=== PATIENT | female | born 1945 | race Caucasian/White ===

== ENCOUNTER 2016-12-11 17:01 | Emergency (ER) | payer OTHER ==
[~2016-12-11] VITALS: Ht 163.8 cm; Wt 70.9 kg
[~2016-12-11 17:01] MED LIST: ACET-749 PO; ALBUAER2 INH; PENI-82 PO
[2016-12-11 17:21] VITALS: TEMP 36.7; Ht 163.8 cm; Wt 70.9 kg
[2016-12-11] MEDS ORDERED: EMPTY 8 DRAM VIAL ONE (19:39)
--- NOTE | 2016-12-11 19:42 | EMERGENCY ROOM VISIT NOTE ---
History Report prepared by Zoey: Tracey Shane Under the Supervision of: Dr. Esa Levy M.D. First contact with patient: 19:24 Chief Complaint: OTHER COMPLAINT Stated Complaint: CELLULITUS History of Present Illness The patient is a 71 year old female who presents to the Emergency Room with complaints of a possible worsening infection on her right leg that started on November 10. She notes while she was on vacation, she first noticed redness and swelling on her right lower leg. That evening, she started developing a fever, chills and nausea. She got back into town from vacation 5 days later, and saw the [facility] twice for antibiotic injections. She then followed up with her PCP, Dr. Hoyt with [facility], and was placed on a 10 day course of Keflex. She noticed no improvement, and was then placed on Doxycycline, and after that Clindamycin, which she is still taking. Dr. Hoyt then referred the patient to infectious disease, and she is set to see Dr. Hale with [facility] next Thursday, 6 days from now. The patient rates her current discomfort as a 0/10. She also notes she got bit by something on her right hip area and the area has been very itchy. She admits to scratching excessively, but has not taken any Benadryl for the itching yet. The patient denies any recent fevers or chills. She admits to some nausea but notes this may be from the antibiotics she has been taking. She is taking a probiotic while on the antibiotics. Source of History: patient Onset: November 10, 2016 Position: leg (right) Symptom Intensity: 0/10 Timing: worsening Modifying Factors (Relieving): other (Clindamycin, Doxycycline, Keflex) Associated Symptoms: + nausea, No fevers, No chills Review of Systems See HPI for pertinent positives & negatives. A total of 10 systems reviewed and were otherwise negative. Past Medical & Surgical Medical Problems: (1) Asthma Social History Smoking Status: Former Smoker Alcohol Use: none Drug Use: none Marital Status: Housing Status: lives alone Occupation Status: employed Current/Historical Medications Scheduled Cholecalciferol (Vitamin D3), 1 TAB PO DAILY Clindamycin Hcl (Cleocin), 1 CAP PO BID Doxycycline Hyclate (Doxycycline Hyclate), 1 TAB PO BID Metformin Hcl (Glucophage), 500 MG PO DAILY Nortriptyline (Pamelor), 10 MG PO HS Scheduled PRN Albuterol Hfa (Ventolin Hfa), 2 PUFFS INH Q4 PRN for Wheezing Hydrocodone/Acetaminophen 5MG/325MG (Madison 5MG/325MG), 1 TABLET PO Q6 PRN for Pain Allergies Coded Allergies: Sulfamethoxazole w/Trimethoprim (Verified Allergy, Intermediate, GI SYMPTOMS, 12/11/16) Molds and Smuts (Unverified Allergy, Mild, 12/11/16) Clarithromycin (Verified Adverse Reaction, Unknown, NAUSEA AND VOMITING, ) Uncoded Allergies: GRASSES (Allergy, Mild, 11/28/06) Physical Exam Vital Signs Date Time Temp Pulse Resp B/P (MAP) Pulse Ox O2 Delivery O2 Flow Rate FiO2 12/11/16 19:53 76 18 169/107 92 12/11/16 17:21 36.7 89 20 164/71 93 Room Air Physical Exam GENERAL: Patient is in no acute distress. HEENT: No acute trauma, normocephalic atraumatic, mucous membranes moist, no nasal congestion, no scleral icterus. NECK: No stridor, no adenopathy, no meningismus, trachea is midline. LUNGS: Clear to auscultation bilaterally, no wheeze, no rhonchi, breath sounds equal. HEART: Without murmurs gallops or rubs, regular rate and rhythm. ABDOMEN: Soft, nontender, bowel sounds positive, no hernias, no peritonitis. EXTREMITIES: No cyanosis or edema, full range of motion of all the joints without pain or difficulty, no signs for acute trauma. NEUROLOGIC: Oriented x 3, no acute motor or sensory deficits, no focal weakness. SKIN: Right lower extremity erythema with dry skin, consistent with possible resolving cellulitis. Mild warmth present, no drainage. Area of erythema to the right buttock consistent with an insect bite. Mild warmth, no drainage. Patient states the area is itchy. Medical Decision & Procedures Medications Administered Medications (Trade) Dose Ordered Sig/Iris Route Start Time Stop Time Status Last Admin Dose Admin Diphenhydramine HCl (Benadryl Cap) 50 mg NOW ONCE PO 12/11/16 19:45 12/11/16 19:46 DC 12/11/16 19:53 50 MG ED Course 1925: The patient was evaluated in room C8. A complete history and physical exam was performed. 1944: I reevaluated the patient. She is feeling well and resting comfortably. I discussed her results and discharge instructions and she verbalized complete understanding and agreement. 1944: Benadryl 50 mg PO. Medical Decision The differential diagnoses considered include cellulitis, insect bite or sting, failed outpatient treatment. The patient presents with some itchy red area to the right buttock. The right lower extremity is currently being treated for cellulitis and the patient was concerned that the red area to the buttock was spread of the cellulitis. There has been no fever or vomiting. She actually believes the right lower extremity redness is improving. She admits that she was bitten or stung by an insect yesterday in the right buttock area and she states this area has been itchy ever since. The patient is suffering from a local reaction from an insect bite or sting in the right buttock. I do not believe this is spread of her cellulitis. She was reassured. She is being discharged to continue her clindamycin and to return for fever or worsening symptoms. She has an ID appointment in several days. Medication Reconcilliation Current Medication List: was personally reviewed by me Blood Pressure Screening Patient's blood pressure: Elevated blood pressure Blood pressure disposition: Elevated BP felt to be situational Impression Primary Impression: Insect bite Additional Impression: Cellulitis Scribe Attestation The scribe's documentation has been prepared under my direction and personally reviewed by me in its entirety. I confirm that the note above accurately reflects all work, treatment, procedures, and medical decision making performed by me. Departure Information Dispostion Home / Self-Care Referrals Niles Hoyt M.D.([facility]) (PCP) Patient Instructions My [facility] Additional Instructions use benadryl 2 tab 3x per day for the itching and redness of the buttock continue the clindamycin return for fever or chills or worsening redness follow with ID as scheduled Problem Qualifiers
[2016-12-11 19:53] VITALS: BP 169/107; PULSE 76; O2SAT 92
[2016-12-11] MEDS ORDERED: CHOL20007 PO (19:58)
[2016-12-11] MEDS ORDERED: GLC/500 PO (20:03)
[2016-12-11] MEDS ORDERED: HYDR-5688 PO (20:03)
[2016-12-11] MEDS ORDERED: DOXY100T PO (20:03)
[2016-12-11] MEDS ORDERED: VNTHFA/IN INH (20:03)
[2016-12-11] MEDS ORDERED: CLIN300C2 PO (20:03)
[2016-12-11] MEDS ORDERED: NORT10CA2 PO (20:04)
== END 2016-12-11 19:55 | disposition home or self-care (01) ==
LOC: C.EDB 17:02 → C.EDC 19:55
DX: L03.317 Cellulitis of buttock (principal); W57.XXXA Bitten or stung by nonvenomous insect and other nonvenomous arthropods, initial encounter; J45.909 Unspecified asthma, uncomplicated; Z87.891 Personal history of nicotine dependence; Z88.2 Allergy status to sulfonamides; Z88.3 Allergy status to other anti-infective agents; Z91.09 Other allergy status, other than to drugs and biological substances; Z79.84 Long term (current) use of oral hypoglycemic drugs; Z79.899 Other long term (current) drug therapy

== ENCOUNTER → 2016-12-17 | Outpatient (CLI) | payer OTHER ==
[~2016-12-17] MED LIST changes: -ACET-749 PO; -ALBUAER2 INH; +CHOL20007 PO; +CLIN300C2 PO; +DOXY100T PO; +GLC/500 PO; +HYDR-5688 PO; +NORT10CA2 PO; -PENI-82 PO; +VNTHFA/IN INH
[2016-12-17 19:38] LABS: LYME DISEASE AB IGG NEG (NEG); LYME DISEASE AB IGM NEG (NEG)
== END | disposition home or self-care (01) ==
LOC: C.LAB1850 16:17
PROVIDERS: ATTEND Internal Medicine Infectious Disease
DX: L03.115 Cellulitis of right lower limb (principal)

== ENCOUNTER 2023-06-12 13:48 | Inpatient (IN) ==
--- NOTE | 2023-06-12 13:52 | ED Triage Note ---
Date of Service June 12, 2023 Provider in Triage Author: Monika Rodriguez History of Present Illness This patient was briefly evaluated while in triage. An abbreviated physical exam was performed. This patient is a 77-year-old Female who presents to the ED for evaluation of shob, reports hx COPD and bronchial asthma. Reports started one week ago. 87% in triage. Physical Exam Initial orders for labs and / or imaging were placed and patient was placed in the waiting area until a bed is available. Please see further documentation for the full ED course.
--- NOTE | 2023-06-12 15:05 | XRay Report ---
XR chest 1V not portable HISTORY: Dyspnea COMPARISON: Chest CT outside hospital 03/19/2021 FINDINGS: The heart is enlarged. There is diffuse interstitial/vascular thickening consistent with mi ld pulmonary edema. There are small bilateral pleural effusions. No pneumothorax. Bibasilar linear de nsities favor subsegmental atelectasis. Calcifications within the aortic knob. No acute fractures. IMPRESSION: Cardiomegaly with mild pulmonary edema and small bilateral pleural effusions. ACT 112: Negative or not required by law. Electronically signed by: Bowen Love M.D. 06/12/2023 3:04 PM
[2023-06-12 15:23] LABS: Basophils # (auto) 0.05 K/uL (0.00-0.20); Basophils % (auto) 0.3 %; Eosinophils # (auto) 0.07 K/uL (0.00-0.50); Eosinophils % (auto) 0.5 %; Hematocrit (blood only) 35.6 % (37.0-47.0); Hemoglobin 11.5 g/dl (12.0-16.0); Immature Granulocytes # (auto) 0.07 K/uL (0.01-0.20); Immature Granulocytes % (auto) 0.5 %; Lymphocytes # (auto) 1.15 K/uL (1.20-3.40); Lymphocytes % (auto) 7.5 %; Mean Corpuscular Hemoglobin 29.3 pg (25.0-34.0); Mean Corpuscular Hgb Conc 32.3 g/dL (32.0-36.0); Mean Corpuscular Volume 90.8 fL (80.0-100.0); Mean Platelet Volume 9.3 fL (9.4-12.4); Monocytes # (auto) 1.02 K/uL (0.11-0.59); Monocytes % (auto) 6.7 %; Neutrophils # (auto) 12.88 K/uL (1.40-6.50); Neutrophils % (auto) 84.5 %; Platelet Count 383 K/uL (130-400); RDW Coefficient of Variation 12.8 % (11.5-14.5); RDW Standard Deviation 42.1 fL (36.4-46.3); Red Blood Count 3.92 M/uL (4.20-5.40); White Blood Count 15.24 K/ul (4.8-10.8)
[2023-06-12 15:39] LABS: Albumin Globulin Ratio 1.1 (0.9-2); Albumin Level 3.6 gm/dl (3.4-5.0); BUN Creatinine Ratio 30.7 (10-20); Bilirubin,Total 0.3 mg/dl (0.2-1.0); Calcium 9.3 mg/dl (8.6-10.3); Creatinine Clr Calc Pharmacy 64.9 ml/min; Est GFR (African American) 89.7 ml/min; Est GFR (Non-African American) 77.4 ml/min; Globulin 3.3 gm/dl (2.5-4.0); Magnesium 1.7 mg/dl (1.7-2.4); Total Protein 6.9 gm/dl (6.0-8.3)
--- NOTE | 2023-06-12 15:46 | Electrocardiogram Report ---
Test Reason : Blood Pressure : / mmHG Vent. Rate : 093 BPM Atrial Rate : 093 BPM P-R Int : 136 ms QRS Dur : 096 ms QT Int : 352 ms P-R-T Axes : 042 -14 026 degrees QTc Int : 437 ms Normal sinus rhythm Inferior infarct , age undetermined Poor R wave progression, consider anterior AK vs. lead placement vs. LVH Abnormal ECG No previous ECGs available Confirmed by Eric Murray ([id number]) on 06/12/2023 3:45:48 PM Referred By: Confirmed By:Eric Murray
[2023-06-12 15:49] LABS: Troponin I High Sensitivity 3508.2 pg/ml (0-14)
[2023-06-12 15:58] LABS: Influenza A virus by PCR Negative (Neg); Influenza B virus by PCR Negative (Neg); RSV by PCR Negative (Neg); SARS CoV2 RNA(COVID-19) Ceph NEGATIVE (Negative)
[2023-06-12] MEDS: ALBUT/IPRATROP 3MG/0.5MG NEB 3 ML VIAL INH STA (16:11)
[2023-06-12] MEDS: methylPREDNISolone 125 MG/2 ML VIAL IV STA (16:11)
[2023-06-12] MEDS: FUROSEMIDE 40 MG/4 ML VIAL IV ONE ×2 (16:55)
--- NOTE | 2023-06-12 17:46 | History & Physical Report ---
Date of Service June 12, 2023 Assessment & Plan (1) Shortness of breath: Plan: Patient appears to have had some kind of cardiac event last weekend when she reported severe intermittent chest pain and then worsening shortness of breath on Thursday. It is now Thursday and she is no better despite prednisone which normally helps her for COPD exacerbations. She is not wheezing and has no new sputum changes or respiratory symptoms or wheezing that would be suggestive of a COPD exacerbation. She has no known cardiac history but does have risk factors for CAD, and currently has an elevation in troponin enzyme to 3508. She also has EKG changes that are concerning for possible ischemia including ST depressions in I and AVL, and in V4-6. Repeat trop decreased to 3172 and she remains chest pain-free. I am somewhat concerned that her SOB is her anginal equivalent given the history and risk factors for CAD and with her history. She was given ASA 324mg and started on nitro paste with improvement in breathing symptoms. Of note, she also had a good diuretic response to Lasix with 1800cc out around the same time. Will start heparin drip for treatment of possible NSTEMI and trend EKG and enzymes overnight. Consult cardiology and echo ordered. (2) Congestive heart failure: Plan: Patient has new pleural effusions and pulmonary edema. She may have acute heart failure to describe her shortness of breath. Given Lasix today with improvement in breathing symptoms. Echo pending. Hold on additional Lasix in the morning for now until she can be re-evaluated. (3) Diabetes mellitus, type 2: Plan: chronic, stable. Hold metformin and continue with basal bolus insulin while hospitalized. (4) Migraine: Plan: chronic, hold on NSAIDs at this time. APAP as needed. (5) Hypertension: Plan: chronic, stable. Cont home losartan. (6) Chronic obstructive pulmonary disease: Plan: chronic, stable. Not in exacerbation. Cont home inhalers. (7) Nocturnal hypoxemia: Plan: Per records she is chronically on 2-3 LPM at night for treatment of COPD. Cont oxygen support as needed, with worsening hypoxia likely related to pleural effusions/pulm edema mentioned above. DVT proph: heparin Full Code as confirmed with patient and her family on admission. Dispo- to PCU. I spent a total [id number] coordinating, documenting, and providing care for this patient excluding time spent in the performance of separately billed services DO Zaheer [facility] History of Present Illness Chief Complaint: respiratory problems Primary Care Provider: Cordell Yi MD The patient is a 77 yo F with no known cardiac history who presents with shortness of breath. She is requiring oxygen which she doesn't normally use during the day at home, but is on it at 2LPM at night for COPD. She reports SOB that has been progressive over the past two weeks, getting worse over the weekend. The weekend worsening was also associated with intermittent chest discomfort. that lasted SAt and Sun and then resolved. She reports that on Thursday, there was no further chest pain but her breathing got worse. She reports no increased cough outside of her usual sputum production and no fevers or chills. Nasal swab is negative today for viral illness. She reports her chest pain was in the left anterior chest wall and travelled to her left shoulder. Denies palpitations. It wasn't clear what was making the chest pain worse or better per history but it was described as intermittent. Pt reports normal appetite and normal BMs. She has had fatigue and difficulty sleeping 2/2 headaches at home that have been persistent since Jan. She takes 4-6 Advil or 4 Aleve per day to treat the headache but that typically won't completely help and she has to rely on oxycodone, but doesn't use this daily. As a result of the shortness of breath, she went to urgent care on and received a course of prednisone. She reports taking prednisone 50mg on and Thu with no improvement, and with breathing worsening she decided to come to the ER. Denies active chest pain at this time. She is still reporting some SOB as if she cannot take a full breath in. She reports using Nicorette lozenges approx 10 radha of 4mg daily since quitting smoking several years ago. She drinks two cups of coffee daily. She is a diabetic on metformin and has HTN and hyperlipidemia. CXR today reveals mild pulmonary edema and bilateral pleural effusions which are new. She does have a slight increase in her WBC count which may be from the prednisone or some other active inflammation. She was given one dose of Lasix 40mg IV and had 1800cc out in response to this. Allergies Allergy/AdvReac Type Severity Reaction Status Date / Time Bactrim Allergy Intermediate GI SYMPTOMS Verified 12/11/16 20:08 sulfamethoxazole AdvReac Intermediate GI SYMPTOMS Verified 03/31/23 14:00 trimethoprim AdvReac Intermediate GI SYMPTOMS Verified 03/31/23 14:00 clarithromycin AdvReac Mild NAUSEA AND Verified 03/31/23 14:00 VOMITING Home Medications Medication Instructions Recorded Confirmed Type losartan 25 mg tablet 25 mg PO HS 03/01/19 06/12/23 History ibuprofen 200 mg tablet (Advil) 200 mg PO QID PRN Pain 03/07/19 06/12/23 History ipratropium 0.5 mg-albuterol 3 mg 3 ml inhalation Q6H PRN wheezing, 06/21/19 06/12/23 Rx (2.5 mg base)/3 mL nebulization dyspnea, cough #90 mL soln oxycodone-acetaminophen 5 mg-325 1 tab PO Q6H PRN pain #20 tabs 10/17/19 06/12/23 Rx mg tablet (Percocet) omeprazole 20 mg tablet,delayed 20 mg PO QAM 06/22/20 06/12/23 History release Oxygen Home [id number] #1 ea 06/05/22 06/12/23 Rx metformin 500 mg tablet 500 mg PO BID 03/31/23 06/12/23 History nortriptyline 10 mg capsule 50 mg PO HS 03/31/23 06/12/23 History albuterol sulfate 90 mcg/actuation 2 puff inhalation Q4H PRN Wheezing 04/03/23 06/12/23 Rx aerosol inhaler #6.7 grams fluticasone fur. 200 mcg-umeclid 1 inh inhalation DAILY #90 puffs 04/03/23 06/12/23 Rx 62.5 mcg-vilant 25 mcg inhalat.powder (Trelegy Ellipta) atorvastatin 20 mg tablet 20 mg PO QAM 06/12/23 06/12/23 History baclofen 10 mg tablet 10 mg PO HS 06/12/23 06/12/23 History lubiprostone 24 mcg capsule 24 mcg PO BID 06/12/23 06/12/23 History (Amitiza) prednisone 10 mg tablet See Rx Instructions .Route .COMPLEX 06/12/23 06/12/23 History Past Med/Surg History Medical History (Updated 06/12/23 @ 21:04 by Rhea Benedict, ) Nocturnal hypoxemia Cervical spinal stenosis per [facility] record Cervical myofascial pain syndrome per s record GERD (gastroesophageal reflux disease) Asthma-COPD overlap syndrome inh and nebulizer prn Thoracic outlet syndrome hx Heartburn hx Diabetes mellitus, type 2 oral med Migraine hx On home oxygen therapy 3L/MIN NC HS + WHILE SLEEPING Chronic obstructive pulmonary disease Hypertension Surgical History History of open reduction and internal fixation (ORIF) procedure 1972-fix compound fx rt leg. Hx laparoscopic cholecystectomy History of esophagogastroduodenoscopy (EGD) History of removal of cyst behind left ear History of oral surgery gum sx History of tooth extraction all top teeth; getting 7 teeth removed on 05/08/22 History of surgery RIB REMOVAL FOR THORACIC OUTLET SYNDROME History of section X 2 History of tonsillectomy History of colonoscopy Family History Other No family history of adverse response to anesthesia Social History Smoking Status: Former smoker Tobacco Type: Cigarettes Age Started Using Tobacco: 19; Age Quit Using Tobacco: 69; packs per day: 1; Second Hand Exposure: No; Do You Dip or Chew Tobacco: No; Hx Alcohol Use: No Hx Substance Use: No Preferred Language: Maltese Communication Ability: Effective Gas Producer Required: No Beliefs That Will Affect Care: None Current Living Situation: Alone Feels Safe at Home: Yes Assistive Devices: Glasses, Nebulizer and Oxygen - at Night Physical Exam Physical Exam: CONSTITUTIONAL: WNWD, vitals as above, generally well-appearing, NAD EYES: normal conjunctivae, no scleral icterus ENT: external ear and nose normal, MMM RESPIRATORY: clear to auscultation bilaterally with mild crackles at the bases. No wheezing or rales or rhonchi, normal respiratory effort. CARDIOVASCULAR: regular rate and rhythm, S1 and 2 heard without murmurs, gallops or rubs, no JVD, no peripheral edema CHEST: inspection of chest was normal GASTROINTESTINAL: normal bowel sounds, soft, nontender, ND, no guarding MUSCULOSKELETAL: strength 5/5 throughout, head is normocephalic and atraumatic SKIN: warm and dry NEUROLOGIC: CN 2-12 grossly intact, no sensory deficit, normal cognition, normal speech, no tremor PSYCHIATRIC: alert cooperative and oriented to person, place and time. Euthymic mood, makes good eye contact, language grossly intact, recent and remote memory grossly intact. Intermittent confusion noted on occasion, but mostly clear. Results & Data Results & Data Vital Signs (Past 12 Hours) Vital Signs Temp Pulse Pulse Resp BP BP Pulse Ox 06/12/23 16:18 89 06/12/23 16:07 06/12/23 16:06 93 H 24 95 06/12/23 16:04 36.8 C 93 H 18 149/74 H 95 06/12/23 13:49 36.8 C 97 H 16 163/83 H 87 L O2 Del Method O2 Flow Rate 06/12/23 16:18 06/12/23 16:07 Nasal Cannula 2 06/12/23 16:06 Nasal Cannula 2 06/12/23 16:04 Nasal Cannula 2 06/12/23 13:49 Room Air Laboratory Results Short CBC 06/12/23 Range/Units 15:08 WBC 15.24 H (4.8-10.8) K/ul Hgb 11.5 L (12.0-16.0) g/dl Hct 35.6 L (37.0-47.0) % Plt Count 383 (130-400) K/uL BMP 06/12/23 15:08 Sodium 136 Potassium 4.0 Chloride 101 Carbon Dioxide 27 BUN 23 Creatinine 0.75 Glucose 168 H Calcium 9.3 Liver Function 06/12/23 Range/Units 15:08 Total Bilirubin 0.3 (0.2-1.0) mg/dl AST 14 (13-39) U/L ALT 21 (7-52) U/L Alkaline Phosphatase 130 H (34-104) U/L Albumin 3.6 (3.4-5.0) gm/dl Urine 06/12/23 Range/Units Unknown Urine Color Yellow Urine Appearance Clear (Clear) Urine pH 6.0 (4.5-7.5) Ur Specific Jenner 1.009 (1.000-1.030) Urine Protein Negative (Negative) Urine Glucose (UA) Negative (Negative) Diagnostic Findings Chest X-Ray 06/12/23 13:52 XR chest 1V not portable HISTORY: Dyspnea COMPARISON: Chest CT outside hospital 03/19/2021 FINDINGS: The heart is enlarged. There is diffuse interstitial/vascular thickening consistent with mild pulmonary edema. There are small bilateral pleural effusions. No pneumothorax. Bibasilar linear densities favor subsegmental atelectasis. Calcifications within the aortic knob. No acute fractures. IMPRESSION: Cardiomegaly with mild pulmonary edema and small bilateral pleural effusions. ACT 112: Negative or not required by law. Electronically signed by: Bowen Love M.D. 06/12/2023 3:04 PM Medications Administered Current Inpatient Medications Heparin Sodium (Porcine) (Heparin Sod (Porcine) 1000 Unit/Ml) 1 units IV NOW ONE Stop: 06/12/23 21:14 Heparin Sodium/Dextrose (Heparin Iv Adult Wt-Based Standard W/ Initial Bolus Protocol) 1 each IV NOW STA; Protocol Stop: 06/12/23 20:59 Heparin Sodium/Dextrose (Heparin Sodium/Dextrose) 25,000 units in 500 mls @ 0.02 mls/hr IV .Q24H MORRO; Protocol Stop: 07/12/23 21:14 Nitroglycerin (Nitroglycerin 2% Ointment 30gm Tube) 0.5 inch EXT Q6H MORRO Stop: 07/12/23 16:59 Last Admin: 06/12/23 19:02 Dose: 0.5 inch (2) Congestive heart failure Heart failure chronicity: acute Heart failure type: unspecified Qualified Code(s): I50.9 - Heart failure, unspecified
--- NOTE | 2023-06-12 18:15 | Emergency Department Note ---
History of Present Illness General Chief Complaint: Respiratory Problems Stated Complaint: CANNOT BREATHE Time Seen by Provider: 06/12/23 15:49 History of Present Illness Provider Complaint: shortness of breath Onset (ago): week(s) (1) Severity: moderate Consistency/Duration: + progressively worsening Relieved By: + oxygen Exacerbated By: + lying flat, + exertion and + coughing Known history of: COPD Associated symptoms: + chest pain (Tightness), + wheezing and + orthopnea; no pain with inspiration, no fever, no cough, no sputum production, no polyuria, no palpitations, no hemoptysis, no diaphoresis or no abdominal pain Treatment prior to arrival: oxygen HPI Narrative: Patient reports increased swelling of her bilateral lower extremities. No history of CHF. Family history of CHF. No chest pain difficulty breathing. Related Data Home oxygen amount: as needed at night Home Medications Medication Instructions Recorded Confirmed Type losartan 25 mg tablet 25 mg PO HS 03/01/19 06/12/23 History ibuprofen 200 mg tablet (Advil) 200 mg PO QID PRN Pain 03/07/19 06/12/23 History ipratropium 0.5 mg-albuterol 3 mg 3 ml inhalation Q6H PRN wheezing, 06/21/19 06/12/23 Rx (2.5 mg base)/3 mL nebulization dyspnea, cough #90 mL soln oxycodone-acetaminophen 5 mg-325 1 tab PO Q6H PRN pain #20 tabs 10/17/19 06/12/23 Rx mg tablet (Percocet) omeprazole 20 mg tablet,delayed 20 mg PO QAM 06/22/20 06/12/23 History release Oxygen Home E0424 #1 ea 06/05/22 06/12/23 Rx metformin 500 mg tablet 500 mg PO BID 03/31/23 06/12/23 History nortriptyline 10 mg capsule 50 mg PO HS 03/31/23 06/12/23 History albuterol sulfate 90 mcg/actuation 2 puff inhalation Q4H PRN Wheezing 04/03/23 06/12/23 Rx aerosol inhaler #6.7 grams fluticasone fur. 200 mcg-umeclid 1 inh inhalation DAILY #90 puffs 04/03/23 06/12/23 Rx 62.5 mcg-vilant 25 mcg inhalat.powder (Trelegy Ellipta) atorvastatin 20 mg tablet 20 mg PO QAM 06/12/23 06/12/23 History baclofen 10 mg tablet 10 mg PO HS 06/12/23 06/12/23 History lubiprostone 24 mcg capsule 24 mcg PO BID 06/12/23 06/12/23 History (Amitiza) prednisone 10 mg tablet See Rx Instructions .Route .COMPLEX 06/12/23 06/12/23 History Allergies Allergy/AdvReac Type Severity Reaction Status Date / Time Bactrim Allergy Intermediate GI SYMPTOMS Verified 12/11/16 20:08 sulfamethoxazole AdvReac Intermediate GI SYMPTOMS Verified 03/31/23 14:00 trimethoprim AdvReac Intermediate GI SYMPTOMS Verified 03/31/23 14:00 clarithromycin AdvReac Mild NAUSEA AND Verified 03/31/23 14:00 VOMITING Past Med/Surg History Medical History Cervical spinal stenosis per [facility] record Cervical myofascial pain syndrome per s record GERD (gastroesophageal reflux disease) Asthma-COPD overlap syndrome inh and nebulizer prn Thoracic outlet syndrome hx Heartburn hx Diabetes mellitus, type 2 oral med Migraine hx On home oxygen therapy 3L/MIN NC HS + WHILE SLEEPING Chronic obstructive pulmonary disease Hypertension Surgical History History of open reduction and internal fixation (ORIF) procedure 1973-fix compound fx rt leg. Hx laparoscopic cholecystectomy History of esophagogastroduodenoscopy (EGD) History of removal of cyst behind left ear History of oral surgery gum sx History of tooth extraction all top teeth; getting 7 teeth removed on 05/08/22 History of surgery RIB REMOVAL FOR THORACIC OUTLET SYNDROME History of section X 2 History of tonsillectomy History of colonoscopy Family History Other No family history of adverse response to anesthesia Social History Smoking Status: Former smoker Tobacco Type: Cigarettes Age Started Using Tobacco: 19; Age Quit Using Tobacco: 69; packs per day: 1; Second Hand Exposure: No; Do You Dip or Chew Tobacco: No; Hx Alcohol Use: No Hx Substance Use: No Preferred Language: Belgian Communication Ability: Effective Human Resource Professional Required: No Beliefs That Will Affect Care: None Current Living Situation: Alone Feels Safe at Home: Yes Assistive Devices: Glasses, Nebulizer and Oxygen - at Night Physical Exam 2 Vital Signs: Vital Signs - 24 hr 06/12/23 13:49 06/12/23 16:04 06/12/23 16:06 Temperature 36.8 C 36.8 C Temperature Source Temporal Artery Sc an Oral Pulse Rate 97 H 93 H Pulse Rate [Apical ] 93 H Pulse Rhythm Regular Pulse Rhythm [Apic al] Regular Pulse Strength [Ap ical] Normal Respiratory Rate 16 18 24 Respiratory Effort / Characteristics Non-Labored Sponta neous SOB on Exertion Respiratory Depth Normal Normal Respiratory Patter n Regular Blood Pressure 163/83 H Blood Pressure [Le ft Arm] 149/74 H Blood Pressure Radha n 109 Blood Pressure Radha n [Left Arm] 99 Pulse Oximetry 87 L 95 95 Oxygen Delivery Me thod Room Air Nasal Cannula Nasal Cannula Oxygen Flow Rate 2 2 Sepsis Recent Feve r Within 48 Hours No Sepsis New/Unexpla ined Change in Men jose Status No Sepsis Action Take n by Nursing No Action Required 06/12/23 16:07 06/12/23 16:18 Temperature Temperature Source Pulse Rate 89 Pulse Rate [Apical ] Pulse Rhythm Pulse Rhythm [Apic al] Pulse Strength [Ap ical] Respiratory Rate Respiratory Effort / Characteristics SOB on Exertion Respiratory Depth Normal Respiratory Patter n Regular Blood Pressure Blood Pressure [Le ft Arm] Blood Pressure Radha n Blood Pressure Radha n [Left Arm] Pulse Oximetry Oxygen Delivery Me thod Nasal Cannula Oxygen Flow Rate 2 Sepsis Recent Feve r Within 48 Hours Sepsis New/Unexpla ined Change in Men jose Status Sepsis Action Take n by Nursing Physical Exam: Physical Exam GENERAL: oriented to person, place, and time. appears well-developed and well- nourished. HENT: Exam performed. - Head: Normocephalic and atraumatic. EYES: Conjunctivae and EOM are normal. Right eye exhibits no discharge. Left eye exhibits no discharge. No scleral icterus. NECK: Normal range of motion. Neck supple. No JVD present. CV: Normal rate, regular rhythm, normal heart sounds and intact distal pulses. 2+ pitting edema of the bilateral lower extremities. Palpable radial pulses bue. PULM/CHEST: Inspiratory crackles at bases. ABD: The abdomen is soft. There is no tenderness. NEURO: Motor and sensation grossly intact. SKIN: Skin is warm and dry. He is not diaphoretic. PSYCH: normal mood and affect. Behavior is normal. Judgment and thought content normal. Course Course 1549: The patient was evaluated in room B2. A complete history and physical exam was performed Administered Medications Discontinued Medications Albuterol (Albut/Ipratrop 3mg/0.5mg Neb 3 Ml Vial) 3 ml INH NOW STA Stop: 06/12/23 13:53 Last Admin: 06/12/23 16:11 Dose: Not Given Documented By: SAM Furosemide (Furosemide 40 Mg/4 Ml Vial) 40 mg IV ONE ONE Stop: 06/12/23 16:17 Last Admin: 06/12/23 16:55 Dose: 40 mg Documented By: SAM Furosemide (Furosemide 40 Mg/4 Ml Vial) Confirm Administered Dose 40 mg IV .STK- MED ONE Stop: 06/12/23 16:50 Last Admin: 06/12/23 16:55 Dose: Not Given Documented By: SAM Methylprednisolone (Methylprednisolone 125 Mg/2 Ml Vial) 125 mg IV NOW STA Stop: 06/12/23 13:53 Last Admin: 06/12/23 16:11 Dose: Not Given Documented By: SAM Medical Decision Making Laboratory Data Attestation: I reviewed the patient's lab results. 06/12/23 15:08 06/12/23 15:08 Lab Results 06/12/23 06/12/23 06/12/23 Range/Units 15:06 15:08 Unknown WBC 15.24 H (4.8-10.8) K/ul RBC 3.92 L (4.20-5.40) M/uL Hgb 11.5 L (12.0-16.0) g/dl Hct 35.6 L (37.0-47.0) % MCV 90.8 (80.0-100.0) fL MCH 29.3 (25.0-34.0) pg MCHC 32.3 (32.0-36.0) g/dL RDW Std Deviation 42.1 (36.4-46.3) fL RDW Coeff of Monica 12.8 (11.5-14.5) % Plt Count 383 (130-400) K/uL MPV 9.3 L (9.4-12.4) fL Immature Gran % (Auto) 0.5 % Neut % (Auto) 84.5 % Lymph % (Auto) 7.5 % [place] % (Auto) 6.7 % Eos % (Auto) 0.5 % Baso % (Auto) 0.3 % Neut # (Auto) 12.88 H (1.40-6.50) K/uL Lymph # (Auto) 1.15 L (1.20-3.40) K/uL [place] # (Auto) 1.02 H (0.11-0.59) K/uL Eos # (Auto) 0.07 (0.00-0.50) K/uL Baso # (Auto) 0.05 (0.00-0.20) K/uL Immature Gran # (Auto) 0.07 (0.01-0.20) K/uL Sodium 136 (136-145) mmol/L Potassium 4.0 (3.5-5.1) mmol/L Chloride 101 (98-107) mmol/L Carbon Dioxide 27 (21-32) mmol/L Anion Gap 8 (3-11) BUN 23 (6-23) mg/dl Creatinine 0.75 (0.6-1.2) mg/dl Est Cr Clr Drug Dosing 64.9 ml/min Est GFR ( Amer) 89.7 ml/min Est GFR (Non-Af Amer) 77.4 ml/min BUN/Creatinine Ratio 30.7 H (10-20) Glucose 168 H (70-99(Fasting)) mg/dl Calcium 9.3 (8.6-10.3) mg/dl Magnesium 1.7 (1.7-2.4) mg/dl Total Bilirubin 0.3 (0.2-1.0) mg/dl AST 14 (13-39) U/L ALT 21 (7-52) U/L Alkaline Phosphatase 130 H (34-104) U/L Troponin I High Sens 3508.2 H* 3179.9 H* (0-14) pg/ml B-Natriuretic Peptide 1158 H (0-100) pg/ml Total Protein 6.9 (6.0-8.3) gm/dl Albumin 3.6 (3.4-5.0) gm/dl Globulin 3.3 (2.5-4.0) gm/dl Albumin/Globulin Ratio 1.1 (0.9-2) SARS-CoV-2 (PCR) NEGATIVE (Negative) Influenza Type A (PCR) Negative (Neg) Influenza Type B (PCR) Negative (Neg) RSV (RT-PCR) Negative (Neg) Imaging Data Attestation: I personally reviewed and interpreted this imaging study as follows: My Impression: Chest x-ray: Cardiomegaly with cephalization and right-sided pleural effusion. Radiologist's Impression: Chest X-Ray 06/12/23 13:52 XR chest 1V not portable HISTORY: Dyspnea COMPARISON: Chest CT outside hospital 03/19/2021 FINDINGS: The heart is enlarged. There is diffuse interstitial/vascular thickening consistent with mild pulmonary edema. There are small bilateral pleural effusions. No pneumothorax. Bibasilar linear densities favor subsegmental atelectasis. Calcifications within the aortic knob. No acute fractures. IMPRESSION: Cardiomegaly with mild pulmonary edema and small bilateral pleural effusions. ACT 112: Negative or not required by law. Electronically signed by: Bowen Love M.D. 06/12/2023 3:04 PM ECG Data Attestation: I personally reviewed and interpreted this ECG as follows: Interpretation: EKG #1 at 1459: Sinus rhythm with rate of 93. WI QRS and QTc intervals are within normal limits. No ST elevation. Mild ST depression in leads I, aVL, V4, V5 V6. EKG #2 at 1632: Sinus rhythm with a rate of 89. WI QRS and QTc intervals within normal limits. No ST elevation. Mild ST depression in leads I, aVL, V4, V5 V6. No significant change from the first EKG. MDM Narrative Cardiac monitoring: An order was placed for continuous cardiac monitoring. The monitor shows a rate of 90 with sinus rhythm interpreted by me Patient was seen during a time of extreme volume and extreme acuity. Nursing triage protocols were initiated labs and imaging was conducted by protocol in the triage area. Clinically patient is fluid overloaded. Labs show an elevated troponin and BNP. Patient not reporting chest pain at this time. Patient will be diuresed. Plan admitting the patient to the [facility] hospitalist team. Spoke with Peg who stated to admit to Dr. Benedict. Impression & Plan Congestive heart failure Discharge Plan Visit Data Chief Complaint: Respiratory Problems Stated Complaint: CANNOT BREATHE ED Provider: Taj Vo Discharge Problem: Congestive heart failure Patient Disposition: Being Evaluated by Hospitalist Forms Stand Alone Forms: [facility], Important Visit Information Prescriptions Prescriptions: No Action ipratropium-albuterol 0.5 mg-3 mg(2.5 mg base)/3 mL solution for nebulization 3 ml INH Q6H PRN (Reason: wheezing, dyspnea, cough ) Qty: 90 3RF Patient Comments: not used in long time (DME) Oxygen Home E0424 Liters Per Minute See Rx Instructions .Route Qty: 1 0RF Rx Instructions: 2LPM at night omeprazole 20 mg tablet,delayed release (DR/EC) 20 mg PO QAM Trelegy Ellipta 200-62.5-25 mcg blister with device 1 inh inhalation DAILY Qty: 90 3RF albuterol sulfate 90 mcg/actuation HFA aerosol inhaler 2 puff INHALATION Q4H PRN (Reason: Wheezing) Qty: 6.7 3RF oxycodone-acetaminophen [Percocet] 5-325 mg tablet 1 tab PO Q6H PRN (Reason: pain) Qty: 20 0RF losartan 25 mg Tablet 25 mg PO HS ibuprofen [Advil] 200 mg Tablet 200 mg PO QID PRN (Reason: Pain) metformin 500 mg tablet 500 mg PO BID nortriptyline 10 mg capsule 50 mg PO HS prednisone 10 mg tablet See Rx Instructions .ROUTE .COMPLEX Patient Comments: Stopped taking, felt like it wasnt working Rx Instructions: tapering dose, but pt stopped taking. atorvastatin 20 mg tablet 20 mg PO QAM baclofen 10 mg tablet 10 mg PO HS lubiprostone [Amitiza] 24 mcg capsule 24 mcg PO BID Referrals Referrals: Cordell Yi MD [Primary Care Provider] - Discharge Problem: Congestive heart failure Qualifiers: Heart failure type: unspecified Heart failure chronicity: acute Qualified Code(s): I50.9 - Heart failure, unspecified
[2023-06-12] MEDS: ASPIRIN CHEW 324 MG PO STA (18:19)
[2023-06-12 18:41] LABS: Appearance Urine Clear (Clear); Bilirubin Urine Negative (Negative); Blood Urine Negative (Negative); Color Urine Yellow; Glucose Urine UA Negative (Negative); Ketones Urine Negative (Negative); Leukocyte Esterase Urine Negative (Negative); Nitrite Urine Negative (Negative); Protein Urine Negative (Negative); Specific Gravity Urine 1.009 (1.000-1.030); Urobilinogen Urine Negative (Negative)
[2023-06-12] MEDS: NITROGLYCERIN 2% OINTMENT 30GM TUBE EXT SCH (19:02)
[2023-06-12] MEDS: HEPARIN SODIUM/DEXTROSE 25,000 UNITS/500 ML BAG IV SCH (21:40)
[2023-06-12] MEDS: HEPARIN SOD (PORCINE) 1000 UNIT/ML IV ONE (21:41)
[2023-06-12 21:46] LABS: Partial Thromboplastin Ratio 0.9; Partial Thromboplastin Time 26 Seconds (21-31); Prothrombin Time 10.9 Seconds (9.0-12.0)
[2023-06-12] MEDS: Heparin IV Adult Wt-Based Standard w/ INITIAL Bolus Protocol IV STA (21:46)
[2023-06-13] MEDS ORDERED: POLYETHYLENE (MIRALAX) 17 GM PACK PO PRN (01:14)
[2023-06-13] MEDS ORDERED: GLUCOSE 10 TAB/TUBE PO PRN (01:14)
[2023-06-13] MEDS ORDERED: GLUCAGON FOR INJ 1 MG VIAL SQ PRN (01:14)
[2023-06-13] MEDS ORDERED: ALBUTEROL HFA 8 GM INHALER INH PRN (01:14)
[2023-06-13] MEDS ORDERED: MoRPHine SULFATE 2 MG/ML CARP IV PRN (01:14)
[2023-06-13] MEDS ORDERED: GLUCOSE 40% GEL 15 GM TUBE PO PRN (01:14)
[2023-06-13] MEDS ORDERED: ALUMINUM/MAGNESIUM SUSP 30 ML UDC PO PRN (01:14)
[2023-06-13] MEDS ORDERED: CARBOHYDRATES FOR HYPOGLYCEMIA PO PRN (01:14)
[2023-06-13] MEDS ORDERED: oxyCODONE/ACETAMINOPHEN 5mg/325mg TAB PO PRN (01:14)
[2023-06-13] MEDS ORDERED: ACETAMINOPHEN 325 MG TAB PO PRN (01:14)
[2023-06-13] MEDS ORDERED: DEXTROSE 50% 50 ML SYRINGE IV PRN (01:14)
[2023-06-13] MEDS: BACLOFEN 10 MG TAB PO SCH (02:13)
[2023-06-13] MEDS: LOSARTAN POTASSIUM 25 MG TAB PO SCH (02:14)
[2023-06-13] MEDS: LUBIPROSTONE 8 MCG CAP PO SCH (02:15)
[2023-06-13] MEDS: NORTRIPTYLINE HCL 10 MG CAP PO SCH (02:16)
[2023-06-13] MEDS: LANTUS PER UNIT CHARGE SQ SCH (02:25)
[2023-06-13] MEDS: INSULIN ASPART PER UNIT CHARGE SC SCH (02:26)
[2023-06-13 04:04] LABS: Hematocrit (blood only) 33.7 % (37.0-47.0); Mean Corpuscular Hemoglobin 29.3 pg (25.0-34.0); Mean Corpuscular Hgb Conc 32.6 g/dL (32.0-36.0); Mean Corpuscular Volume 89.6 fL (80.0-100.0); Mean Platelet Volume 9.5 fL (9.4-12.4); Platelet Count 346 K/uL (130-400); RDW Standard Deviation 42.9 fL (36.4-46.3); Red Blood Count 3.76 M/uL (4.20-5.40); White Blood Count 8.96 K/ul (4.8-10.8)
[2023-06-13 04:22] LABS: BUN Creatinine Ratio 27.1 (10-20); Calcium 8.6 mg/dl (8.6-10.3); Creatinine Clr Calc Pharmacy 56.9 ml/min; Est GFR (African American) 77.1 ml/min; Est GFR (Non-African American) 66.6 ml/min; Magnesium 1.7 mg/dl (1.7-2.4); Potassium 3.7 mmol/L (3.5-5.1)
[2023-06-13 04:27] LABS: ANTI-Xa, UFH(UnfractionatedHep 0.38 IU/ml (0.3-0.7)
[2023-06-13 07:04] LABS: Estimated Average Glucose 194 mg/dl; Hemoglobin A1C 8.4 % (4.5-5.6)
--- OUTSIDE RECORDS SUMMARY | 2023-06-13 07:09 | External Medical Summary | Summary of Care ---
Author Name Unknown Organization [facility] Address [address] [place] [address] Phone [phone] Care Team Providers Care Airfield Engineer Officer Name Role Phone Cordell Yi MD Primary Care Provider [phone] Encounter Details Date Type Department Care Team (Late st Contact Info) Description 06/09/2023 10:00 AM EST Medication Management Sukhjinder Aguirre [facility] [address] [place] [address] Pharmacist, Sukhjinder Aguirre [facility] [address] [place] [address] Medication management* Allergies Active Allergy Reactions Criticality Noted Date Comments Amoxicillin-Pot Clavulanate Nausea/vomiting 01/2020 Bactrim Nausea/vomiting Medium 01/28/2010 Clarithromycin Nausea/vomiting 09/15/2007 documented as of this encounter (statuses as of 06/09/2023) Medications Medication Sig Dispensed Refills Start Date End Date Status oxygen GAS Use 3 L/min(Oxygen) as directed at bedtime. During all periods of sleep. 1 Each 0 5 Active Triamcinolone Acetonide 0.5 % External Cream Apply topically to affected area 2 times a day. To affected area (eczema). 60 g 5 1 Active Additional Information Patient taking differently:Topical BID (.AM/PM),To affected area (eczema). As needed, Informant: Patient, Reported on 12/22/2022 Diclofenac Sodium 1 % External Gel (Voltaren)Indication s:Other osteoarthritis of spine, cervical region Apply 2 g topically to affected area 2 times a day. Apply the effected are of the neck 350 g 1 1 Active Additional Information Patient not taking.Informant: Patient, Reported on 06/09/2023 OneTouch Verio w/Device KitIndications:Type 2 diabetes mellitus with hemoglobin A1c goal of less than 8.0% ([facility]) Use up to 4 times a day as needed E11.9 1 Kit 0 2 Active OneTouch Delica Plus [id number] CHECK BLOOD SUGAR UP TO 4 TIMES DAILY E11.9 200 Each 1 3 Active Fluticasone Propionate 50 MCG/ACT Nasal Suspension (Flonase) Administer 2 Sprays into each nostril in the morning. 16 g 5 3 Active Ondansetron HCl 4 MG Oral Tablet Take 1 Tablet by mouth every 6 hours as needed for Nausea. 30 Tablet 0 3 Active OneTouch Verio In Vitro Strip (Glucose Blood)Indications:Ty pe 2 diabetes mellitus with hemoglobin A1c goal of less than 8.0% ([facility]) USE UP TO 4 TIMES A DAY 400 Strip 0 3 Active Lubiprostone 24 MCG Oral Capsule (Amitiza) Take 1 Capsule by mouth in the morning and 1 Capsule before bedtime. with food.. 180 Capsule 3 3 Active Montelukast Sodium 10 MG Oral Tablet (Singulair) Take 1 Tablet by mouth in the morning. 90 Tablet 3 3 Active Levocetirizine Dihydrochloride 5 MG Oral Tablet (Xyzal Allergy 24HR) Take 1 Tablet by mouth every evening. 90 Tablet 3 3 Active Losartan Potassium 25 MG Oral Tablet (Cozaar)Indications: Essential (primary) hypertension Take 1 Tablet by mouth daily. 90 Tablet 1 3 Active Nortriptyline HCl 50 MG Oral Capsule (Pamelor) Take 1 Capsule by mouth at bedtime. 90 Capsule 3 3 Active Albuterol Sulfate HFA 108 (90 Base) MCG/ACT Inhalation Aerosol SolutionIndications: COPD, group B, by GOLD 2017 classification ([facility]) TAKE 2 PUFFS BY MOUTH EVERY 4 HOURS NEEDED FOR WHEEZE 18 g 2 3 Active metFORMIN HCl 500 MG Oral Tablet (Glucophage) Take 1 tablet by mouth twice daily with meals 180 Tablet 1 3 Active Atorvastatin Calcium 20 MG Oral Tablet (Lipitor) Take 1 Tablet by mouth daily. 90 Tablet 1 3 Active Magnesium Oxide 400 MG Oral Tablet Take 1 Tablet by mouth in the morning. 30 Tablet 11 3 Active Vitamin B-2 100 MG Oral Tablet (Riboflavin) Take 4 Tablets by mouth in the morning. 120 Tablet 11 3 Active oxyCODONE-Acetaminop hen 5-325 MG Oral Tablet (Percocet)Indication s:Cervical spinal stenosis Take 1 Tablet by mouth every 6 hours as needed for Pain, Moderate. 30 Tablet 0 3 Active Omeprazole 20 MG Oral Capsule Delayed Release (PriLOSEC)Indication s:Gastroesophageal reflux disease without esophagitis TAKE 1 CAPSULE BY MOUTH IN THE MORNING 1 HOUR BEFORE THE FIRST MEAL OF THE DAY 90 Capsule 1 4 Active Polyethylene Glycol 3350 17 GM/SCOOP Oral Powder (MiraLax) Take 17 g by mouth in the morning. Dissolve one heaping tablespoon in 8 ounces of water or juice.. 714 g 1 4 Active Trelegy Ellipta 200-62.5-25 MCG/ACT Aerosol Powder Breath Activated (Fluticasone-Umeclid inium-Vilanterol) Inhale 1 Puff by mouth in the morning. 180 Blister Dosing Unit 1 3 06/09/19 24 Discontinu ed(Refill) documented as of this encounter (statuses as of 06/09/2023) Active Problems Problem Noted Date Diagnosed Date DDD (degenerative disc disease), cervical 2023 Depression with anxiety 02/19/2023 Type 2 diabetes mellitus wit h diabetic peripheral angiopathy without gangrene, without long-term current use of insulin 02/19/2023 Vitamin D insufficiency 12/04/2022 Overview: Takes supplemental d3 Irritable bowel syndrome with constipation 10/11 Overweight (BMI 25.0-29.9) 05/26/2022 Dyslipidemia 02/21/2022 Cervical spinal stenosis 02/21/2022 Cervical myofascial pain syndrome 07/17/2021 COPD, group B, by GOLD 2017 classification 10/09 Overview: Per COPD GOLD Classification Gastroesophageal reflux disease without esophagi tis 06/25/2020 Nocturnal hypoxemia 01/02/2015 Overview: 12/2014 NPO -- <89% 17 mins, mean 90.7% 11/2014 PSG -- mean 89% AHP HTN, goal below 130/80 11/16/2014 Type 2 diabetes mellitus wit h hemoglobin A1c goal of less than 8.0% 08/03/2014 Overview: ICD-10 update of inactive term Recurrent headache 05/06/2010 Overview: ICD-10 update of inactive term documented as of this encounter (statuses as of 06/09/2023) Resolved Problems Problem Noted Date Diagnosed Date Resolved Date Pure hypertriglyceridemia 09/16/2021 Food insecurity 12/03/2020 02/07/2021 Overview: Per [facility] Protocol Bronchiectasis without complication 05/28/2019 10/25/2019 Mild intermittent asthma without complication 10/10/19 18 05/24/2018 Type 2 diabetes mellitus wit h diabetic peripheral angiopathy without gangrene 10/09/2017 0 05/24/2018 Type 2 diabetes mellitus wit h diabetic peripheral angiopathy without gangrene 10/09/2017 0 05/24/2018 Blood sugar increased 10/08/20152016 Primary snoring 01/02/2015 10/23/2016 COPD, severe 01/20/2012 10/11/2020 Overview: Per COPD GOLD Classification Dry eyes 09/18/2010 10/23/2016 Migraine variant 06/18/2010 05/27/2023 Deviated nasal septum 02/07/20102018 ALLERGIC RHINITIS - MIXED TYPE 02/07/2010 10/23/2016 Asthma, moderate persistent 02/07/2010 01/20/2012 Acute sinusitis 11/29/2009 02/07/2010 Benign neoplasm of colon 10/19/2007 Overview: hyperplastic polyps--repeat 1-2 years Asthma with severity to be determined 02/07/2010 Overview: Asthma w/o status ICD-10 update of inactive term Tobacco use disorder 012 documented as of this encounter (statuses as of 06/09/2023) Immunizations Name Administration Dates Next Due COVID-19 mRNA, LNP-s, No Pre serve, 2-Dose Series (Pfizer) 06/25/2020,05/28/2020 Pneumococcal Conjugate Vacc, 13 Valent (Prevnar) 01/27/2019 Pneumococcal Polysaccharide PPV23 (Pneumovax) 03/21/2014 Seasonal Influenza, Quadriva lent Hd (Fluzone Hd) 05/01/2023 Seasonal Influenza, Quadriva lent, No Preserve, IM 05/14/2016,02/23/2015 Seasonal Influenza, Split, I IV3, With Preserve, Inj 04/12/2014,02/08/2013,02/21/2011,05/2009,05/09/2008,03/01/2008 02/26/2011 Seasonal Influenza, Trivalen t, High Dose, No Preserve, IM 01/24/2019,05/06/2018 TDAP (age 10 and older)(Boostrix) 05/24/2018 TDAP (age 11 and older)(Adacel) 10/23/2008 Zoster Vaccine Recombinant (Shingrix) 11/07/2019 ,06/16/2019 documented as of this encounter Social History Tobacco Use Types Packs/Day Years Used Date Smoking Tobacco: Former Cigarettes 1 30 Q uit: 2016 Smokeless Tobacco: Never Alcohol Use Standard Drinks/Week Comments No 0 (1 standard drink = 0.6 oz pur e alcohol) PHQ-2 Answer Date Recorded PHQ Adult Total Score 1 08/20/2022 Hunger Vital Sign Answer Date Recorded Within the past 12 months, y ou worried that your food would run out before you got the money to buy more. Never true 08/21/19 23 Within the past 12 months, t he food you bought just didn't last and you didn't have money to get more. Never true 08/20/2022 Sex and Gender Information Value Date Recorded Sex Assigned at Not on file Gender Identity Not on file Sexual Orientation Not on file Job Start Date Occupation Industry Not on file Not on file Not on file documented as of this encounter Progress Notes * Cornell Waldrop, [facility] - 06/09/2023 2:56 PM EST Jasmin Watters is a 77 year old female. Objective: Review of patient's allergies indicates: Allergen Reactions Bactrim Nausea/vomiting Augmentin [Amoxicillin-Pot Clavulanate] Nausea/vomiting Clarithromycin Nausea/vomiting Current Outpatient Medications - WARNING: List may be incomplete due to filtering Medication Sig Dispense Refill Polyethylene Glycol 3350 17 GM/SCOOP Oral Powder (MiraLax) Take 17 g by mouth in the morning. Dissolve one heaping tablespoon in 8 ounces of water or juice.. 714 g 1 Omeprazole 20 MG Oral Capsule Delayed Release (PriLOSEC) TAKE 1 CAPSULE BY MOUTH IN THE MORNING 1 HOUR BEFORE THE FIRST MEAL OF THE DAY 90 Capsule 1 oxyCODONE-Acetaminophen 5-325 MG Oral Tablet (Percocet) Take 1 Tablet by mouth every 6 hours as needed for Pain, Moderate. 30 Tablet 0 Magnesium Oxide 400 MG Oral Tablet Take 1 Tablet by mouth in the morning. 30 Tablet 11 Vitamin B-2 100 MG Oral Tablet (Riboflavin) Take 4 Tablets by mouth in the morning. 120 Tablet 11 Atorvastatin Calcium 20 MG Oral Tablet (Lipitor) Take 1 Tablet by mouth daily. 90 Tablet 1 metFORMIN HCl 500 MG Oral Tablet (Glucophage) Take 1 tablet by mouth twice daily with meals 180 Tablet 1 Albuterol Sulfate HFA 108 (90 Base) MCG/ACT Inhalation Aerosol Solution TAKE 2 PUFFS BY MOUTH EVERY4 HOURS NEEDED FOR WHEEZE 18 g 2 Nortriptyline HCl 50 MG Oral Capsule (Pamelor) Take 1 Capsule by mouth at bedtime. 90 Capsule 3 Losartan Potassium 25 MG Oral Tablet (Cozaar) Take 1 Tablet by mouth daily. 90 Tablet 1 Levocetirizine Dihydrochloride 5 MG Oral Tablet (Xyzal Allergy 24HR) Take 1 Tablet by mouth every evening. 90 Tablet 3 Montelukast Sodium 10 MG Oral Tablet (Singulair) Take 1 Tablet by mouth in the morning. 90 Tablet 3 Lubiprostone 24 MCG Oral Capsule (Amitiza) Take 1 Capsule by mouth in the morning and 1 Capsule before bedtime. with food.. 180 Capsule 3 Ondansetron HCl 4 MG Oral Tablet Take 1 Tablet by mouth every 6 hours as needed for Nausea. 30 Tablet 0 Fluticasone Propionate 50 MCG/ACT Nasal Suspension (Flonase) Administer 2 Sprays into each nostril in the morning. 16 g 5 OTOYTouch Verio w/Device Kit Use to test Blood Glucose Levels up to four times daily 1 Kit 0 Trelegy Ellipta 200-62.5-25 MCG/ACT Aerosol Powder Breath Activated (Wevjsmhoggb-Axydelgmdgdn-Yiapwzkhtg) Inhale 1 Puff by mouth in the morning. 180 Blister Dosing Unit 1 OTOYTouch PLTech In Vitro Strip (Glucose Blood) USE UP TO 4 TIMES A DAY 400 Strip 0 OTOYTouch Delica Plus [id number] CHECK BLOOD SUGAR UP TO 4 TIMES DAILY E11.9 200 Each 1 OTOYTouch VerGHash.IO w/Device Kit Use up to 4 times a day as needed E11.9 1 Kit 0 Diclofenac Sodium 1 % External Gel (Voltaren) Apply 2 g topically to affected area 2 times a day. Apply the effected are of the neck (Patient not taking: Reported on 06/09/2023) 350 g 1 Triamcinolone Acetonide 0.5 % External Cream Apply topically to affected area 2 times a day. To affected area (eczema). (Patient taking differently: Apply topically to affected area 2 times a day. Toaffected area (eczema). As needed) 60 g 5 oxygen GAS Use 3 L/min(Oxygen) as directed at bedtime. During all periods of sleep. 1 Each 0 Immunization History Administered Date(s) Administered COVID-19 mRNA, LNP-s, No Preserve, 2-Dose Series ([employer]) 05/28/2020, 06/25/2020 Hepatitis B, 20+ yrs 03/04/2001 Pneumococcal Conjugate Vacc, 13 Valent (Prevnar) 01/27/2019 Pneumococcal Polysaccharide PPV23 (Pneumovax) 03/21/2014 Seasonal Influenza, Quadrivalent Hd (Fluzone Hd) 05/01/2023 Seasonal Influenza, Quadrivalent, No Preserve, IM 02/23/2015, 05/14/2016 Seasonal Influenza, Split, IIV3, With Preserve, Inj 03/01/2008, 05/09/2008, 02/26/2010, 02/21/2011,02/08/2013, 04/12/2014 Seasonal Influenza, Trivalent, High Dose, No Preserve, IM 05/06/2018, 01/24/2019 TDAP (age 10 and older)(Boostrix) 05/24/2018 TDAP (age 11 and older)(Adacel) 10/23/2008 Varicella Vaccine (Chicken Pox) 03/04/2001 Zoster Vaccine Recombinant (Shingrix) 06/16/2019, 11/07/2019 TMR Interventions Incomplete Medication Therapy Recommendations No medication therapy recommendations to display Completed Medication Therapy Recommendations COPD, group B, by GOLD 2017 classification ([facility]) Current Medication: Trelegy Ellipta 200-62.5-25 MCG/ACT Aerosol Powder Breath Activated (Yiouivocigo-Tnoiebswtjpq-Piekmghlxp) (Discontinued) Rationale: Incorrect storage Recommendation: Provide Adherence Intervention Note: Member has been out of Trelegy for 3 weeks due to incorrect storage of her medication (medication was left in car under freezing temps) Refill too soon medication override was placed. MD contacted for new refills. Type 2 diabetes mellitus with hemoglobin A1c goal of less than 8.0% ([facility]) Current Medication: OneTouch Verio w/Device Kit Rationale: Medication product not available Recommendation: Provide Adherence Intervention Note: Member's current meter is not working properly. Contacted MD for new meter. Assessment & Plan Indication, effectiveness, safety and convenience of her medications were reviewed today. The patient's medical conditions were assessed, evaluated, and deemed meeting goals of drug therapy, with thefollowing exceptions. Additional Notes: Summary Time Spent: 16-30 min Supervising pharmacist who provided the service: Cornell Waldrop PharmD Takeaway Information Who was the recipient of the CMR service: beneficiary Language Template for the Patient Takeaway: Malawian I attest that I have reviewed and updated the patient's conditions, allergies, and medications to the best of my ability. Patient provided medication list gathered by: Antoinette Mcdermott, Babita Waldrop RPh 06/09/2023, 2:56 PM documented in this encounter Miscellaneous Notes * MTM To-Do-List - Cornell Waldrop RPh - 06/09/2023 11:14 AM EST Images from the original note were not included. What we talked about: What I should do: The importance of taking your medication as prescribed Your medicine works best when taken as prescribed. It can be hard to remember to take daily medications. Consider making it a part of your daily routine. Pair taking your medication with something you do every day, like brushing your teeth or eating a meal. Consider setting daily alarms to help remind yourself when it is time to take your medicine. Using a pill box can also help you organize your medicines. Pill boxes allow you to fill each day slot with your daily medicine and help you track when your next dose is due. What we talked about: What I should do: You have not been taking your Trelegy Maintenance Inhaler due to damaged medication. Please be careful where your medication is stored as it can affect the stability. I was able to place an override for you to obtain your medication. However, you did need a new prescription at the pharmacy, I contac danyell your doctor, Dr. Yi, to send the request. Reminder to take your medication as prescribed Yordy Paniagua. [facility]. What we talked about: What I should do: Your glucose meter, One Touch Verio, has been damaged. I contacted your doctor to obtain a prescription for a new testing meter. Contact [facility] for your new glucometer. What we talked about: What I should do: Trelegy THIS MEDICATION IS USED A CONTROLLER MEDICATION TO PREVENT ASTHMA ATTACKS. SIDE AFFECTS CAN INCLUDE, BUT NOT LIMITED TO, HEADACHE, CHEST. PAIN, PALPITATIONS, AND ORAL THRUSH (YEAST INFECTION). PER OUR CONVERSATION, IT IS RECOMMENDED THAT YOU RINSE YOUR MOUTH AFTER EACH USE TO PREVENT POTENTIAL ORAL THRUSH DUE TO THE USE OF THIS MEDICATION. FOLLOW UP WITH YOUR DOCTOR WITH ANY QUESTIONS OR CONCERNS REGARDING THIS MEDICATION. What we talked about: What I should do: In order to achieve an A1C goal less than 7 percent, the following glucose goals are conventionallyproposed, but slightly higher levels may suffice ?Fasting glucose 80 to 130 mg/dL ?Postprandial glucose (90 to 120 minutes after a meal) less than 180 mg/dL ALTERNATE YOUR TESTING TIMES THROUGHOUT THE WEEK TO HELP YOUR DOCTOR MANAGE YOUR DIABETES. TESTING AT DIFFERENT TIMES WILL HELP TO TARGET WHAT MEDICATIONS SHOULD BE ADJUSTED TO HELP MAINTAIN OR DECREASE YOUR HEMOGLOBIN A1C.TESTING IN THE MORNING BEFORE MEALS AND AT LEAST 2 HOURS AFTER A MEAL IS IDEAL What we talked about: What I should do: Keeping a headache diary may help your neurologist understand your headaches better. Currently, youare taking medications for headache prevention, and have no medication for acute treatment of your headache. Per our conversation, you told me that your medications are not working. Keep a headache diary and take this to your next neurology appointment. The diary should include the following: Date Time (start/finish) Intensity (1-10 pain scale, 1-least painful, 10 most painful) Preceding Symptoms(tastes, smells, hearing changes, etc) Triggers Medications Used Relief What we talked about: What I should do: Atorvastatin WORKS BY LOWERING TOTAL CHOLESTEROL. THIS MEDICATION WORKS BEST AT NIGHT DUE TO OUR BODIES PRODUCING CHOLESTEROL DURING THAT TIME. SOME SIDE EFFECTS INCLUDE, MUSCLE WEAKNESS, MUSCLE PAIN, AND JOINT PAIN. SOME SERIOUS SIDE EFFECTS CAN INCLUDE DARKENING OF THE URINE, WHICH IS ASSOCIATED WITH A CONDITION KNOWN RHABDOMYOLYSIS. THIS CONDITION INCLUDES ENHANCED MUSCLE BREAKDOWN, WHICH AFFECTS THE KIDNEYS. TAKE THIS MEDICATION IN THE EVENING OR AT BEDTIME What we talked about: What I should do: Oxycodone/ APAP IS USED TO TREAT PAIN. DO NOT EXCEED THE AMOUNT PRESCRIBED IF THIS MEDICATION STARTTO FEEL LIKE IT NO LONGER IS PROVIDING PAIN RELIEF. SPEAK TO YOUR DOCTOR IN REGARDS TO ANY CHANGES IN THE USE OF THIS MEDICATION. TAKING TOO MUCH OF THIS MEDICATION CAN LEAD TO DEPENDENCY AND/OR ACCIDENTAL OVERDOSE. This medication may cause side effects like trouble breathing. Reminders for safe storage and disposal Share tips for keeping opioid medications safely stored: Store out of plain sight Keep out of the reach of children and pets Consider a lock box Dispose of unused medication properly Take unused medication to the local police station or disposal site; check [place].gov for a site near you. Reference disposal instructions at fda.gov What we talked about: What I should do: PER OUR CONVERSATION AND THE CURRENT CDC RECOMMENDATIONS AND GUIDELINES YOU MAY NEED THE FOLLOWING VACCINATIONS: RSV: 1 DOSE THESE VACCINES CAN BE OBTAINED AT YOUR LOCAL PHARMACY FOR ZERO COPAY. * MTM Personal Medication List - Cornell Waldrop RPh - 06/09/2023 11:10 AM EST Medication How I take it Why I use it Prescriber Albuterol Sulfate HFA 108 (90 Base) MCG/ACT Inhalation Aerosol Solution TAKE 2 PUFFS BY MOUTH EVERY4 HOURS NEEDED COPD Cordell Yi MD Atorvastatin Calcium 20 MG Oral Tablet (Lipitor) Take 1 Tablet by mouth daily. HIGH CHOLESTEROL Cordell Yi MD Baclofen 10 mg Oral Tablet (Lioresal) Take 1 tablet by mouth twice daily Muscle Relaxer Cordell Yi MD Fluticasone Propionate 50 MCG/ACT Nasal Suspension (Flonase) Administer 2 Sprays into each nostril in the morning. NASAL ALLERGIES Jerod Cowan, Levocetirizine Dihydrochloride 5 MG Oral Tablet (Xyzal Allergy 24HR) Take 1 Tablet by mouth every evening. ALLERGIES Monalisa Soto, SENIOR TRAINING AND DEVELOPMENT REP Losartan Potassium 25 MG Oral Tablet (Cozaar) Take 1 Tablet by mouth daily. HIGH BLOOD PRESSURE Cordell Yi MD Lubiprostone 24 MCG Oral Capsule (Amitiza) Take 1 Capsule by mouth in the morning and 1 Capsule by mouth before bedtime with food Constipation Cordell Yi MD Magnesium Oxide 400 MG Oral Tablet Take 1 Tablet by mouth in the morning. Headache Prevention Obdulio Worthy MD metFORMIN HCl 500 MG Oral Tablet (Glucophage) Take 1 tablet by mouth twice daily with meals Diabetes Cordell Yi MD Montelukast Sodium 10 MG Oral Tablet (Singulair) Take 1 Tablet by mouth in the morning. Allergies Aditya Munguia MD Nortriptyline HCl 50 MG Oral Capsule (Pamelor) Take 1 Capsule by mouth at bedtime. Headache Prevention Cordell Yi MD Omeprazole 20 MG Oral Capsule Delayed Release (PriLOSEC) TAKE 1 CAPSULE BY MOUTH IN THE MORNING 1 HOUR BEFORE THE FIRST MEAL OF THE DAY Acid Reflux Cordell Yi MD Ondansetron HCl 4 MG Oral Tablet Take 1 Tablet by mouth every 6 hours as needed Nausea Cordell Yi MD oxyCODONE-Acetaminophen 5-325 MG Oral Tablet (Percocet) Take 1 Tablet by mouth every 6 hours as needed for Pain, Moderate. Pain Cordell Yi MD Polyethylene Glycol 3350 17 GM/SCOOP Oral Powder (MiraLax) Dissolve 17 Grams in 8 ounces of water or juice and drink once daily Constipation MAREN Mcgowan Trelegy Ellipta 200-62.5-25 MCG/ACT Aerosol Powder Breath Activated (Wozxeparnlh-Poubmzzyncbc-Mxuyxvxxzg) Inhale 1 Puff by mouth in the morning. COPD MAREN Mcgowan Vitamin B-2 100 MG Oral Tablet (Riboflavin) Take 4 Tablets by mouth in the morning. Headache Prevention Obdulio Worthy MD documented in this encounter Plan of Treatment Upcoming Encounters Date Type Department Care Team (Late st Contact Info) Description 06/17/2023 3:40 PM EST Office Visit [facility] [address] [facility] [place] [address] Monalisa Soto CRNP [address] [facility] [place] [id number] 06/30/2023 4:40 PM EST Office Visit [facility] [address] [facility] [place] [phone] [facility]i MD [facility] [id number] 07/06/2023 10:00 AM EDT Office Visit Neurology [facility] [address] [facility] [place] [address] Obdulio Worthy MD [address] [facility] [place] [phone] 08/24/2023 11:00 AM EDT Nurse Only Ancillary [facility] [address] [facility] [place] [id number] Rafa, Nurse Annual Wellness [facility] [address] [facility] [place] [id number] Scheduled Procedures Name Priority Associated Diagnoses Date/Ti me COLONOSCOPY FLEXIBLE PROXIMAL DIAGNOSTIC Recall History of colon polyps Health Maintenance Due Date Last Done Comments Hepatitis B (2 of 3 - Risk 3-dose series) 04/01/2001 03/04/2001 COVID-19 Vaccine (3 - 2022- season) 2022 06/25/2020, 05/28/2020 Depression Screening 08/21/2023 08/20/2022 Diabetic Foot Exam 08/21/2023 08/20/2022, 1 06/05/2020, 06/25/2020, Additional history exists HbA1c 08/25/2023 02/23/2023, 05/0 06/2022, 05/28/2022, Additional history exists Albumin/Creatinine Ratio 08/28/2023 023, 04/04/2021, 07/14/2018, Additional history exists Diabetic Eye Exam 10/23/2023 10/22/2022, , 10/22/2022, Additional history exists B-12 02/24/2024 02/23/2023, 11/25, 09/10/2020, Additional history exists GFR 02/24/2024 02/23/2023, 12/27, 02/17/2022, Additional history exists O2 ASSESSMENT COMPLETED IN PAST YEAR FOR COPD 06/08/2024 06/08/2023 COLONOSCOPY-EVERY 3 YRS AGES 18-100 05/09/2025 05/09/2022, 05/09/2022, 03/07/2019, Additional history exists DTaP,Tdap,and Td Vaccines (3 - Td or Tdap) 05/24/2028 05/24/2018, 10/23/2008 Pneumococcal Vaccine: 65+ Years Completed 01/27/2019, 03/21/2014 Zoster Vaccines Completed 11/07/2019, 06/16/2019 LUNG CANCER SCREENING - USE SMARTSET [id number] Completed 03/19/2021, 06/19/2020, 05/03/2019, Additional history exists Alpha-1 Antitrypsin Completed 02/23/2023 Influenza Vaccine (FLU shot) Completed 05/01/2023, 01/24/2019, 05/06/2018, Additional history exists DXA Scan Discontinued GARDASIL-HPV IMMUNIZATION SERIES Aged Out No longer eligible based on patient's age to complete this topic MENINGOCOCCAL (MENACTRA/MENVEO) Aged Out No longer eligible based on patient's age to complete this topic documented as of this encounter Medical Devices Not on filedocumented as of this encounter Visit Diagnoses Diagnosis Medication management- Primary Encounter for long-term (current) use of other medications documented in this encounter Advance Directives Documents on File Type Date Recorded Patient Relay Dispatcher Expl anation Advance Directives and Living Will 10/05/2021 ADVANCE DIRECTIVE / LIVING WILL Power of Loft Worker Apprentice 10/05/2021 POWER OF A TTORNEY Care Teams Airfield Engineer Officer Relationship Specialty Start Date End Date Cordell Yi MD [address] [place] [id number] PCP - General Family Medicine 06/23/20 documented as of this encounter
--- OUTSIDE RECORDS SUMMARY | 2023-06-13 07:09 | External Medical Summary | Summary of Care ---
Author Name Unknown Organization [facility] Address [address] [facility] [place] [address] Phone [phone] Care Team Providers Care Tooling Engineering Tech Name Role Phone Cordell Yi MD Primary Care Provider [phone] Reason for Referral * Medication Prior Authorization - Pending Review Specialty Diagnoses / Procedures Referred By Arti t Referred To Contact Monalisa Soto CRNP [address] [place] [address] Referral ID Status Reason Start Date Expiration Date V isits Requested Visits Authorized [id number] Pending Review 999 999 Reason for Visit * Reason Comments Acute Patient presents in office today for concerns with bowel issues and ZAFAR (feels like she always feels like she has one 17/11) Encounter Details Date Type Department Care Team (Latest Contact Info) Description 05/27/2023 8:40 AM EST Office Visit Family Practice [facility] [address] [place] [address] Monalisa Soto CRNP [address] [place] [address] Irritable bowel syndrome with constipation*; COPD, group B, by GOLD 2017 classification ([facility]); HTN, goal below 130/80; Nocturnal hypoxemia; Recurrent headache; DDD (degenerative disc disease), cervical; Type 2 diabetes mellitus with diabetic peripheral angiopathy without gangrene, without long-term current use of insulin ([facility]); Dyslipidemia Allergies Active Allergy Reactions Criticality Noted Date Comments Amoxicillin-Pot Clavulanate Nausea/vomiting 01/2020 Bactrim Nausea/vomiting Medium 01/28/2010 Clarithromycin Nausea/vomiting 09/15/2007 documented as of this encounter (statuses as of 05/27/2023) Medications Medication Sig Dispensed Refills Start Date End Date Status oxygen GAS Use 3 L/min(Oxygen) as directed at bedtime. During all periods of sleep. 1 Each 0 5 Active Additional Information Patient not taking.Informant: Patient, Reported on 05/27/2023 Triamcinolone Acetonide 0.5 % External Cream Apply [...] g 1 1 Active Additional Information Patient taking differently:2 g Topical BID (.AM/PM),Apply the effected are of the neck as needed, Informant: Patient, Reported on 04/04/2022 Vitamin D3 25 MCG (1000 UT) Oral Capsule Take 2 Capsules by mouth in the morning. Taking 2000 iu capsule. 0 Active OneTouch Verio w/Device KitIndications:Type 2 diabetes mellitus with hemoglobin A1c goal of less than 8.0% ([facility]) Use up to 4 times a day as needed E11.9 1 Kit 0 2 Active OneTouch Delica Plus [id number] CHECK BLOOD SUGAR UP TO 4 TIMES [...] hemoglobin A1c goal of less than 8.0% ([facility]) USE UP TO 4 TIMES A DAY [...] every evening. 90 Tablet 3 3 Active Trelegy Ellipta 200-62.5-25 MCG/ACT Aerosol Powder Breath Activated (Fluticasone-Umeclid inium-Vilanterol) Inhale 1 Puff by mouth in the morning. 180 Blister Dosing Unit 1 3 Active Losartan Potassium 25 MG Oral Tablet (Cozaar)Indications: Essential (primary) hypertension Take 1 Tablet by mouth daily. 90 Tablet 1 3 Active Baclofen 10 MG Oral Tablet (Lioresal) Take 1 Tablet by mouth in the morning and 1 Tablet before bedtime. 180 Tablet 0 3 06/01/19 24 Active Nortriptyline HCl 50 MG Oral Capsule (Pamelor) Take 1 Capsule by mouth at bedtime. 90 Capsule 3 3 Active Albuterol Sulfate HFA 108 (90 Base) MCG/ACT Inhalation Aerosol SolutionIndications: COPD, group B, by GOLD 2017 classification ([facility]) TAKE 2 PUFFS BY MOUTH EVERY 4 [...] or juice.. 714 g 1 4 Active predniSONE 20 MG Oral Tablet (Deltasone) Take 4 tablets by mouth daily for 2 days, 3 tabs daily for 2 days, 2 tabs daily for 2 days, 1 tab daily for 2 days 20 Tablet 0 3 05/27/19 24 Discontinu ed(Medicat ion List Clean Up) documented as of this encounter (statuses as of 05/27/2023) Active Problems Problem Noted Date Diagnosed Date [...] as of this encounter (statuses as of 05/27/2023) Resolved Problems Problem Noted Date Diagnosed Date [...] as of this encounter (statuses as of 05/27/2023) Immunizations Name Administration Dates Next Due COVID-19 mRNA, LNP-s, No Pre serve, 2-Dose Series ([facility]) 06/25/2020,05/28/2020 Pneumococcal Conjugate Vacc, 13 Valent (Prevnar) [...] on file documented as of this encounter Last Filed Vital Signs Vital Sign Reading Time Taken Comments Blood Pressure 132/60 05/27/2023 8:48 AM EST Pulse 88 05/27/2023 8:48 AM EST Temperature - - Respiratory Rate 18 05/27/2023 8:48 AM EST Oxygen Saturation 98% 05/27/2023 8:48 AM EST Inhaled Oxygen Concentration - - Weight 76.2 kg (168 lb) 05/27/2023 8:48 AM EST Height 162.6 cm (5' 4") 05/27/2023 8:48 AM EST Body Mass Index 28.84 05/27/2023 8:48 AM EST documented in this encounter Progress Notes * Monalisa Soto AllyMAREN - 05/27/2023 8:58 AM EST Follow up Family Medicine Visit CC: Chief Complaint Patient presents with Acute Patient presents in office today for concerns with bowel issues and ZAFAR (feels like she always feelslike she has one 17/11) History of Present Illness: Jsamin Watters is a 77 year old female presenting today for complaints of increased constipation.Feels this is caused by the oxycodone. She did have bloating, nausea and felt full. Took milk of mag with improvement. She also held the oxycodone for 4-5 days. Denies severe abdominal pain. Denies fever. Social History Socioeconomic History Marital status: Spouse name: Not on file Number of children: 2 Years of education: Not on file Highest education level: Not on file Occupational History Not on file Tobacco Use Smoking status: Former Packs/day: 1.00 Years: 30.00 Additional pack years: 0.00 Total pack years: 30.00 Types: Cigarettes Quit date: 2016 Years since quittin.0 Smokeless tobacco: Never Vaping Use Vaping Use: Never used Substance and Sexual Activity Alcohol use: No Drug use: No Sexual activity: Never Other Topics Concern Not on file Social History Narrative [employer] [place] INFORMATION ENVIRONMENTAL HISTORY: Type of Home: Two Story Type of Heating System: Electric Air Conditioning: Yes Patient's bedroom and Kitchen Basement: Finished, Carpeted rooms, Dampness and Mold, mildew Home have cockroaches: No Irritants in the home: None Patient's bedroom location: Floor: first Type of shandra: Area Rugs and Hardwood Beds: Number: 1 Type of beds: Mattress Pillows: Number: 1 Type of pillows: Foam Bedroom contains: Bookshelves/Books Pets: 1 dog(s) Lives [place] a farm: No 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 Entered by: Rashid Callaway MD 02/07/2010 Social Determinants of Health Financial Resource Strain: Not on file Food Insecurity: No Food Insecurity (08/20/2022) Hunger Vital Sign Worried About Running Out of Food in the Last Year: Never true Ran Out of Food in the Last Year: Never true Transportation Needs: Not on file Physical Activity: Not on file Stress: Not on file Social Connections: Not on file Intimate Partner Violence: Not on file Housing Stability: Not on file PMH: Past Medical History: Diagnosis Date Asthma, severity to be determined 1995 Asthma w/o status Benign neoplasm of colon 10/19/07 hyperplastic polyps--repeat 1-2 years Cervical myofascial pain syndrome 07/17/2021 Dyslipidemia 02/21/2022 Gastroesophageal reflux disease without esophagitis 06/25/2020 HTN, goal below 130/80 11/16/2014 Overweight (BMI 25.0-29.9) 05/26/2022 Tobacco use disorder Type 2 diabetes mellitus with hemoglobin A1c goal of less than 8.0% ([facility]) 08/03/2014 ICD-10 update of inactive term Vitamin D insufficiency 12/04/2022 Takes supplemental d3 Past Surgical History: Procedure Laterality Date DELIVERY 1979 and 1981 X 2 COLONOSCOPY W/ BLEEDING CONTROL hyperplastic polyps--repeat 1-2 years COLONOSCOPY, DIAGNOSTIC (RECTUM) 03/07/2019 hyperplastic polyp, diverticulosis, fair prep, repeat 3 yrs / [facility] COLONOSCOPY, DIAGNOSTIC (RECTUM) N/A 05/09/2022 [facility], colonoscopy, prep-fair , moderate diverticulosis in sigmoid colon & descending, internal hemorrhoids / no specimens collected / 3 year recall / CYSTOSCOPY 02/22/2008 EGD, FLEXIBLE, DIAGNOSTIC 07/02/2021 esophagitis, hiatal hernia / ESOPHAGOGASTRODUODENOSCOPY (EGD), FLEXIBLE, TRANSORAL, DIAGNOSTIC performed by Mary Avendaño MD at ENDOSCOPY [facility] FACE/SCALP SUBQ TUMOR REMOVAL, UNDER 2 CM Left 10/26/2017 10/26/2017 EXCISION FACE/SCALP SUBQ TUMOR, UNDER 2 CM performed by Gaurav Rodriguez MD at OR [facility] dx benign epidermoid cyst , ruptured and nflamed LAPAROSCOPY; CHOLECYSTECTOMY 10/17/2019 OTHER 1979 removed rib PROCEDURE - GENERAL Right 07/19/2021 excison of lesion on left side of neck REMOVAL OF TONSILS, AGE 12+ age 21 Tonsils Removal,12+ Y/O SURGICAL PROCEDURE ONLY Right 06/20/2022 Excision Right neck a cyst by DR. Rodriguez Outpatient Medications Marked as Taking for the 05/27/23 encounter (Office Visit) with Monalisa Soto CRNP Medication Sig Omeprazole 20 MG Oral Capsule Delayed Release (PriLOSEC) TAKE 1 CAPSULE BY MOUTH IN THE MORNING 1 HOUR BEFORE THE FIRST MEAL OF THE DAY oxyCODONE-Acetaminophen 5-325 MG Oral Tablet (Percocet) Take 1 Tablet by mouth every 6 hours as needed for Pain, Moderate. Magnesium Oxide 400 MG Oral Tablet Take 1 Tablet by mouth in the morning. Vitamin B-2 100 MG Oral Tablet (Riboflavin) Take 4 Tablets by mouth in the morning. Atorvastatin Calcium 20 MG Oral Tablet (Lipitor) Take 1 Tablet by mouth daily. metFORMIN HCl 500 MG Oral Tablet (Glucophage) Take 1 tablet by mouth twice daily with meals Albuterol Sulfate HFA 108 (90 Base) MCG/ACT Inhalation Aerosol Solution TAKE 2 PUFFS BY MOUTH EVERY4 HOURS NEEDED FOR WHEEZE Nortriptyline HCl 50 MG Oral Capsule (Pamelor) Take 1 Capsule by mouth at bedtime. Baclofen 10 MG Oral Tablet (Lioresal) Take 1 Tablet by mouth in the morning and 1 Tablet before bedtime. Losartan Potassium 25 MG Oral Tablet (Cozaar) Take 1 Tablet by mouth daily. Trelegy Ellipta 200-62.5-25 MCG/ACT Aerosol Powder Breath Activated (Xsecuvytczc-Tokweqpezdqx-Hjvweeetde) Inhale 1 Puff by mouth in the morning. Levocetirizine Dihydrochloride 5 MG Oral Tablet (Xyzal Allergy 24HR) Take 1 Tablet by mouth every evening. Montelukast Sodium 10 MG Oral Tablet (Singulair) Take 1 Tablet by mouth in the morning. Lubiprostone 24 MCG Oral Capsule (Amitiza) Take 1 Capsule by mouth in the morning and 1 Capsule before bedtime. with food.. [employer] In Vitro Strip (Glucose Blood) USE UP TO 4 TIMES A DAY Ondansetron HCl 4 MG Oral Tablet Take 1 Tablet by mouth every 6 hours as needed for Nausea. Fluticasone Propionate 50 MCG/ACT Nasal Suspension (Flonase) Administer 2 Sprays into each nostril in the morning. VitaPortal Plus [id number] CHECK BLOOD SUGAR UP TO 4 TIMES DAILY E11.9 [employer] Verio w/Device Kit Use up to 4 times a day as needed E11.9 Diclofenac Sodium 1 % External Gel (Voltaren) Apply 2 g topically to affected area 2 times a day. Apply the effected are of the neck (Patient taking differently: Apply 2 g topically to affected area in the morning and 2 g before bedtime. Apply the effected are of the neck as needed.) Triamcinolone Acetonide 0.5 % External Cream Apply topically to affected area 2 times a day. To affected area (eczema). (Patient taking differently: Apply topically to affected area 2 times a day. Toaffected area (eczema). As needed) Review of patient's allergies indicates: Allergen Reactions Bactrim Nausea/vomiting Augmentin [Amoxicillin-Pot Clavulanate] Nausea/vomiting Clarithromycin Nausea/vomiting Most Recent Immunizations Administered Date(s) Administered COVID-19 mRNA, LNP-s, No Preserve, 2-Dose Series ([facility]) 06/25/2020 Hepatitis B, 20+ yrs 03/04/2001 Pneumococcal Conjugate Vacc, 13 Valent (Prevnar) 01/27/2019 Pneumococcal Polysaccharide PPV23 (Pneumovax) 03/21/2014 Seasonal Influenza, Quadrivalent Hd (Fluzone Hd) 05/01/2023 Seasonal Influenza, Quadrivalent, No Preserve, IM 05/14/2016 Seasonal Influenza, Split, IIV3, With Preserve, Inj 04/12/2014 Seasonal Influenza, Trivalent, High Dose, No Preserve, IM 01/24/2019 TDAP (age 10 and older)(Boostrix) 05/24/2018 TDAP (age 11 and older)(Adacel) 10/23/2008 Varicella Vaccine (Chicken Pox) 03/04/2001 Zoster Vaccine Recombinant (Shingrix) 11/07/2019 Review of Systems: Review of Systems Constitutional: Negative for fatigue and fever. Respiratory: Positive for shortness of breath and wheezing. At baseline Cardiovascular: Negative for chest pain. Gastrointestinal: Positive for abdominal distention, abdominal pain and constipation. Negative for diarrhea, nausea and vomiting. Neurological: Positive for headaches. Physical Exam: BP 132/60 | Pulse 88 | Resp 18 | Ht 1.626 m (5' 4") | Wt 76.2 kg (168 lb) | SpO2 98% | BMI 28.84 kg/m | BSA 1.86 m Physical Exam HENT: Head: Normocephalic. Cardiovascular: Rate and Rhythm: Normal rate. Pulmonary: Effort: Pulmonary effort is normal. Breath sounds: Decreased breath sounds present. Abdominal: General: Bowel sounds are decreased. Palpations: Abdomen is soft. Tenderness: There is no abdominal tenderness. Neurological: General: No focal deficit present. Mental Status: She is alert and oriented to person, place, and time. Psychiatric: Mood and Affect: Mood normal. Behavior: Behavior normal. Thought Content: Thought content normal. Judgment: Judgment normal. Assessment and Plan: 1. Irritable bowel syndrome with constipation ACUTE WORSENING WITH USE OF OXYCODONE CONTINUE AMITIZA ADD MIRALAX DAILY Try to limit oxycodone use 2. COPD, group B, by GOLD 2017 classification (HCC) stable 3. HTN, goal below 130/80 stable 4. Nocturnal hypoxemia Restart oxygen 5. Recurrent headache ONGOING HEADACHES ? TENSION CONSIDER CHANGE TO DULOXETINE AND STOP NORTRIPTYLINE SHE WILL DECIDE AND LET ME KNOW 6. DDD (degenerative disc disease), cervical I have advised the patient to call our office incase of any worsening or new symptoms. I spent a total of 40-54 minutes (exact time 40 mins) on the date of service in preparation, delivery, and documentation of the care provided to Jasmin Watters excluding any time spent in the performance of separately billed services. Nat, RAISA, MAREN [facility] Medicine documented in this encounter Nursing Notes * Fabiola Oneil MED ASSIST - 05/27/2023 8:45 AM EST The patient has been properly identified by confirmation of name and date of . Chief Complaint Patient presents with Acute Patient presents in office today for concerns with bowel issues and ZAFAR (feels like she always feelslike she has one 17/11) documented in this encounter Plan of Treatment Upcoming Encounters Date Type Department Care Team (Late st Contact Info) Description 06/10/2023 1:40 PM EST Office Visit Family Practice [address] [place] [address] Monalisa Soto CRNP [address] [place] [address] 07/06/2023 10:00 AM EDT Office Visit Neurology [facility] [address] [facility] [place] [address] Obdulio Worthy MD [address] [facility] [place] [address] 07/21/2023 4:40 PM EDT Office Visit Family Practice [facility] [address] [place] [address] Cordell Yi MD [address] [facility] [place] [address] 08/24/2023 11:00 AM EDT Nurse Only Ancillary [facility] [address] [facility] [address] [facility], Nurse Annual Wellness [facility] [address] [facility] [place] [address] Scheduled Procedures Name Priority Associated Diagnoses Date/Ti me COLONOSCOPY FLEXIBLE PROXIMAL DIAGNOSTIC Recall History of colon polyps Health Maintenance Due Date Last Done Comments Hepatitis B (2 of 3 - Risk 3-dose series) 04/01/2001 03/04/2001 COVID-19 Vaccine ( season) 2022 06/25/2020, 05/28/2020 Depression Screening 08/21/2023 [...] ASSESSMENT COMPLETED IN PAST YEAR FOR COPD 05/27/2024 05/27/2023 COLONOSCOPY-EVERY 3 YRS AGES 18-100 05/09/2025 05/09/2022, 05/09/2022, 03/07/2019, Additional history exists DTaP,Tdap,and Td Vaccines (3 - Td or Tdap) 05/24/2028 05/24/2018, 10/23/2008 Pneumococcal Vaccine: 65+ Years Completed 01/27/2019, 03/21/2014 Zoster Vaccines Completed 11/07/2019, 06/16/2019 LUNG CANCER SCREENING - USE SMARTSET [id number] Completed 03/19/2021, 06/19/2020, 05/03/2019, Additional history exists [...] as of this encounter Visit Diagnoses Diagnosis Irritable bowel syndrome with constipation- Primary Irritable bowel syndrome COPD, group B, by GOLD 2017 classification (HCC) HTN, goal below 130/80 Unspecified essential hypertension Nocturnal hypoxemia Hypoxemia Recurrent headache Headache DDD (degenerative disc disease), cervical Degeneration of cervical intervertebral disc Type 2 diabetes mellitus with diabetic peripheral angiopathy without gangrene, without long-term current use of insulin (HCC) Dyslipidemia Other and unspecified hyperlipidemia documented in this encounter Advance Directives Documents on File Type Date Recorded Patient Campus Dean Expl anation Advance Directives and Living Will 10/05/2021 ADVANCE DIRECTIVE / LIVING WILL Power of Human Resources Trainer 10/05/2021 POWER OF A TTORNEY Care Teams Tooling Engineering Tech Relationship Specialty Start Date End Date Cordell Yi MD [address] [place] [address] PCP - General Family Medicine 06/23/20 documented as of this encounter
--- OUTSIDE RECORDS SUMMARY | 2023-06-13 07:09 | External Medical Summary | Summary of Care ---
Author Name Unknown Organization [facility] Address [address] [facility] [place] [address] Phone [phone] Care Team Providers Care Glove Brusher Name Role Phone Cordell Yi MD Primary Care Provider [phone] Reason for Visit * Reason Comments Medication Refill Encounter Details Date Type Department Care Team (Late st Contact Info) Description 06/08/2023 Refill Family Practice [facility] [address] [place] [address] Monalisa Soto CRNP [address] [place] [address] Allergies Active Allergy Reactions Criticality Noted Date Comments Amoxicillin-Pot Clavulanate Nausea/vomiting 01/2020 Bactrim Nausea/vomiting Medium 01/28/2010 Clarithromycin Nausea/vomiting 09/15/2007 documented as of this encounter (statuses as of 06/09/2023) Medications Medication Sig Dispensed Refills Start Date End Date Status oxygen GAS Use 3 L/min(Oxygen) as directed at bedtime. During all periods of sleep. 1 Each 0 04/10/2015 Active Triamcinolone Acetonide 0.5 % External Cream Apply topically to affected area 2 times a day. To affected area (eczema). 60 g 5 02/28/2021 Active Additional Information Patient taking differently:Topical BID (.AM/PM),To affected area (eczema). As needed, Informant: Patient, Reported on 12/22/2022 Diclofenac Sodium 1 % External Gel (Voltaren)Indications :Other osteoarthritis of spine, cervical region Apply 2 g topically to affected area 2 times a day. Apply the effected are of the neck 350 g 1 04/04/2021 Active Additional Information Patient not taking.Informant: Patient, Reported on 06/09/2023 OneTouch Verio w/Device KitIndications:Type 2 diabetes mellitus with hemoglobin A1c goal of less than 8.0% ([facility]) Use up to 4 times a day as needed E11.9 1 Kit 0 07/17/2021 Active OneTouch Delica Plus [id number] CHECK BLOOD SUGAR UP TO 4 TIMES DAILY E11.9 200 Each 1 05/30/2022 Active Fluticasone Propionate 50 MCG/ACT Nasal Suspension (Flonase) Administer 2 Sprays into each nostril in the morning. 16 g 5 08/20/2022 Active Ondansetron HCl 4 MG Oral Tablet Take 1 Tablet by mouth every 6 hours as needed for Nausea. 30 Tablet 0 09/30/2022 Active OneTouch Verio In Vitro Strip (Glucose Blood)Indications:Typ e 2 diabetes mellitus with hemoglobin A1c goal of less than 8.0% ([facility]) USE UP TO 4 TIMES A DAY 400 Strip 0 11/04/2022 Active Lubiprostone 24 MCG Oral Capsule (Amitiza) Take 1 Capsule by mouth in the morning and 1 Capsule before bedtime. with food.. 180 Capsule 3 11/11/2022 Active Montelukast Sodium 10 MG Oral Tablet (Singulair) Take 1 Tablet by mouth in the morning. 90 Tablet 3 01/14/2023 Active Levocetirizine Dihydrochloride 5 MG Oral Tablet (Xyzal Allergy 24HR) Take 1 Tablet by mouth every evening. 90 Tablet 3 01/22/2023 Active Losartan Potassium 25 MG Oral Tablet (Cozaar)Indications:E ssential (primary) hypertension Take 1 Tablet by mouth daily. 90 Tablet 1 01/28/2023 Active Nortriptyline HCl 50 MG Oral Capsule (Pamelor) Take 1 Capsule by mouth at bedtime. 90 Capsule 3 03/10/2023 Active Albuterol Sulfate HFA 108 (90 Base) MCG/ACT Inhalation Aerosol SolutionIndications:C OPD, group B, by GOLD 2017 classification ([facility]) TAKE 2 PUFFS BY MOUTH EVERY 4 HOURS NEEDED FOR WHEEZE 18 g 2 03/23/2023 Active metFORMIN HCl 500 MG Oral Tablet (Glucophage) Take 1 tablet by mouth twice daily with meals 180 Tablet 1 04/03/2023 Active Atorvastatin Calcium 20 MG Oral Tablet (Lipitor) Take 1 Tablet by mouth daily. 90 Tablet 1 04/03/2023 Active Magnesium Oxide 400 MG Oral Tablet Take 1 Tablet by mouth in the morning. 30 Tablet 11 04/06/2023 Active Vitamin B-2 100 MG Oral Tablet (Riboflavin) Take 4 Tablets by mouth in the morning. 120 Tablet 11 04/06/2023 Active oxyCODONE-Acetaminoph en 5-325 MG Oral Tablet (Percocet)Indications :Cervical spinal stenosis Take 1 Tablet by mouth every 6 hours as needed for Pain, Moderate. 30 Tablet 0 04/08/2023 Active Omeprazole 20 MG Oral Capsule Delayed Release (PriLOSEC)Indications :Gastroesophageal reflux disease without esophagitis TAKE 1 CAPSULE BY MOUTH IN THE MORNING 1 HOUR BEFORE THE FIRST MEAL OF THE DAY 90 Capsule 1 05/20/2023 Active Polyethylene Glycol 3350 17 GM/SCOOP Oral Powder (MiraLax) Take 17 g by mouth in the morning. Dissolve one heaping tablespoon in 8 ounces of water or juice.. 714 g 1 05/27/2023 Active documented as of this encounter (statuses as [...] on file documented as of this encounter Miscellaneous Notes * Telephone Encounter - Cordell Yi MD - 06/09/2023 11:31 AM ESTNo prescriptions requested or ordered in this encounter documented in this encounter Plan of Treatment Upcoming Encounters Date Type Department Care Team (Late st Contact Info) Description 06/17/2023 3:40 PM EST Office Visit [facility] [address] [place] [address] Monalisa Soto CRNP [address] [place] [address] 06/30/2023 4:40 PM EST Office Visit [facility] [address] [place] [address] Cordell Yi MD [address] [place] [address] 07/06/2023 10:00 AM EDT Office Visit [facility] [address] [facility] [place] [address] Obdulio W[facility] [address] [facility] [address] 08/24/2023 11:00 AM EDT Nurse Only Ancillary [facility] [address] [facility] [place] [address] [facility], Nurse Annual Wellness [facility] [address] [facility] [place] [address] Scheduled Procedures Name Priority Associated Diagnoses Date/Ti [...] 06/16/2019 LUNG CANCER SCREENING - USE SMARTSET [id number] Completed 03/19/2021, 06/19/2020, 05/03/2019, Additional history exists [...] Not on filedocumented as of this encounter Advance Directives Documents on File Type Date Recorded Patient Corrosion Technician Expl anation Advance Directives and Living Will 10/05/2021 ADVANCE DIRECTIVE / LIVING WILL Power of Concrete Paving Supervisor 10/05/2021 POWER OF A TTORNEY Care Teams Glove Brusher Relationship Specialty Start Date End Date Cordell Yi MD [address] [place] [address] PCP - General Family Medicine 06/23/20 documented as of this encounter
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
--- OUTSIDE RECORDS SUMMARY | 2023-06-13 07:09 | External Medical Summary | Summary of Care ---
Author Name Unknown Organization [facility] Address [address] [facility] [place] [address] Phone [phone] Care Team Providers Care Investigator Internal Affairs Name Role Phone Cordell Yi MD Primary Care Provider [phone] Encounter Details Date Type Department Care Team (Late st Contact Info) Description 05/07/2023 Population Health External Data Unspecified Department Allergies Active Allergy Reactions Criticality Noted Date Comments Amoxicillin-Pot Clavulanate Nausea/vomiting 01/2020 Bactrim Nausea/vomiting Medium 01/28/2010 Clarithromycin Nausea/vomiting 09/15/2007 documented as of this encounter (statuses as of 05/11/2023) Medications Medication Sig Dispensed Refills Start Date [...] Kit 0 07/17/2021 Active OneTouch Delica Plus [id number] CHECK BLOOD SUGAR UP TO 4 TIMES [...] OPD, group B, by GOLD 2017 classification ([facility]) TAKE 2 PUFFS BY MOUTH EVERY 4 [...] as of this encounter (statuses as of 05/11/2023) Active Problems Problem Noted Date Diagnosed Date [...] as of this encounter (statuses as of 05/11/2023) Resolved Problems Problem Noted Date Diagnosed Date [...] as of this encounter (statuses as of 05/11/2023) Immunizations Name Administration Dates Next Due COVID-19 mRNA, LNP-s, No Pre serve, 2-Dose Series (Pfizer) 06/25/2020,05/28/2020 Pneumococcal Conjugate Vacc, 13 Valent (Prevnar) 01/27/2019 Pneumococcal Polysaccharide PPV23 (Pneumovax) 03/21/2014 Seasonal Influenza, Quadriva lent Hd (Fluzone Hd) 05/01/2023 Seasonal Influenza, Quadriva lent, No Preserve, IM 05/14/2016,02/23/2015 Seasonal Influenza, Split, I IV3, With Preserve, Inj 04/12/2014,02/08/2013,02/21/2011,1105/2009,05/09/2008,03/01/2008 02/26/2011 Seasonal Influenza, Trivalen t, High Dose, [...] on file documented as of this encounter Plan of Treatment Upcoming Encounters Date Type Department Care Team (Late st Contact Info) Description 06/03/2023 9:20 AM EST Office Visit [facility] [address] [place] [address] Monalisa Soto CRNP [address] [place] [address] 07/06/2023 10:00 AM EDT Office Visit Neurology [facility] [address] [facility] [place] [address] Obdulio Worthy MD [address] [facility] [place] [address] 07/21/2023 4:40 PM EDT Office Visit [facility] [address] [place] [address] Cordell Yi MD [address] [place] [address] 08/24/2023 11:00 AM EDT Nurse Only Ancillary [facility] [address] [facility] [place] [address] [place], Nurse Annual Wellness [facility] [address] [facility] [place] [address] Scheduled Procedures Name Priority Associated Diagnoses Date/Ti [...] 06/16/2019 LUNG CANCER SCREENING - USE SMARTSET [id number] Completed 03/19/2021, 06/19/2020, 05/03/2019, Additional history exists [...] Documents on File Type Date Recorded 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
--- OUTSIDE RECORDS SUMMARY | 2023-06-13 07:09 | External Medical Summary | Summary of Care ---
Author Name Unknown Organization [facility] Address [address] [facility] [place] [address] Phone [phone] Care Team Providers Care Breast Buffer Name Role Phone Christine Grayson MD Primary Care Provider [phone] Reason for Visit * Reason Comments Medication Refill Encounter Details Date Type Department Care Team (Late st Contact Info) Description 05/20/2023 Refill Family Practice [facility] [address] [place] [address] Christine Grayson MD [address] [place] [address] Gastroesophageal reflux disease without esophagitis Allergies Active Allergy Reactions Criticality Noted Date Comments Amoxicillin-Pot Clavulanate Nausea/vomiting 01/2020 Bactrim Nausea/vomiting Medium 01/28/2010 Clarithromycin Nausea/vomiting 09/15/2007 documented as of this encounter (statuses as of 05/20/2023) Medications Medication Sig Dispensed Refills Start Date [...] hemoglobin A1c goal of less than 8.0% ([facility]) Use up to 4 times a day as needed E11.9 1 Kit 0 2 Active OneTouch Delica Plus [id number] CHECK BLOOD SUGAR UP TO 4 TIMES [...] COPD, group B, by GOLD 2017 classification ([facility]) TAKE 2 PUFFS BY MOUTH EVERY [...] the morning. 30 Tablet 11 3 Active Additional Information Patient not taking.Reported on 04/08/2023 Vitamin B-2 100 MG Oral Tablet (Riboflavin) Take 4 Tablets by mouth in the morning. 120 Tablet 11 3 Active Additional Information Patient not taking.Reported on 04/08/2023 oxyCODONE-Acetaminop hen 5-325 MG Oral Tablet (Percocet)Indication s:Cervical spinal stenosis Take 1 Tablet by mouth every 6 hours as needed for Pain, Moderate. 30 Tablet 0 3 Active predniSONE 20 MG Oral Tablet (Deltasone) Take 4 tablets by mouth daily for 2 days, 3 tabs daily for 2 days, 2 tabs daily for 2 days, 1 tab daily for 2 days 20 Tablet 0 3 Active Additional Information Patient not taking.Reported on 04/23/2023 Omeprazole 20 MG Oral Capsule Delayed Release (PriLOSEC)Indication s:Gastroesophageal reflux disease without esophagitis TAKE 1 CAPSULE BY MOUTH IN THE MORNING 1 HOUR BEFORE THE FIRST MEAL OF THE DAY 90 Capsule 1 4 Active Omeprazole 20 MG Oral Capsule Delayed Release (PriLOSEC)Indication s:Gastroesophageal reflux disease without esophagitis TAKE 1 CAPSULE BY MOUTH IN THE MORNING 1 HOUR BEFORE THE FIRST MEAL OF THE DAY 90 Capsule 1 3 05/20/19 24 Discontinu ed(Refill) documented as of this encounter (statuses as of 05/20/2023) Active Problems Problem Noted Date Diagnosed Date [...] as of this encounter (statuses as of 05/20/2023) Resolved Problems Problem Noted Date Diagnosed Date [...] as of this encounter (statuses as of 05/20/2023) Immunizations Name Administration Dates Next Due COVID-19 mRNA, LNP-s, No Pre serve, 2-Dose Series (Pfizer) 06/25/2020,05/28/2020 Pneumococcal Conjugate Vacc, 13 Valent (Prevnar) 01/27/2019 Pneumococcal Polysaccharide PPV23 (Pneumovax) 03/21/2014 Seasonal Influenza, Quadriva lent Hd (Fluzone Hd) 05/01/2023 Seasonal Influenza, Quadriva lent, No Preserve, IM 05/14/2016,02/23/2015 Seasonal Influenza, Split, I IV3, With Preserve, Inj 04/12/2014,02/08/2013,02/21/2011,11/05/2009,05/09/2008,03/01/2008 02/26/2011 Seasonal Influenza, Trivalen t, High Dose, [...] encounter Miscellaneous Notes * Telephone Encounter - Christine Grayson MD - 05/20/2023 10:00 AM ESTSigned Prescriptions: Disp Refills Omeprazole 20 MG Oral Capsule Delayed Rele*90 Cap*1 Sig: TAKE 1 CAPSULE BY MOUTH IN THE MORNING 1 HOUR BEFORE THE FIRST MEAL OF THE DAYAuthorizing Provider: CHRISTINE GRAYSON documented in this encounter Plan of Treatment Upcoming Encounters Date Type Department Care Team (Late st Contact Info) Description 06/10/2023 1:40 PM EST Office Visit Family Practice [facility] [address] [place] [address] Monalisa Soto CRNP [address] [place] [address] 07/06/2023 10:00 AM EDT Office Visit Neurology [facility] [place] [place] [address] [place] [address] Obdulio Worthy MD [address] [facility] [place] [address] 07/21/2023 4:40 PM EDT Office Visit Family Practice [facility] [address] [facility] [place] [address] Christine Grayson MD [address] [place] [address] 08/24/2023 11:00 AM EDT Nurse Only [facility]illary [facility] [place] [address] [facility], Nurse Annual Wellness [facility] 132 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
--- OUTSIDE RECORDS SUMMARY | 2023-06-13 07:09 | External Medical Summary | Summary of Care ---
Author Name Unknown Organization [facility] Address [address] [facility] [place] [address] Phone [phone] Care Team Providers Care Records Custodian Name Role Phone Cordell Yi MD Primary Care Provider [phone] [phone] Reason for Visit * Reason Comments Chest Discomfort Pt states she stayed somewhere other than home overnight and slept wrong on a pillow, states after she has some chest discomfort Encounter Details Date Type Department Care Team (Latest Contact Info) Description 06/08/2023 12:40 PM EST Office Visit Family Practice [facility] [address] [place] [address] Padmini Valles CRNP [address] [place] [address] Intercostal muscle pain*; COPD, group B, by GOLD 2017 classification (HCC); Cervical spinal stenosis; HTN, goal below 130/80 Allergies Active Allergy Reactions Criticality Noted Date Comments Amoxicillin-Pot Clavulanate Nausea/vomiting 01/2020 Bactrim Nausea/vomiting Medium 01/28/2010 Clarithromycin Nausea/vomiting 09/15/2007 documented as of this encounter (statuses as of 06/08/2023) Medications Medication Sig Dispensed Refills Start Date [...] 12/22/2022 Diclofenac Sodium 1 % External Gel (Voltaren)Indicatio ns:Other osteoarthritis of spine, cervical region Apply 2 g topically to affected area 2 times a day. Apply the effected are of the neck 350 g 1 1 Active Additional Information Patient taking differently:2 g Topical BID (.AM/PM),Apply the effected are of the neck as needed, Informant: Patient, Reported on 04/04/2022 OneTouch Verio w/Device KitIndications:Type 2 diabetes mellitus with hemoglobin A1c goal of less than 8.0% (HCC) Use up to 4 times a day as needed E11.9 1 Kit 0 2 Active OneTouch Delica Plus [id number] CHECK BLOOD SUGAR UP TO 4 TIMES [...] Active OneTouch Verio In Vitro Strip (Glucose Blood)Indications:T ype 2 diabetes mellitus with hemoglobin A1c goal [...] Ellipta 200-62.5-25 MCG/ACT Aerosol Powder Breath Activated (Fluticasone-Umecli dinium-Vilanterol) Inhale 1 Puff by mouth in the morning. 180 Blister Dosing Unit 1 3 Active Losartan Potassium 25 MG Oral Tablet (Cozaar)Indications :Essential (primary) hypertension Take 1 Tablet by mouth daily. 90 Tablet 1 3 Active Nortriptyline HCl 50 MG Oral Capsule (Pamelor) Take 1 Capsule by mouth at bedtime. 90 Capsule 3 3 Active Albuterol Sulfate HFA 108 (90 Base) MCG/ACT Inhalation Aerosol SolutionIndications :COPD, group B, by GOLD 2017 classification (HCC) TAKE 2 PUFFS BY MOUTH EVERY 4 [...] the morning. 120 Tablet 11 3 Active oxyCODONE-Acetamino phen 5-325 MG Oral Tablet (Percocet)Indicatio ns:Cervical spinal stenosis Take 1 Tablet by mouth every 6 hours as needed for Pain, Moderate. 30 Tablet 0 3 Active Omeprazole 20 MG Oral Capsule Delayed Release (PriLOSEC)Indicatio ns:Gastroesophageal reflux disease without esophagitis TAKE 1 CAPSULE BY MOUTH IN THE MORNING 1 HOUR BEFORE THE FIRST MEAL OF THE DAY 90 Capsule 1 4 Active Polyethylene Glycol 3350 17 GM/SCOOP Oral Powder (MiraLax) Take 17 g by mouth in the morning. Dissolve one heaping tablespoon in 8 ounces of water or juice.. 714 g 1 4 Active Vitamin D3 25 MCG (1000 UT) Oral Capsule Take 2 Capsules by mouth in the morning. Taking 2000 iu capsule. 0 06/08/19 24 Discontinued documented as of this encounter (statuses as of 06/08/2023) Active Problems Problem Noted Date Diagnosed Date [...] as of this encounter (statuses as of 06/08/2023) Resolved Problems Problem Noted Date Diagnosed Date [...] as of this encounter (statuses as of 06/08/2023) Immunizations Name Administration Dates Next Due COVID-19 [...] Sign Reading Time Taken Comments Blood Pressure 112/64 06/08/2023 12:34 PM EST Pulse 84 06/08/2023 12:34 PM EST Temperature 37 C (98.6 F) 06/08/2023 12:34 PM EST Respiratory Rate 18 06/08/2023 12:34 PM EST Oxygen Saturation 94% 06/08/2023 12:34 PM EST Inhaled Oxygen Concentration - - Weight 76.7 kg (169 lb) 06/08/2023 12:34 PM EST Height 162.6 cm (5' 4") 06/08/2023 12:34 PM EST Body Mass Index 29.01 06/08/2023 12:34 PM EST documented in this encounter Progress Notes * Padmini Valles CRNP - 06/08/2023 12:42 PM EST Images from the original note were not included. Follow up Family Medicine Visit History of Present Illness Jasmin Watters is a very pleasant 77 year old female with PMH listed below presenting with Hx of neck problem, wearing cervical collar usually, Visited her daughter and slept without cervical collar and woke up with chest stiffness and neck pain Today her pain is much better Hx of COPD, chronically SOB, but no more than usual Social History Socioeconomic History Marital status: Spouse name: Not on file Number of children: 2 Years of education: Not on file Highest education level: Not on file Occupational History Not on file Tobacco Use Smoking status: Former Packs/day: 1.00 Years: 30.00 Additional pack years: 0.00 Total pack years: 30.00 Types: Cigarettes Quit date: 2015 Years since quittin.1 Smokeless tobacco: Never Vaping Use Vaping Use: [...] 1 dog(s) [place] farm: 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[employer]; 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 [...] hemoglobin A1c goal of less than 8.0% ([facility]) 08/03/2014 ICD-10 update of inactive term Vitamin D insufficiency 12/04/2022 Takes supplemental d3 Past Surgical History: Procedure Laterality Date DELIVERY 1979 and 1981 X 2 COLONOSCOPY W/ BLEEDING CONTROL hyperplastic polyps--repeat 1-2 years COLONOSCOPY, DIAGNOSTIC (RECTUM) 03/07/2019 hyperplastic polyp, diverticulosis, fair prep, repeat 3 yrs / [facility] COLONOSCOPY, DIAGNOSTIC (RECTUM) N/A 05/09/2022 [facility], colonoscopy, prep-fair , moderate diverticulosis in sigmoid colon & descending, internal hemorrhoids / no specimens collected / 3 year recall / CYSTOSCOPY 02/22/2008 EGD, FLEXIBLE, DIAGNOSTIC 07/02/2021 esophagitis, hiatal hernia / ESOPHAGOGASTRODUODENOSCOPY (EGD), FLEXIBLE, TRANSORAL, DIAGNOSTIC performed by Mary Avendaño MD at ENDOSCOPY [facility] FACE/SCALP SUBQ TUMOR REMOVAL, UNDER 2 CM Left 10/26/2017 10/26/2017 EXCISION FACE/SCALP SUBQ TUMOR, UNDER 2 CM performed by Gaurav Rodriguez MD at OR [facility] dx benign epidermoid cyst , ruptured and nflamed LAPAROSCOPY; CHOLECYSTECTOMY 10/17/2019 OTHER 1979 removed rib PROCEDURE - GENERAL Right 07/19/2021 excison of lesion on left side of neck REMOVAL OF TONSILS, AGE 12+ age 21 Tonsils Removal,12+ Y/O SURGICAL PROCEDURE ONLY Right 06/20/2022 Excision Right neck a cyst by DR. Rodriguez Outpatient Medications Marked as Taking for the 06/08/23 encounter (Office Visit) with Padmini Valles CRNP Medication Sig Polyethylene Glycol 3350 17 GM/SCOOP Oral Powder (MiraLax) Take 17 g by mouth in the morning. Dissolve one heaping tablespoon in 8 ounces of water or juice.. Omeprazole 20 MG Oral Capsule Delayed Release [...] Take 1 Capsule by mouth at bedtime. Losartan Potassium 25 MG Oral Tablet (Cozaar) Take 1 Tablet by mouth daily. Trelegy Ellipta 200-62.5-25 MCG/ACT Aerosol Powder Breath Activated (Jfublthgzjm-Tzuuresugynf-Fljbwuruiq) Inhale 1 Puff by mouth in the morning. Levocetirizine Dihydrochloride 5 MG Oral Tablet (Xyzal Allergy 24HR) Take 1 Tablet by mouth every evening. Montelukast Sodium 10 MG Oral Tablet (Singulair) Take 1 Tablet by mouth in the morning. Lubiprostone 24 MCG Oral Capsule (Amitiza) Take 1 Capsule by mouth in the morning and 1 Capsule before bedtime. with food.. Ondansetron HCl 4 MG Oral Tablet Take 1 Tablet by mouth every 6 hours as needed for Nausea. Fluticasone Propionate 50 MCG/ACT Nasal Suspension (Flonase) Administer 2 Sprays into each nostril in the morning. Triamcinolone Acetonide 0.5 % External Cream Apply topically to affected area 2 times a day. To affected area (eczema). (Patient taking differently: Apply topically to affected area 2 times a day. Toaffected area (eczema). As needed) oxygen GAS Use 3 L/min(Oxygen) as directed at bedtime. During all periods of sleep. Review of patient's allergies indicates: Allergen Reactions Bactrim Nausea/vomiting Augmentin [Amoxicillin-Pot Clavulanate] Nausea/vomiting Clarithromycin Nausea/vomiting Most Recent Immunizations Administered Date(s) Administered COVID-19 mRNA, LNP-s, No Preserve, 2-Dose Series (Simpler) 06/25/2020 Hepatitis B, 20+ yrs 03/04/2001 Pneumococcal [...] Vaccine Recombinant (Shingrix) 11/07/2019 Review of Systems: Physical Exam BP 112/64 | Pulse 84 | Temp 37 C (98.6 F) (Tympanic) | Resp 18 | Ht 1.626 m (5' 4") | Wt 76.7 kg (169 lb) | BMI 29.01 kg/m | BSA 1.86 m Physical Exam Constitutional: Appearance: Normal appearance. HENT: Head: Normocephalic. Cardiovascular: Rate and Rhythm: Normal rate and regular rhythm. Pulmonary: Effort: Pulmonary effort is normal. Breath sounds: Decreased breath sounds present. Chest: Comments: Focal tenderness Musculoskeletal: Arms: Cervical back: Neck supple. Comments: Focal tenderness reproduced with palpation Skin: General: Skin is warm. Neurological: Mental Status: She is alert and oriented to person, place, and time. Psychiatric: Mood and Affect: Mood normal. Assessment and Plan 1. Intercostal muscle pain Reproduced on exam VSS today 2. COPD, group B, by GOLD 2017 classification (HCC) 3. Cervical spinal stenosis 4. HTN, goal below 130/80 At goal, cont current meds Wrap-Up I have advised the patient to call our office with any worsening or new symptoms. I spent a total of 20-29 minutes (exact time 25 mins) on the date of service in preparation, delivery, and documentation of the care provided to Jasmin Watters excluding any time spent in the performance of separately billed services. Padmini Valles, RAISA, MAREN [facility] documented in this encounter Nursing Notes * Tuyet Ford LPN - 06/08/2023 12:34 PM EST The patient has been properly identified by confirmation of name and date of . Chief Complaint Patient presents with Chest Discomfort Pt states she stayed somewhere other than home overnight and slept wrong on a pillow, states after she has some chest discomfort documented in this encounter Plan of Treatment Upcoming Encounters Date Type Department Care Team (Late st Contact Info) Description 06/09/2023 10:00 AM EST Medication Management Sukhjinder Aguirre [facility] [address] [place] [address] Pharmacist, Sukhjinder Aguirre [facility] [address] [place] [address] 06/17/2023 3:40 PM EST Office Visit [facility] [address] [place] [address] Mnoalisa Soto CRNP 132 [place] [address] 06/30/2023 4:40 PM EST Office Visit [facility] [address] [place] [address] Cordell Yi MD 132 [place] [address] 07/06/2023 10:00 AM EDT Office Visit Neurology [facility] [address] [facility] [place] [address] Obdulio Worthy MD 200 [place] [address] 08/24/2023 11:00 AM EDT Nurse Only Ancillary [facility] [address] [place] [address] [facility], Nurse Annual Wellness [address] [address] Scheduled Procedures Name Priority Associated Diagnoses Date/Ti [...] 06/16/2019 LUNG CANCER SCREENING - USE SMARTSET [address] Completed 03/19/2021, 06/19/2020, 05/03/2019, Additional history exists [...] as of this encounter Visit Diagnoses Diagnosis Intercostal muscle pain- Primary Other chest pain COPD, group B, by GOLD 2017 classification (HCC) Cervical spinal stenosis Spinal stenosis in cervical region HTN, goal below 130/80 Unspecified essential hypertension documented in this encounter Advance Directives Documents on File Type Date Recorded Patient Wirer Helper Expl anation Advance Directives and Living Will 10/05/2021 ADVANCE DIRECTIVE / LIVING WILL Power of Loom Checker 10/05/2021 POWER OF A TTORNEY Care Teams Records Custodian Relationship Specialty Start Date End Date Cordell Yi MD [address] [place] [address] PCP - General Family Medicine 06/23/20 documented as of this encounter
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
--- OUTSIDE RECORDS SUMMARY | 2023-06-13 07:09 | External Medical Summary | Summary of Care ---
Author Name Unknown Organization [facility] Address [address] [facility] [place] [address] Phone [phone] Care Team Providers Care Die Attacher Name Role Phone Cordell Yi MD Primary Care Provider [phone] Reason for Visit * Reason Comments Cold Symptoms Congestion Short of Breath Encounter Details Date Type Department Care Team (Latest Contact Info) Description 06/10/2023 1:15 PM EST Convenient Care Visit [facility] [address] [place] [address] Pamela Snyder PA-C [address] [place] [address] COPD exacerbation (HCC)* Allergies Active Allergy Reactions Criticality Noted Date Comments Amoxicillin-Pot Clavulanate Nausea/vomiting 01/2020 Bactrim Nausea/vomiting Medium 01/28/2010 Clarithromycin Nausea/vomiting 09/15/2007 documented as of this encounter (statuses as of 06/10/2023) Medications Medication Sig Dispensed Refills Start Date [...] Patient not taking.Informant: Patient, Reported on 06/09/2023 WelcareTouch Verio w/Device KitIndications:Type 2 diabetes mellitus with hemoglobin A1c goal of less than 8.0% ([facility]) Use up to 4 times a day as needed E11.9 1 Kit 0 07/17/2021 Active OneTouch Delica Plus [id number] CHECK BLOOD SUGAR UP TO 4 TIMES DAILY E11.9 200 Each 1 05/30/2022 Active Fluticasone Propionate 50 MCG/ACT Nasal Suspension (Flonase) Administer 2 Sprays into each nostril in the morning. 16 g 5 08/20/2022 Active Ondansetron HCl 4 MG Oral Tablet Take 1 Tablet by mouth every 6 hours as needed for Nausea. 30 Tablet 0 09/30/2022 Active [email or web address] In Vitro Strip (Glucose Blood)Indications:Typ e 2 diabetes mellitus with hemoglobin A1c goal of less than 8.0% ([facility]) USE UP TO 4 TIMES A [...] OPD, group B, by GOLD 2017 classification ([facility]) TAKE 2 PUFFS BY MOUTH EVERY [...] or juice.. 714 g 1 05/27/2023 Active CareFlashuch Verio w/Device Kit Use to test Blood Glucose Levels up to four times daily 1 Kit 0 06/09/2023 Active Trelegy Ellipta 200-62.5-25 MCG/ACT Aerosol Powder Breath Activated (Fluticasone-Umeclidi nium-Vilanterol) Inhale 1 Puff by mouth in the morning. 180 Blister Dosing Unit 1 06/09/2023 Active predniSONE 10 MG Oral Tablet (Deltasone)Indication s:COPD exacerbation (HCC) Take 5 tablets by mouth for 2 days, 4 tabs for 2 days, 3 tabs for 2 days, 2 tabs for 2 days 1 tab for 2 days 30 Tablet 0 06/10/2023 Active documented as of this encounter (statuses as of 06/10/2023) Active Problems Problem Noted Date Diagnosed Date [...] as of this encounter (statuses as of 06/10/2023) Resolved Problems Problem Noted Date Diagnosed Date [...] as of this encounter (statuses as of 06/10/2023) Immunizations Name Administration Dates Next Due COVID-19 [...] 30 Q uit: 2016 Smokeless Tobacco: Never Tobacco Cessation:Counseling Given: No Alcohol Use Standard Drinks/Week Comments No 0 [...] Sign Reading Time Taken Comments Blood Pressure 102/62 06/10/2023 1:15 PM EST Pulse 84 06/10/2023 1:27 PM EST Temperature 36.5 C (97.7 F) 06/10/2023 1:15 PM ES T Respiratory Rate 95 06/10/2023 1:27 PM EST Oxygen Saturation 92% 06/10/2023 1:15 PM EST Inhaled Oxygen Concentration - - Weight 77.8 kg (171 lb 9.6 oz) 06/10/2023 1:15 P M EST Height 162.6 cm (5' 4") 06/10/2023 1:15 PM EST Body Mass Index 29.46 06/10/2023 1:15 PM EST documented in this encounter Patient Instructions * Patient Instructions* Pamela Snyder PA-C - 06/10/2023 1:29 PM EST Talk with your Primary Care Provider for getting a pulse oximeter Go to ER if symptoms worsen,, F/u w Dr. Yi as planned documented in this encounter Progress Notes * Pamela Snyder PA-C - 06/10/2023 1:26 PM EST Subjective: Nursing Notes: Marcella Singh, PBT 06/10/23 9809 Signed Jasmin Watters is a 77 year old female who presents to walk-in clinic today complaining of Chief Complaint Patient presents with Cold Symptoms Congestion Short of Breath Main Symptoms:Has chest congestion and feels more short of breath Cause: Unknown How long: Onset few weeks Tried: Aleve, for ZAFAR, some relief Pt accompanied by: Self Sx are bronchitis no sick contacts at home. Sig med hx/risk factors: Type II, COPD had flu shot this year. Review of Systems Constitutional: Negative for activity change, appetite change, fatigue and fever. HENT: Negative for congestion, ear pain, postnasal drip, rhinorrhea, sinus pressure, sinus pain, sore throat and voice change. Eyes: Negative for discharge and redness. Respiratory: Positive for cough, chest tightness, shortness of breath (with activity) and wheezing (a little). Cardiovascular: Negative for chest pain. Gastrointestinal: Negative for abdominal pain, diarrhea, nausea and vomiting. Musculoskeletal: Negative for arthralgias, neck pain and neck stiffness. Allergic/Immunologic: Negative for environmental allergies. Neurological: Positive for headaches (has had more ZAFAR's off an on x 5 months. not changed w this illness). Negative for dizziness. PMH: Patient Active Problem List Diagnosis Code Recurrent headache R51.9 Type 2 diabetes mellitus with hemoglobin A1c goal of less than 8.0% ([facility]) E11.9 HTN, goal below 130/80 I10 Nocturnal hypoxemia G47.34 Gastroesophageal reflux disease without esophagitis K21.9 COPD, group B, by GOLD 2017 classification ([facility]) J44.9 Cervical myofascial pain syndrome M79.18 Dyslipidemia E78.5 Cervical spinal stenosis M48.02 Overweight (BMI 25.0-29.9) E66.3 Irritable bowel syndrome with constipation K58.1 Vitamin D insufficiency E55.9 Depression with anxiety F41.8 Type 2 diabetes mellitus with diabetic peripheral angiopathy without gangrene, without long-term current use of insulin ([facility]) E11.51 DDD (degenerative disc disease), cervical M50.30 Current Outpatient Medications Medication Sig Dispense Refill oxygen GAS Use 3 L/min(Oxygen) as directed at bedtime. During all periods of sleep. 1 Each 0 Triamcinolone Acetonide 0.5 % External Cream Apply topically to affected area 2 times a day. To affected area (eczema). (Patient taking differently: Apply topically to affected area 2 times a day. Toaffected area (eczema). As needed) 60 g 5 Ingo Money Verio w/Device Kit Use up to 4 times a day as needed E11.9 1 Kit 0 In[employer] Money Delica Plus [id number] CHECK BLOOD SUGAR UP TO 4 TIMES DAILY E11.9 200 Each 1 Fluticasone Propionate 50 MCG/ACT Nasal Suspension (Flonase) Administer 2 Sprays into each nostril in the morning. 16 g 5 Ondansetron HCl 4 MG Oral Tablet Take 1 Tablet by mouth every 6 hours as needed for Nausea. 30 Tablet 0 WelcareTouch Verio In Vitro Strip (Glucose Blood) USE UP TO 4 TIMES A DAY 400 Strip 0 Lubiprostone 24 MCG Oral Capsule (Amitiza) Take 1 Capsule by mouth in the morning and 1 Capsule before bedtime. with food.. 180 Capsule 3 Montelukast Sodium 10 MG Oral Tablet (Singulair) Take 1 Tablet by mouth in the morning. 90 Tablet 3 Levocetirizine Dihydrochloride 5 MG Oral Tablet (Xyzal Allergy 24HR) Take 1 Tablet by mouth every evening. 90 Tablet 3 Losartan Potassium 25 MG Oral Tablet (Cozaar) Take 1 Tablet by mouth daily. 90 Tablet 1 Nortriptyline HCl 50 MG Oral Capsule (Pamelor) [...] mouth in the morning. 120 Tablet 11 oxyCODONE-Acetaminophen 5-325 MG Oral Tablet (Percocet) Take 1 Tablet by mouth every 6 hours as needed for Pain, Moderate. 30 Tablet 0 Omeprazole 20 MG Oral Capsule Delayed Release (PriLOSEC) TAKE 1 CAPSULE BY MOUTH IN THE MORNING 1 HOUR BEFORE THE FIRST MEAL OF THE DAY 90 Capsule 1 Polyethylene Glycol 3350 17 GM/SCOOP Oral Powder (MiraLax) Take 17 g by mouth in the morning. Dissolve one heaping tablespoon in 8 ounces of water or juice.. 714 g 1 GreenWave Reality w/Device Kit Use to test Blood Glucose Levels up to four times daily 1 Kit 0 Trelegy Ellipta 200-62.5-25 MCG/ACT Aerosol Powder Breath Activated (Feldqbpvlij-Mytrrwvtldka-Ecjbyryfgi) Inhale 1 Puff by mouth in the morning. 180 Blister Dosing Unit 1 predniSONE 10 MG Oral Tablet (Deltasone) Take 5 tablets by mouth for 2 days, 4 tabs for 2 days, 3 tabs for 2 days, 2 tabs for 2 days 1 tab for 2 days 30 Tablet 0 Diclofenac Sodium 1 % External Gel (Voltaren) Apply 2 g topically to affected area 2 times a day. Apply the effected are of the neck (Patient not taking: Reported on 06/09/2023) 350 g 1 No current facility-administered medications for this visit. Past Medical History: Diagnosis Date Asthma, severity to be determined 1995 Asthma w/o status Benign neoplasm of colon 10/19/07 hyperplastic polyps--repeat 1-2 years Cervical myofascial pain syndrome 07/17/2021 Dyslipidemia 02/21/2022 Gastroesophageal reflux disease without esophagitis 06/25/2020 HTN, goal below 130/80 11/16/2014 Overweight (BMI 25.0-29.9) 05/26/2022 Tobacco use disorder Type 2 diabetes mellitus with hemoglobin A1c goal of less than 8.0% ([facility]) 08/03/2014 ICD-10 update of inactive term Vitamin D insufficiency 12/04/2022 Takes supplemental d3 Past Surgical History: Procedure Laterality Date DELIVERY 1979 and 1981 X 2 COLONOSCOPY W/ BLEEDING CONTROL hyperplastic polyps--repeat 1-2 years COLONOSCOPY, DIAGNOSTIC (RECTUM) 03/07/2019 hyperplastic polyp, diverticulosis, fair prep, repeat 3 yrs / [facility] COLONOSCOPY, DIAGNOSTIC (RECTUM) N/A 05/09/2022 [facility], colonoscopy, prep-fair , moderate diverticulosis in sigmoid colon & descending, internal hemorrhoids / no specimens collected / 3 year recall / CYSTOSCOPY 02/22/2008 EGD, FLEXIBLE, DIAGNOSTIC 07/02/2021 esophagitis, hiatal hernia / ESOPHAGOGASTRODUODENOSCOPY (EGD), FLEXIBLE, TRANSORAL, DIAGNOSTIC performed by Mary Avendaño MD at ENDOSCOPY [facility] FACE/SCALP SUBQ TUMOR REMOVAL, UNDER 2 CM Left 10/26/2017 10/26/2017 EXCISION FACE/SCALP SUBQ TUMOR, UNDER 2 CM performed by Gaurav Rodriguez MD at OR [facility] dx benign epidermoid cyst , ruptured and nflamed LAPAROSCOPY; CHOLECYSTECTOMY 10/17/2019 OTHER 1979 removed rib PROCEDURE - GENERAL Right 07/19/2021 excison of lesion on left side of neck REMOVAL OF TONSILS, AGE 12+ age 21 Tonsils Removal,12+ Y/O SURGICAL PROCEDURE ONLY Right 06/20/2022 Excision Right neck a cyst by DR. Rodriguez Review of patient's allergies indicates: Allergen Reactions Bactrim Nausea/vomiting Augmentin [Amoxicillin-Pot Clavulanate] Nausea/vomiting Clarithromycin Nausea/vomiting Objective: BP 102/62 | Pulse 84 | Temp 36.5 C (97.7 F) (Tympanic) | Resp 95 | Ht 1.626 m (5' 4") | Wt 77.8kg (171 lb 9.6 oz) | SpO2 92% | BMI 29.46 kg/m | BSA 1.87 m Physical Exam Constitutional: General: She is not in acute distress. Appearance: Normal appearance. She is normal weight. She is not ill-appearing. HENT: Head: Normocephalic. Right Ear: Tympanic membrane, ear canal and external ear normal. Left Ear: Tympanic membrane, ear canal and external ear normal. Nose: Congestion and rhinorrhea present. Mouth/Throat: Mouth: Mucous membranes are moist. Pharynx: Posterior oropharyngeal erythema present. No oropharyngeal exudate. Eyes: General: Right eye: No discharge. Left eye: No discharge. Extraocular Movements: Extraocular movements intact. Conjunctiva/sclera: Conjunctivae normal. Cardiovascular: Rate and Rhythm: Normal rate and regular rhythm. Heart sounds: Normal heart sounds. Pulmonary: Effort: Pulmonary effort is normal. No respiratory distress. Breath sounds: Decreased breath sounds (lower lobes) present. No wheezing or rhonchi. Abdominal: General: There is no distension. Tenderness: There is no right CVA tenderness or left CVA tenderness. Musculoskeletal: Cervical back: Normal range of motion. Skin: Findings: No rash. Neurological: Mental Status: She is alert and oriented to person, place, and time. Psychiatric: Mood and Affect: Mood normal. Thought Content: Thought content normal. Judgment: Judgment normal. ASSESSMENT/PLAN: COPD exacerbation (HCC) (Primary) - predniSONE 10 MG Oral Tablet (Deltasone); Take 5 tablets by mouth for 2 days, 4 tabs for 2 days, 3 tabs for 2 days, 2 tabs for 2 days 1 tab for 2 days Patient Instructions Talk with your Primary Care Provider for getting a pulse oximeter Go to ER if symptoms worsen,, F/u w Dr. Yi as planned Return instruction reviewed with pt in detail. Reasons to report to the ED were also reviewed. Voiced understanding Advised to follow up if no improvement in 3-5days. Pamela Snyder PA-C documented in this encounter Nursing Notes * Marcella Singh PBT - 06/10/2023 1:18 PM EST Jasmin Watters is a 77 year old female who presents to walk-in clinic today complaining of Chief Complaint Patient presents with Cold Symptoms Congestion Short of Breath Main Symptoms:Has chest congestion and feels more short of breath Cause: Unknown How long: Onset few weeks Tried: [place], for ZAFAR, some relief Pt accompanied by: Self documented in this encounter Plan of Treatment Upcoming Encounters Date Type Department Care Team (Late st Contact Info) Description 06/17/2023 3:40 PM EST Office Visit [facility] [address] [address] Monalisa Soto CRNP [address] [place] [address] 06/30/2023 4:40 PM EST Office Visit [facility] [address] [address] Cordell Yi MD [address] [place] [address] 07/06/2023 10:00 AM EDT Office Visit Neurology [facility] [address] [place] [address] Obdulio Worthy MD [address] [place] [address] 08/24/2023 11:00 AM EDT Nurse Only Ancillary [place] Craig [place] [address] [facility] [address] Craig, Nurse Annual Wellness [facility] [address] [facility] [address] Scheduled Procedures Name Priority Associated Diagnoses Date/Ti [...] ASSESSMENT COMPLETED IN PAST YEAR FOR COPD 06/10/2024 06/10/2023 COLONOSCOPY-EVERY 3 YRS AGES 18-100 05/09/2025 05/09/2022, 05/09/2022, 03/07/2019, Additional history exists DTaP,Tdap,and Td Vaccines (3 - Td or Tdap) 05/24/2028 05/24/2018, 10/23/2008 Pneumococcal Vaccine: 65+ Years Completed 01/27/2019, 03/21/2014 Zoster Vaccines Completed 11/07/2019, 06/16/2019 LUNG CANCER SCREENING - USE SMARTSET [id number] Completed 03/19/2021, 06/19/2020, 05/03/2019, Additional history exists [...] as of this encounter Visit Diagnoses Diagnosis COPD exacerbation (HCC)- Primary Obstructive chronic bronchitis with exacerbation documented in this encounter Advance Directives Documents on File Type Date Recorded 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
--- OUTSIDE RECORDS SUMMARY | 2023-06-13 07:09 | External Medical Summary | Summary of Care ---
Author Name Unknown Organization [facility] Address [address] [facility] [place] [address] Phone [phone] Care Team Providers Care Rn Bsn Name Role Phone Christine Grayson MD Primary Care Provider [phone] Encounter Details Date Type Department Care Team (Late st Contact Info) Description 06/09/2023 Refill Family Practice [facility] [address] [place] [address] Christine Grayson MD [address] [place] [address] Allergies Active Allergy Reactions Criticality Noted Date [...] hemoglobin A1c goal of less than 8.0% ([facility]) Use up to 4 times a day as needed E11.9 1 Kit 0 2 Active OneTouch Delica Plus [id number] CHECK BLOOD SUGAR UP TO 4 TIMES [...] hemoglobin A1c goal of less than 8.0% ([facility]) USE UP TO 4 [...] COPD, group B, by GOLD 2017 classification ([facility]) TAKE 2 PUFFS BY [...] or juice.. 714 g 1 4 Active OneTouch Verio w/Device Kit Use to test Blood Glucose Levels up to four times daily 1 Kit 0 4 Active Trelegy Ellipta 200-62.5-25 MCG/ACT Aerosol [...] 06/09/2023 11:31 AM ESTSigned Prescriptions: Disp Refills OneTouch Verio w/Device Kit 1 Kit 0 Sig: Use to test Blood Glucose Levels up to four times dailyAuthorizing Provider: CHRISTINE GRAYSON * Telephone Encounter - Cornell Waldrop RPh - 06/09/2023 10:53 AM EST Good Day, I completed a comprehensive medication review with member Jasmin AwadNadia Watters. Per our conversation the member's blood glucose meter is damaged. Pending Prescriptions: Disp Refills OneTouch Verio w/Device Kit 1 Kit 0 Sig: Use to test Blood Glucose Levels up to four times daily Please sign if agreeable and route back to me so I can advise her. Thank You Cornell Waldrop, PharmD Health Plan Pharmacist Medication Therapy Managment [facility] [phone] documented in this encounter Plan of Treatment Upcoming Encounters Date Type Department Care Team (Late st Contact Info) Description 06/17/2023 3:40 PM EST Office Visit [facility] [address] [facility] [place] [address] Monalisa Soto CRNP [address] [facility] [place] [address] 06/30/2023 4:40 PM EST [facility] [place] [address] Christine Grayson MD [address] [facility] [place] [address] 07/06/2023 10:00 AM EDT Office [facility] [address] [facility] [place] [address] Obdulio Worthy MD [address] [facility] [place] [address] 08/24/2023 11:00 AM EDT [facility] [address] [facility] [place] [address] Rafa, Nurse Annual Wellness [facility] [address] [facility] [place] [address] Scheduled Procedures Name Priority Associated Diagnoses Date/Ti [...] 10/22/2022, Additional history exists B-12 02/24/2024 02/23/2023, 0809/2021, 09/10/2020, Additional history exists GFR 02/24/2024 02/23/2023, 12/27, 02/17/2022, Additional history exists O2 ASSESSMENT COMPLETED IN PAST YEAR FOR COPD 06/08/2024 06/08/2023 COLONOSCOPY-EVERY 3 YRS AGES 18-100 05/09/2025 05/09/2022, 05/09/2022, 03/07/2019, Additional history exists DTaP,Tdap,and Td Vaccines (3 - Td or Tdap) 05/24/2028 05/24/2018, 10/23/2008 Pneumococcal Vaccine: 65+ Years Completed 01/27/2019, 03/21/2014 Zoster Vaccines Completed 11/07/2019, 06/16/2019 LUNG CANCER SCREENING - USE SMARTSET [id number] Completed 03/19/2021, 06/19/2020, 05/03/2019, Additional history exists [...] Documents on File Type Date Recorded Patient 

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
--- OUTSIDE RECORDS SUMMARY | 2023-06-13 07:10 | External Medical Summary | Summary of Care ---
Author Name Unknown Organization [facility] Address [address] [facility] [place] [address] Phone [phone] Care Team Providers Care Exhibit Carpenter Name Role Phone Cordell Yi MD Primary Care Provider [phone] Reason for Visit * Reason Onset Date Comments Appointment 04/28/2023 Encounter Details Date Type Department Care Team (Late st Contact Info) Description 04/28/2023 Telephone Pulmonary Medicine, [facility] [address] [place] [address] Nilam Thayer DO [address] [place] [address] Appointment Allergies Active Allergy Reactions Criticality Noted Date Comments Amoxicillin-Pot Clavulanate Nausea/vomiting 01/2020 Bactrim Nausea/vomiting Medium 01/28/2010 Clarithromycin Nausea/vomiting 09/15/2007 documented as of this encounter (statuses as of 04/28/2023) Medications Medication Sig Dispensed Refills Start Date [...] hemoglobin A1c goal of less than 8.0% ([facility]) Use up to 4 times a day as needed E11.9 1 Kit 0 07/17/2021 Active OneTouch Delica Plus [id number] CHECK BLOOD SUGAR UP TO 4 TIMES [...] OPD, group B, by GOLD 2017 classification ([facility]) TAKE 2 PUFFS BY MOUTH [...] as of this encounter (statuses as of 04/28/2023) Active Problems Problem Noted Date Diagnosed Date [...] as of this encounter (statuses as of 04/28/2023) Resolved Problems Problem Noted Date Diagnosed Date [...] as of this encounter (statuses as of 04/28/2023) Immunizations Name Administration Dates Next Due COVID-19 mRNA, LNP-s, No Pre serve, 2-Dose Series ([employer]) 06/25/2020,05/28/2020 Pneumococcal Conjugate Vacc, 13 Valent (Prevnar) [...] encounter Miscellaneous Notes * Telephone Encounter - Latha Dempsey OSA - 04/28/2023 12:35 PM EST Pt wants to go to [facility], Please advise. documented in this encounter Plan of Treatment Upcoming Encounters Date Type Department Care Team (Late st Contact Info) Description 05/01/2023 10:00 AM EST Office Visit Otolaryngology [facility] [address] [place] [address] Jerod Cowan, [address] [place] [address] 06/03/2023 9:20 AM EST Office Visit Family Practice [facility] [address] [place] [address] Monalisa Soto CRNP [address] [place] [address] 07/06/2023 10:00 AM EDT Office Visit [facility] [address] [place] [address] Obdulio Worthy MD [address] [place] [address] 08/24/2023 11:00 AM EDT Nurse Only Ancillary [facility] [address] [place] [address] [place], Nurse Annual Wellness [facility] [address] [address] [address] Scheduled Procedures Name Priority Associated Diagnoses Date/Ti me COLONOSCOPY FLEXIBLE PROXIMAL DIAGNOSTIC Recall History of colon polyps Health Maintenance Due Date Last Done Comments Hepatitis B (2 of 3 - Risk 3-dose series) 04/01/2001 03/04/2001 COVID-19 Vaccine (3 - 2022- season) 2022 06/25/2020, 05/28/2020 Influenza Vaccine (FLU [...] 06/16/2019 LUNG CANCER SCREENING - USE SMARTSET [id number] Completed 03/19/2021, 06/19/2020, 05/03/2019, Additional history exists [...] Documents on File Type Date Recorded Patient Discotheque Dancer Expl anation Advance Directives and Living Will 10/05/2021 ADVANCE DIRECTIVE / LIVING WILL Power of Steward [employer] 10/05/2021 POWER OF A TTORNEY Care Teams Exhibit Carpenter Relationship Specialty Start Date End Date Cordell Yi MD [address] [place] [address] PCP - General Family Medicine 06/23/20 documented as of this encounter
--- OUTSIDE RECORDS SUMMARY | 2023-06-13 07:10 | External Medical Summary | Summary of Care ---
Author Name Unknown Organization [facility] Address [address] [facility] [place] [address] Phone [phone] Care Team Providers Care Firebreak Cutter Name Role Phone Cordell Yi MD Primary Care Provider +1 [phone] Reason for Visit * Reason Onset Date Comments Med Request 04/08/2023 Encounter Details Date Type Department Care Team (Late st Contact Info) Description 04/08/2023 Telephone Family Practice [facility] [address] [place] [address] Cordell Yi MD [address] [place] [address] Med Request (/) Allergies Active Allergy Reactions Criticality Noted Date Comments Amoxicillin-Pot Clavulanate Nausea/vomiting 01/2020 Bactrim Nausea/vomiting Medium 01/28/2010 Clarithromycin Nausea/vomiting 09/15/2007 documented as of this encounter (statuses as of 04/08/2023) Medications Medication Sig Dispensed Refills Start Date [...] Kit 0 07/17/2021 Active OneTouch Delica Plus [id number] CHECK BLOOD SUGAR UP TO 4 TIMES [...] group B, by GOLD 2017 classification ([facility]) TAKE 2 PUFFS BY [...] 2 days 20 Tablet 0 04/08/2023 Active Hospital, Clinic, or Other Facility Administered Medication Ordered Dose Route Frequency Start Date End Date Status Albuterol Sulfate (Proventil) (2.5 MG/3ML) 0.083% inhalation solution 2.5 mgIndications:Bronchiti s, complicated,SOB (shortness of breath) 2.5 mg NEBULIZER ONCE PRN 04/14/2022 04/14/2023 Act torrie documented as of this encounter (statuses as of 04/08/2023) Active Problems Problem Noted Date Diagnosed Date [...] as of this encounter (statuses as of 04/08/2023) Resolved Problems Problem Noted Date Diagnosed Date [...] as of this encounter (statuses as of 04/08/2023) Immunizations Name Administration Dates Next Due COVID-19 mRNA, LNP-s, No Pre serve, 2-Dose Series (Pfizer) 06/25/2020,05/28/2020 Pneumococcal Conjugate Vacc, 13 Valent (Prevnar) 01/27/2019 Pneumococcal Polysaccharide PPV23 (Pneumovax) 03/21/2014 Seasonal Influenza, Quadriva lent, No Preserve, IM 05/14/2016,02/23/2015 Seasonal Influenza, Split, I IV3, With Preserve, Inj 04/12/2014,02/08/2013,02/21/2011,11/0 05/2009,05/09/2008,03/01/2008 02/26/2011 Seasonal Influenza, Trivalen t, High Dose, [...] encounter Miscellaneous Notes * Telephone Encounter - Marcella Arambula LPN - 04/08/2023 3:09 PM EST Addressed in another encounter. * Telephone Encounter - Cordell Yi MD - 04/08/2023 12:00 PM EST It is NOT for four days. It is for 8 days which is standard. 10 days not indicated. * Telephone Encounter - Zoey Garcia CPhT - 04/08/2023 9:21 AM EST Pt calling she wanted to know why she was only given 4 days of Prednisone. She is requesting a 10 day supply. Please advise Thank you, Zoey Garcia CPhT Facilities Coordinator [facility] ([facility])(formerly telepharmacy) 04/08/2023,9:23 AM documented in this encounter Plan of Treatment Upcoming Encounters Date Type Department Care Team (Late st Contact Info) Description 04/23/2023 9:20 AM EST Office Visit Sleep Disorders Ctr [facility] [address] [facility] [place] [address] Nilam Thayer, DO 132 [facility] [place] [address] 05/01/2023 10:00 AM EST Office Visit Otolaryngology [facility] [address] [facility] [place] [address] Jerod Cowan, DO 132 [facility] [place] [address] 06/03/2023 9:20 AM EST Office Visit Family Practice [facility] [address] [facility] [place] [address] Monalisa Soto CRNP 132 [facility] [place] [address] 07/06/2023 10:00 AM EDT Office Visit Neurology [facility] [address] [facility] [place] [address] Obdulio Worthy MD [address] [facility] [place] [address] 08/24/2023 11:00 AM EDT Nurse Only Ancillary [facility] 132 [facility] [place] [address] [facility], Nurse Annual Wellness [facility] [address] [facility] [place] [address] Scheduled Procedures Name Priority Associated Diagnoses Date/Ti me COLONOSCOPY FLEXIBLE PROXIMAL DIAGNOSTIC Recall History of colon polyps Health Maintenance Due Date Last Done Comments Hepatitis B (2 of 3 - Risk 3-dose series) 04/01/2001 03/04/2001 COVID-19 Vaccine (3 - 2022-24 season) 2022 06/25/2020, 05/28/2020 Influenza Vaccine (FLU [...] ASSESSMENT COMPLETED IN PAST YEAR FOR COPD 04/06/2024 04/06/2023 COLONOSCOPY-EVERY 3 YRS AGES 18-100 05/09/2025 05/09/2022, 03/07/2019, 10/19/2007 DTaP,Tdap,and Td Vaccines (3 - Td or Tdap) 05/24/2028 05/24/2018, 10/23/2008 Pneumococcal Vaccine: 65+ Years Completed 01/27/2019, 03/21/2014 Zoster Vaccines Completed 11/07/2019, 06/16/2019 LUNG CANCER SCREENING - USE SMARTSET [id number] Completed 03/19/2021, 06/19/2020, 05/03/2019, Additional history exists Alpha-1 Antitrypsin Completed 02/23/2023 DXA Scan Discontinued GARDASIL-HPV IMMUNIZATION SERIES Aged Out No longer eligible based on patient's age to complete this topic MENINGOCOCCAL (MENACTRA/MENVEO) Aged Out No longer eligible based on patient's age to complete this topic documented as of this encounter Medical Devices Not on filedocumented as of this encounter Additional Health Concerns Infection Onset Date Last Indicated Resolved Time ESBL 02/23/2023 02/23/2023 documented as of this encounter Advance Directives Documents on File Type Date Recorded Patient Gizzard Peeler Expl anation Advance Directives and Living Will 10/05/2021 ADVANCE DIRECTIVE / LIVING WILL Power of Senior Market Intelligence Consultant 10/05/2021 POWER OF A TTORNEY Care Teams Firebreak Cutter Relationship Specialty Start Date End Date Cordell Yi MD [address] [place] [address] PCP - General Family Medicine 06/23/20 documented as of this encounter
--- OUTSIDE RECORDS SUMMARY | 2023-06-13 07:10 | External Medical Summary | Summary of Care ---
Author Name Unknown Organization [facility] Address [address] [facility] [place] [address] Phone [phone] Care Team Providers Care Special Events Fundraiser Name Role Phone Cordell Yi MD Primary Care Provider [phone] [phone] Reason for Visit * Reason Onset Date Comments Appointment 04/28/2023 Encounter Details Date Type Department Care Team (Late st Contact Info) Description 04/28/2023 Telephone Pulmonary Medicine, [facility] [address] [place] [address] Nilam Thayer DO [address] [place] [address] Appointment Allergies Active Allergy Reactions Criticality Noted Date Comments Amoxicillin-Pot Clavulanate Nausea/vomiting 01/2020 Bactrim Nausea/vomiting Medium 01/28/2010 Clarithromycin Nausea/vomiting 09/15/2007 documented as of this encounter (statuses as of 05/01/2023) Medications Medication Sig Dispensed Refills Start Date [...] goal of less than 8.0% ([facility]) Use up to 4 times a day as needed E11.9 1 Kit 0 07/17/2021 Active OneTouch Delica Plus [id number] CHECK BLOOD SUGAR UP TO 4 TIMES [...] B, by GOLD 2017 classification ([facility]) TAKE 2 PUFFS BY MOUTH EVERY 4 [...] as of this encounter (statuses as of 05/01/2023) Active Problems Problem Noted Date Diagnosed Date [...] as of this encounter (statuses as of 05/01/2023) Resolved Problems Problem Noted Date Diagnosed Date [...] as of this encounter (statuses as of 05/01/2023) Immunizations Name Administration Dates Next Due COVID-19 mRNA, LNP-s, No Pre serve, 2-Dose Series ([employer]) 06/25/2020,05/28/2020 Hepatitis B, 20+ yrs 03/04/2001 Pneumococcal [...] encounter Miscellaneous Notes * Telephone Encounter - Artur Quintana OSA - 05/01/2023 11:27 AM EST Orders sent to [facility] * Telephone Encounter - Pérez Grossman OSA - 04/30/2023 5:01 PM EST Caller requesting the following information to be faxed: Name/Company of caller: Patient Information requested to be faxed: sleep study referral Fax number: [phone] Attention to Name/Company: [facility] Any additional information?: * Telephone Encounter - Latha Dempsey OSA - 04/28/2023 12:35 PM EST Pt wants to go to [employer], Please advise. documented in this encounter Plan of Treatment Upcoming Encounters Date Type Department Care Team (Late st Contact Info) Description 06/03/2023 9:20 AM EST Office Visit Family Practice [facility] [address] [place] [address] Monalisa Soto CRNP [address] [place] [address] 07/06/2023 10:00 AM EDT Office Visit Neurology [facility] [place] [address] [place] [address] Obdulio Worthy MD [address] [place] [address] 08/24/2023 11:00 AM EDT Nurse Only Ancillary [facility] [address] [facility], Nurse Annual Wellness [facility] [address] Scheduled Procedures Name Priority Associated Diagnoses Date/Ti [...] 06/16/2019 LUNG CANCER SCREENING - USE SMARTSET [id number] Completed 03/19/2021, 06/19/2020, 05/03/2019, Additional history exists [...] Documents on File Type Date Recorded Patient Meat Service Team Member Expl anation Advance Directives and Living Will 10/05/2021 ADVANCE DIRECTIVE / LIVING WILL Power of Environmental Projects Advisor 10/05/2021 POWER OF A TTORNEY Care Teams Special Events Fundraiser Relationship Specialty Start Date End Date Cordell Yi MD 132 [place] [address] PCP - General Family Medicine 06/23/20 documented as of this encounter
--- OUTSIDE RECORDS SUMMARY | 2023-06-13 07:10 | External Medical Summary | Summary of Care ---
Author Name Unknown Organization [facility] Address [address] [facility] [place] [address] Phone [phone] Care Team Providers Care Stereoplotter Operator Name Role Phone Cordell Yi MD Primary Care Provider +1 [phone] Encounter Details Date Type Department Care Team (Late st Contact Info) Description 05/01/2023 10:40 AM EST Immunization Ancillary [facility] 132 [facility] [place] [address] [facility] Flu Shot Clinic [facility] 132 [facility] [place] [address] Arrived Allergies Active Allergy Reactions Criticality Noted Date [...] Kit 0 07/17/2021 Active OneTouch Delica Plus [id number] CHECK BLOOD SUGAR UP TO 4 TIMES [...] hemoglobin A1c goal of less than 8.0% ([facility]) USE UP TO 4 TIMES [...] OPD, group B, by GOLD 2017 classification ([facility]) TAKE 2 PUFFS BY MOUTH [...] mRNA, LNP-s, No Pre serve, 2-Dose Series ([employer]) 06/25/2020,05/28/2020 Pneumococcal Conjugate Vacc, 13 Valent (Prevnar) [...] 9:20 AM EST Office Visit Family Practice [facility] [address] [place] [address] Monalisa Soto CRNP [address] [place] [address] 07/06/2023 10:00 AM EDT Office Visit Neurology [facility] [address] [facility] [place] [address] Obdulio Worthy MD [address] [facility] [place] [address] 08/24/2023 11:00 AM EDT Nurse Only Ancillary [facility] 132 [facility] [place] [address] [facility], Nurse Annual Wellness [facility] 132 [facility] [place] [address] Scheduled Procedures Name Priority Associated Diagnoses Date/Ti [...] 06/16/2019 LUNG CANCER SCREENING - USE SMARTSET [address]3937 Completed 03/19/2021, 06/19/2020, 05/03/2019, Additional history exists [...] Documents on File Type Date Recorded Patient Crate Icer Expl anation Advance Directives and Living Will 10/05/2021 ADVANCE DIRECTIVE / LIVING WILL Power of Weapons Electrical Engineering Officer 10/05/2021 POWER OF A TTORNEY Care Teams Stereoplotter Operator Relationship Specialty Start Date End Date Cordell Yi MD [address] [place] [address] PCP - General Family Medicine 06/23/20 documented as of this encounter
--- OUTSIDE RECORDS SUMMARY | 2023-06-13 07:10 | External Medical Summary | Summary of Care ---
Author Name Unknown Organization [facility] Address [address] [place] [address] Phone [phone] Care Team Providers Care Fashion Intern Name Role Phone Cordell Yi MD Primary Care Provider +1 [phone] Reason for Visit * Reason Onset Date Comments Encounter Created in Error 04/30/2023 Encounter Details Date Type Department Care Team (Late st Contact Info) Description 04/30/2023 Telephone Sleep Disorders Ctr [facility] 132 [facility] [place] [phone] Services, Scheduling [address] [place] [address] Encounter Created in Error Allergies Active Allergy Reactions Criticality Noted Date Comments Amoxicillin-Pot Clavulanate Nausea/vomiting 01/2020 Bactrim Nausea/vomiting Medium 01/28/2010 Clarithromycin Nausea/vomiting 09/15/2007 documented as of this encounter (statuses as of 04/30/2023) Medications Medication Sig Dispensed Refills Start Date [...] Kit 0 07/17/2021 Active OneTouch Delica Plus [id number] CHECK BLOOD SUGAR UP TO 4 TIMES [...] B, by GOLD 2017 classification ([facility]) TAKE 2 PUFFS BY MOUTH EVERY [...] as of this encounter (statuses as of 04/30/2023) Active Problems Problem Noted Date Diagnosed Date [...] as of this encounter (statuses as of 04/30/2023) Resolved Problems Problem Noted Date Diagnosed Date [...] as of this encounter (statuses as of 04/30/2023) Immunizations Name Administration Dates Next Due COVID-19 mRNA, LNP-s, No Pre serve, 2-Dose Series ([employer]) 06/25/2020,05/28/2020 Pneumococcal Conjugate Vacc, 13 Valent (Prevnar) [...] 05/01/2023 10:00 AM EST Office Visit Otolaryngology [facility] [address] [place] [address] Jerod Cowan DO [address] [place] [address] 06/03/2023 9:20 AM EST Office Visit Family Practice [facility] 132 [place] [address] Monalisa Soto CRNP 132 [facility] [place] [address] 07/06/2023 10:00 AM EDT Office Visit Neurology [facility] [place] [address] Obdulio Worthy MD [address] [facility] [place] [address] 08/24/2023 11:00 AM EDT Nurse Only Ancillary [facility] 132 [facility] [place] [address] [facility], Nurse Annual Wellness [facility] 132 [facility] [place] [address] Scheduled Procedures Name Priority Associated Diagnoses Date/Ti [...] 10/16/2021, Additional history exists B-12 02/24/2024 02/23/2023, 0809/2021, [...] 06/16/2019 LUNG CANCER SCREENING - USE SMARTSET [address]56[address] Completed 03/19/2021, 06/19/2020, 05/03/2019, Additional history exists [...] Documents on File Type Date Recorded Patient Dried Fruit Washer Expl anation Advance Directives and Living Will 10/05/2021 ADVANCE DIRECTIVE / LIVING WILL Power of Swimming Pool Installer 10/05/2021 POWER OF A TTORNEY Care Teams Fashion Intern Relationship Specialty Start Date End Date Cordell Yi MD [address] [place] [address] PCP - General Family Medicine 06/23/20 documented as of this encounter
--- OUTSIDE RECORDS SUMMARY | 2023-06-13 07:10 | External Medical Summary | Summary of Care ---
Author Name Unknown Organization [facility] Address [address] [facility] [place] [address] Phone [phone] Care Team Providers Care Radial Drill Press Operator For Plastic Name Role Phone Cordell Yi MD Primary Care Provider +1 [phone] Reason for Visit * Reason Comments NEW PATIENT * Evaluate & Treat - Unlimited Visits (Within 30 days (routine)) - Authorized Specialty Diagnoses / Procedures Referred By Arti penn Referred To Contact Otolaryngology Diagnoses Sinus pain Monalisa Soto CRNP [address] [place] [address] Referral ID Status Reason Start Date Expiration Date Visits Requested Visits Authorized [id number] Authorized Specialty Services Required [phone] Encounter Details Date Type Department Care Team (Latest Contact Info) Description 05/01/2023 10:00 AM EST Office Visit Otolaryngology [facility] 132 [facility] [place] [address] Jerod Cowan DO [address] [place] [address] Nonintractable headache, unspecified chronicity pattern, unspecified headache [...] Kit 0 07/17/2021 Active OneTouch Delica Plus [id number] CHECK BLOOD SUGAR UP TO 4 TIMES [...] group B, by GOLD 2017 classification ([facility]) TAKE 2 PUFFS BY MOUTH EVERY 4 [...] mRNA, LNP-s, No Pre serve, 2-Dose Series ([employer]) 06/25/2020,05/28/2020 Pneumococcal Conjugate Vacc, 13 Valent (Prevnar) [...] in this encounter Progress Notes * Jerod Cowan DO - 05/01/2023 10:21 AM EST 05/01/2023 HISTORY [...] interested in seeing the headache clinic at [facility] Problem List Patient Active Problem List Diagnosis Code Migraine variant G43.809 Type 2 diabetes mellitus with hemoglobin A1c goal of less than 8.0% ([facility]) E11.9 HTN, goal below 130/80 I10 Nocturnal hypoxemia G47.34 Gastroesophageal reflux disease without esophagitis K21.9 COPD, group B, by GOLD 2017 classification ([facility]) J44.9 Cervical myofascial pain syndrome M79.18 Dyslipidemia E78.5 Cervical spinal stenosis M48.02 Overweight (BMI 25.0-29.9) E66.3 Irritable bowel syndrome with constipation K58.1 Vitamin D insufficiency E55.9 Depression with anxiety F41.8 Type 2 diabetes mellitus with diabetic peripheral angiopathy without gangrene, without long-term current use of insulin ([facility]) E11.51 Past Medical History: Diagnosis Date Asthma, severity to be determined 1995 Asthma w/o status Benign neoplasm of colon 10/19/07 hyperplastic polyps--repeat 1-2 years Cervical myofascial pain syndrome 07/17/2021 Dyslipidemia 02/21/2022 Gastroesophageal reflux disease without esophagitis 06/25/2020 HTN, goal below 130/80 11/16/2014 Overweight (BMI 25.0-29.9) 05/26/2022 Tobacco use disorder Type 2 diabetes mellitus with hemoglobin A1c goal of less than 8.0% ([facility]) 08/03/2014 ICD-10 update of inactive term Vitamin D insufficiency 12/04/2022 Takes supplemental d3 Past Surgical History: Procedure Laterality Date DELIVERY 1979 and 1981 X 2 COLONOSCOPY W/ BLEEDING CONTROL hyperplastic polyps--repeat 1-2 years COLONOSCOPY, DIAGNOSTIC (RECTUM) 03/07/2019 hyperplastic polyp, diverticulosis, fair prep, repeat 3 yrs / [facility] COLONOSCOPY, DIAGNOSTIC (RECTUM) N/A 05/09/2022 [facility], colonoscopy, prep-fair , moderate diverticulosis in sigmoid colon & descending, internal hemorrhoids / no specimens collected / 3 year recall / CYSTOSCOPY 02/22/2008 EGD, FLEXIBLE, DIAGNOSTIC 07/02/2021 esophagitis, hiatal hernia / ESOPHAGOGASTRODUODENOSCOPY (EGD), FLEXIBLE, TRANSORAL, DIAGNOSTIC performed by Mary Avendaño MD at ENDOSCOPY [facility] FACE/SCALP SUBQ TUMOR REMOVAL, UNDER 2 CM Left 10/26/2017 10/26/2017 EXCISION FACE/SCALP SUBQ TUMOR, UNDER 2 CM performed by Gaurav Rodriguez MD at OR [facility] dx benign epidermoid cyst , ruptured [...] capsule. (Patient not taking: Reported on 04/06/2023) [employer] Verio w/Device Kit Use up to 4 times a day as needed E11.9 1 Kit 0 [employer] Delica Plus [id number] CHECK BLOOD SUGAR UP TO 4 TIMES DAILY E11.9 200 Each 1 Fluticasone Propionate 50 MCG/ACT Nasal Suspension (Flonase) Administer 2 Sprays into each nostril in the morning. 16 g 5 Ondansetron HCl 4 MG Oral Tablet Take 1 Tablet by mouth every 6 hours as needed for Nausea. 30 Tablet 0 Ariel WayTouch Verio In Vitro Strip (Glucose Blood) USE [...] Ellipta 200-62.5-25 MCG/ACT Aerosol Powder Breath Activated (Uurscoxvtve-Fdgxmtwbqoec-Cbgyydvkvx) Inhale 1 Puff by mouth in the [...] accessory muscles. Heart: Regular rate. No JVD. Assessment: 77-year-old female with chronic headaches. Plan: [...] separately billable services. Jerod Cowan DO, [facility] Otolaryngology [facility] [place] 05/01/2023 10:24 AM documented in this [...] testing. [place] and sure she has environmental allergies. She was taking Singulair, but not recently. She does follow with neurology. Also has nortriptyline and started magnesium oxide. Had MRI of neck in 2021. documented in this encounter Plan of Treatment Upcoming Encounters Date Type Department Care Team (Late st Contact Info) Description 05/01/2023 10:40 AM EST Immunization [facility] [address] [facility] [place] [address] [place], Flu Shot Clinic [facility] [address] [facility] [place] [address] Arrived 06/03/2023 9:20 AM EST [facility] [address] [facility] [place] [address] Monalisa Soto CRNP 132 [place] [address] 07/06/2023 10:00 AM EDT [facility] [place] [address] Obdulio Worthy MD 200 [facility] [place] [address] 08/24/2023 11:00 AM EDT Nurse Only Ancillary [address] [place] [address] [facility], Nurse Annual Wellness [address] [address] Scheduled Procedures Name Priority Associated Diagnoses Date/Ti me COLONOSCOPY FLEXIBLE PROXIMAL DIAGNOSTIC Recall History of colon polyps Scheduled Referrals Name Type Priority Associated Diagnoses Order Schedule OTOLARYNGOLOGY REFERRAL OP Referral Within 30 days (routine) Sinus pain Ordered: 02/05/2023 Health Maintenance Due Date Last Done Comments Hepatitis B (2 of 3 - Risk 3-dose series) 04/01/2001 03/04/2001 COVID-19 Vaccine (2022- season) 2022 06/25/2020, 05/28/2020 Depression Screening 08/21/2023 [...] 06/16/2019 LUNG CANCER SCREENING - USE SMARTSET 368[address] Completed 03/19/2021, 06/19/2020, 05/03/2019, Additional history exists [...] Documents on File Type Date Recorded Patient Cabana Attendant Expl anation Advance Directives and Living Will 10/05/2021 ADVANCE DIRECTIVE / LIVING WILL Power of Record Changer Assembler 10/05/2021 POWER OF A TTORNEY Care Teams Radial Drill Press Operator For Plastic Relationship Specialty Start Date End Date Cordell Yi MD [address] [place] [address] PCP - General Family Medicine 06/23/20 documented as of this encounter
--- OUTSIDE RECORDS SUMMARY | 2023-06-13 07:10 | External Medical Summary | Summary of Care ---
Author Name Unknown Organization [facility] Address [address] [facility] [place] [address] Phone [phone] Care Team Providers Care Systems Integration Advisor Name Role Phone Cordell Yi MD Primary Care Provider [phone] Reason for Visit * Reason Onset Date Comments Appointment 04/28/2023 Encounter Details Date Type Department Care Team (Late st Contact Info) Description 04/28/2023 Telephone Pulmonary Medicine, [facility] [address] [place] [address] Nilam Thayer DO [address] [place] [address] Appointment Allergies Active Allergy Reactions Criticality Noted [...] hemoglobin A1c goal of less than 8.0% ([facility]) Use up to 4 times a day as needed E11.9 1 Kit 0 07/17/2021 Active OneTouch Delica Plus [id number] CHECK BLOOD SUGAR UP TO 4 TIMES [...] OPD, group B, by GOLD 2017 classification ([facility]) TAKE 2 PUFFS BY MOUTH [...] mRNA, LNP-s, No Pre serve, 2-Dose Series ([employer]) 06/25/2020,05/28/2020 Hepatitis B, 20+ yrs 03/04/2001 Pneumococcal [...] encounter Miscellaneous Notes * Telephone Encounter - Pérez Grossman OSA - 04/30/2023 5:01 PM EST Caller requesting the following information to be faxed: Name/Company of caller: Patient Information requested to be faxed: sleep study referral Fax number: [phone] Attention to Name/Company: [facility] Any additional information?: * Telephone Encounter - Latha Dempsey OSA - 04/28/2023 12:35 PM EST Pt wants to go to [facility] [place], Please advise. documented in this encounter Plan of Treatment Upcoming Encounters Date Type Department Care Team (Late st Contact Info) Description 05/01/2023 10:00 AM EST Office Visit Otolaryngology [facility] [address] [place] [address] Jerod Cowan DO [address] [place] [address] 06/03/2023 9:20 AM EST Office Visit Family Practice [facility] [address] [place] [address] [address] Monalisa Soto CRNP [address] [place] [place] [address] 07/06/2023 10:00 AM EDT Office Visit Neurology [facility] [place] [address] [facility] [place] [address] Obdulio Worthy MD [address] [facility] [place] [address] 08/24/2023 11:00 AM EDT [facility] [address] [facility], Nurse Annual Wellness [facility] 132 [facility] [place] [address] Scheduled Procedures Name Priority Associated Diagnoses Date/Ti [...] 06/16/2019 LUNG CANCER SCREENING - USE SMARTSET 30864 Completed 03/19/2021, 06/19/2020, 05/03/2019, Additional history exists [...] Documents on File Type Date Recorded Patient [employer] Sales Consultant Expl anation Advance Directives and Living Will 10/05/2021 ADVANCE DIRECTIVE / LIVING WILL Power of Spectrographer 10/05/2021 POWER OF A TTORNEY Care Teams Systems Integration Advisor Relationship Specialty Start Date End Date Cordell Yi MD [address] [place] [address] PCP - General Family Medicine 06/23/20 documented as of this encounter
--- OUTSIDE RECORDS SUMMARY | 2023-06-13 07:11 | External Medical Summary | Summary of Care ---
Author Name Unknown Organization [facility] Address [address] [facility] [place] [address] Phone [phone] Care Team Providers Care Retail Leasing Agent Name Role Phone Cordell Yi MD Primary Care Provider [phone] Reason for Visit * Reason Comments Outpatient Testing Encounter Details Date Type Department Care Team (Late st Contact Info) Description 04/06/2023 2:30 PM EST Laboratory Laboratory [facility] [address] [place] [phone] [facility] 200 [facility] [place] [address] Arrived Allergies Active Allergy Reactions Criticality Noted Date Comments Amoxicillin-Pot Clavulanate Nausea/vomiting 01/2020 Bactrim Nausea/vomiting Medium 01/28/2010 Clarithromycin Nausea/vomiting 09/15/2007 documented as of this encounter (statuses as of 04/06/2023) Medications Medication Sig Dispensed Refills Start Date End Date Status oxygen GAS Use 3 L/min(Oxygen) as directed at bedtime. During all periods of sleep. 1 Each 0 04/10/2015 Active Additional Information Patient taking differently: 2 L/min(Oxygen)Nasal cannula HS, During all periods of sleep., Informant: Patient, Reported on 07/29/2022 Triamcinolone Acetonide 0.5 % External Cream Apply [...] Kit 0 07/17/2021 Active OneTouch Delica Plus [id number] CHECK BLOOD SUGAR UP TO 4 TIMES DAILY E11.9 200 Each 1 05/30/2022 Active Fluticasone Propionate 50 MCG/ACT Nasal Suspension (Flonase) Administer 2 Sprays into each nostril in the morning. 16 g 5 08/20/2022 Active Ondansetron HCl 4 MG Oral Tablet Take 1 Tablet by mouth every 6 hours as needed for Nausea. 30 Tablet 0 09/30/2022 Active oxyCODONE-Acetaminoph en 5-325 MG Oral Tablet (Percocet)Indications :Cervical spinal stenosis Take 1 Tablet by mouth every 6 hours as needed for Pain, Moderate. 30 Tablet 0 10/11/2022 Active OneTouch Verio In Vitro Strip (Glucose [...] mouth daily. 90 Tablet 1 01/28/2023 Active DULoxetine HCl 20 MG Oral Capsule Delayed Release Particles (Cymbalta) Take 1 Capsule by mouth in the morning. Do not cut, crush or chew. 30 Capsule 1 03/03/2023 Active Additional Information Patient not taking.Reported on 04/06/2023 Baclofen 10 MG Oral Tablet (Lioresal) Take 1 Tablet by mouth in the morning and 1 Tablet before bedtime. 180 Tablet 0 03/03/2023 Active Nortriptyline HCl 50 MG Oral Capsule (Pamelor) Take 1 Capsule by mouth at bedtime. 90 Capsule 3 03/10/2023 Active Albuterol Sulfate HFA 108 (90 Base) MCG/ACT Inhalation Aerosol SolutionIndications:C OPD, group B, by GOLD 2017 classification ([facility]) TAKE 2 PUFFS BY MOUTH EVERY 4 HOURS NEEDED FOR WHEEZE 18 g 2 03/23/2023 Active metFORMIN HCl 500 MG Oral Tablet (Glucophage) Take 1 tablet by mouth twice daily with meals 180 Tablet 1 04/03/2023 Active Atorvastatin Calcium 20 MG Oral Tablet (Lipitor) Take 1 Tablet by mouth daily. 90 Tablet 1 04/03/2023 Active Trelegy Ellipta 200-62.5-25 MCG/ACT Aerosol Powder Breath Activated (Fluticasone-Umeclidi nium-Vilanterol) inhale 1 inhalation by mouth daily 90 Each 3 04/03/2023 Active Magnesium Oxide 400 MG Oral Tablet Take 1 Tablet by mouth in the morning. 30 Tablet 11 04/06/2023 Active Riboflavin 400 MG Oral Tablet Take 1 Tablet by mouth in the morning. 30 Tablet 11 04/06/2023 Active Hospital, Clinic, or Other Facility Administered Medication Ordered Dose Route Frequency Start Date End Date Status Albuterol Sulfate (Proventil) (2.5 MG/3ML) 0.083% inhalation solution 2.5 mgIndications:Bronchiti s, complicated,SOB (shortness of breath) 2.5 mg NEBULIZER ONCE PRN 04/14/2022 04/14/2023 Act torrie documented as of this encounter (statuses as of 04/06/2023) Active Problems Problem Noted Date Diagnosed Date [...] as of this encounter (statuses as of 04/06/2023) Resolved Problems Problem Noted Date Diagnosed Date [...] as of this encounter (statuses as of 04/06/2023) Immunizations Name Administration Dates Next Due COVID-19 [...] Team (Late st Contact Info) Description 04/08/2023 8:20 AM EST Office Visit Family Practice [facility] [address] [address] Cordell Yi MD [address] [place] [address] 04/23/2023 9:20 AM EST Office Visit Sleep Disorders Ctr [facility] [address] [phone] Nilam Thayer, DO [address] [place] [address] 05/01/2023 10:00 AM EST Office Visit Otolaryngology [facility] [address] [address] Jerod Cowan, DO [address] [place] [address] 06/03/2023 9:20 AM EST Office Visit Family Practice [facility] 132 [facility] [place] [address] Monalisa Soto CRNP 132 [facility] [place] [address] 07/06/2023 10:00 AM EDT Office Visit [facility] [address] [facility] [place] [address] Obdulio Worthy MD 200 [facility] [place] [address] 08/24/2023 11:00 AM EDT Nurse Only Ancillary [facility] [place] [address] [place], Nurse Annual Wellness [facility] 132 [facility] [place] [address] Scheduled Procedures Name Priority Associated Diagnoses Date/Ti [...] ASSESSMENT COMPLETED IN PAST YEAR FOR COPD 03/03/2024 03/03/2023 COLONOSCOPY-EVERY 3 YRS AGES 18-100 05/09/2025 05/09/2022, 03/07/2019, 10/19/2007 DTaP,Tdap,and Td Vaccines (3 - Td or Tdap) 05/24/2028 05/24/2018, 10/23/2008 Pneumococcal Vaccine: 65+ Years Completed 01/27/2019, 03/21/2014 Zoster Vaccines Completed 11/07/2019, 06/16/2019 LUNG CANCER SCREENING - USE SMARTSET 09200 Completed 03/19/2021, 06/19/2020, 05/03/2019, Additional history exists [...] Documents on File Type Date Recorded Patient Outbound Supervisor Expl anation Advance Directives and Living Will 10/05/2021 ADVANCE DIRECTIVE / LIVING WILL Power of Powder Shoveler 10/05/2021 POWER OF A TTORNEY Care Teams Retail Leasing Agent Relationship Specialty Start Date End Date Cordell Yi MD [address] [place] [address] PCP - General Family Medicine 06/23/20 documented as of this encounter
--- OUTSIDE RECORDS SUMMARY | 2023-06-13 07:11 | External Medical Summary ---
Author Name Unknown Address Unknown Organization K01:[facility] [place] [address] [place] [address] Laboratory Report Ordering Provider Test Date Status SKYLERBELLE 04/06/2023 13:55:20 Final Observation Date Value Abnormality Reference (Units ) Status CRP, low-sensitivity 04/06/2023 13:55:20 21 Above high normal <=5 (mg/L) Final Performing Location LABORATORY [facility] - [address] [place] [address]
--- OUTSIDE RECORDS SUMMARY | 2023-06-13 07:11 | External Medical Summary | Summary of Care ---
Author Name Unknown Organization [facility] Address [address] [facility] [place] [address] Phone [phone] Care Team Providers Care Leather Whitener Name Role Phone Cordell Yi MD Primary Care Provider [phone] Reason for Referral * Medication Prior Authorization - Pending Review Specialty Diagnoses / Procedures Referred By Contjovanny t Referred To Contact Diagnoses Cervical spinal stenosis Cordell Yi MD [address] [place] [address] Referral ID Status Reason Start Date Expiration Date V isits Requested Visits Authorized [id number] Pending Review 999 999 Reason for Visit * Reason Comments Re-Check Discuss meds and blo od work results. Encounter Details Date Type Department Care Team (Latest Contact Info) Description 04/08/2023 8:20 AM EST Office Visit [facility] [address] [place] [address] Cordell Yi MD [address] [place] [address] Cervical spinal stenosis*; Type 2 diabetes mellitus with hemoglobin A1c goal of less than 8.0% ([facility]); Type 2 diabetes mellitus with diabetic peripheral angiopathy without gangrene, without long-term current use of insulin ([facility]); Dyslipidemia; COPD, group B, by GOLD 2017 classification ([facility]); HTN, goal below 130/80; Irritable bowel syndrome with constipation; Gastroesophageal reflux disease without esophagitis; Cervical myofascial pain syndrome; Migraine variant; Overweight (BMI 25.0-29.9); Depression with anxiety Allergies Active Allergy Reactions Criticality Noted Date [...] morning. Taking 2000 iu capsule. 0 Active opendorseTouch Verio w/Device KitIndications:Type 2 diabetes mellitus with hemoglobin A1c goal of less than 8.0% ([facility]) Use up to 4 times a day as needed E11.9 1 Kit 0 2 Active OneTouch Delica Plus Uqkzxv12X CHECK BLOOD SUGAR UP TO 4 TIMES [...] A1c goal of less than 8.0% ([facility]) USE UP TO 4 TIMES A DAY 400 Strip 0 3 Active Lubiprostone 24 MCG Oral Capsule (Amitiza) Take 1 Capsule by mouth in the morning and 1 Capsule before bedtime. with food.. 180 Capsule 3 3 Active Omeprazole 20 MG Oral Capsule Delayed Release (PriLOSEC)Indication s:Gastroesophageal reflux disease without esophagitis TAKE 1 CAPSULE BY MOUTH IN THE MORNING 1 HOUR BEFORE THE FIRST MEAL OF THE DAY 90 Capsule 1 3 Active Montelukast Sodium 10 MG Oral [...] group B, by GOLD 2017 classification ([facility]) TAKE 2 PUFFS BY [...] 2 days 20 Tablet 0 3 Active oxyCODONE-Acetaminop hen 5-325 MG Oral Tablet (Percocet)Indication s:Cervical spinal stenosis Take 1 Tablet by mouth every 6 hours as needed for Pain, Moderate. 30 Tablet 0 3 04/08/20 Discontinu ed(Refill) DULoxetine HCl 20 MG Oral Capsule Delayed Release Particles (Cymbalta) Take 1 Capsule by mouth in the morning. Do not cut, crush or chew. 30 Capsule 1 3 04/08/20 Discontinu ed(Medicat ion List Clean Up) Trelegy Ellipta 200-62.5-25 MCG/ACT Aerosol Powder Breath Activated (Fluticasone-Umeclid inium-Vilanterol) inhale 1 inhalation by mouth daily 90 Each 3 3 04/08/20 Discontinu ed(Medicat ion List Clean Up) Hospital, Clinic, or Other Facility Administered Medication [...] Sign Reading Time Taken Comments Blood Pressure 144/80 04/08/2023 8:01 AM EST Pulse 76 04/08/2023 8:01 AM EST Temperature - - Respiratory Rate - - Oxygen Saturation - - Inhaled Oxygen Concentration - - Weight 74.6 kg (164 lb 8 oz) 04/08/2023 8:01 AM EST Height - - Body Mass Index 28.24 03/10/2023 5:17 PM EST documented in this encounter Progress Notes * Cordell Yi MD - 04/08/2023 8:45 AM EST SUBJECTIVE: Jasmin Watters is a 77 year old female. Chief Complaint Patient presents with Re-Check Discuss meds and blood work results. HPI: Jasmin is a pleasant 77 year old female with multiple medical issues who is very familiar to me. She is here more or less for reassurance re: recent blood work that was ordered by neurology. Her CRP was a bit elevated but she had a normal sed rate. Reassured her she does not have temporal arteritis. In fact, she saw Dr. Worthy yesterday in regards to her chronic headaches. I re-iterated his recommendations. Patient Active Problem List Diagnosis Code Migraine variant G43.809 Type 2 diabetes mellitus with hemoglobin A1c goal of less than 8.0% ([facility]) E11.9 HTN, goal below 130/80 I10 Nocturnal hypoxemia G47.34 Gastroesophageal reflux disease without esophagitis K21.9 COPD, group B, by GOLD 2017 classification ([facility]) J44.9 Cervical myofascial pain syndrome M79.18 Dyslipidemia E78.5 Cervical spinal stenosis M48.02 Overweight (BMI 25.0-29.9) E66.3 Irritable bowel syndrome with constipation K58.1 Vitamin D insufficiency E55.9 Depression with anxiety F41.8 Type 2 diabetes mellitus with diabetic peripheral angiopathy without gangrene, without long-term current use of insulin (HCC) E11.51 Current Outpatient Medications Medication Sig Dispense Refill oxygen GAS Use 3 L/min(Oxygen) as directed at bedtime. During all periods of sleep. 1 Each 0 Diclofenac Sodium 1 % External Gel (Voltaren) Apply 2 g topically to affected area 2 times a day. Apply the effected are of the neck (Patient taking differently: Apply 2 g topically to affected area in the morning and 2 g before bedtime. Apply the effected are of the neck as needed.) 350 g 1 Cinegif Verio w/Device Kit Use up to 4 times a day as needed E11.9 1 Kit 0 Cinegif Delica Plus Iakwzz12J CHECK BLOOD SUGAR UP TO 4 TIMES DAILY E11.9 200 Each 1 Fluticasone Propionate 50 MCG/ACT Nasal Suspension (Flonase) Administer 2 Sprays into each nostril in the morning. 16 g 5 Ondansetron HCl 4 MG Oral Tablet Take 1 Tablet by mouth every 6 hours as needed for Nausea. 30 Tablet 0 Syndexa Pharmaceuticalsuch Verio In Vitro Strip (Glucose Blood) USE [...] Ellipta 200-62.5-25 MCG/ACT Aerosol Powder Breath Activated (Qlxkjtdohiq-Fiftatuhycys-Zbvvgfiquk) Inhale 1 Puff by mouth in the [...] Tablet by mouth daily. 90 Tablet 1 oxyCODONE-Acetaminophen 5-325 MG Oral Tablet (Percocet) Take 1 Tablet by mouth every 6 hours as needed for Pain, Moderate. 30 Tablet 0 predniSONE 20 MG Oral Tablet (Deltasone) Take 4 tablets by mouth daily for 2 days, 3 tabs daily for2 days, 2 tabs daily for 2 days, 1 tab daily for 2 days 20 Tablet 0 Triamcinolone Acetonide 0.5 % External Cream Apply topically to affected area 2 times a day. To affected area (eczema). (Patient taking differently: Apply topically to affected area 2 times a day. Toaffected area (eczema). As needed) 60 g 5 Vitamin D3 25 MCG (1000 UT) Oral Capsule Take 2 Capsules by mouth in the morning. Taking 2000 iu capsule. (Patient not taking: Reported on 04/06/2023) Magnesium Oxide 400 MG Oral Tablet Take 1 Tablet by mouth in the morning. (Patient not taking: Reported on 04/08/2023) 30 Tablet 11 Vitamin B-2 100 MG Oral Tablet (Riboflavin) Take 4 Tablets by mouth in the morning. (Patient not taking: Reported on 04/08/2023) 120 Tablet 11 Current Facility-Administered Medications Medication Dose Route Frequency Provider Last Rate Last Admin Albuterol Sulfate (Proventil) (2.5 MG/3ML) 0.083% inhalation solution 2.5 mg 2.5 mg Nebulizer Once PRN Patricia Gusman DO 2.5 mg at 05/01/22 1422 Allergy: Review of patient's allergies indicates: Allergen Reactions Bactrim Nausea/vomiting Augmentin [Amoxicillin-Pot Clavulanate] Nausea/vomiting Clarithromycin Nausea/vomiting OBJECTIVE: BP 144/80 | Pulse 76 | Wt 74.6 kg (164 lb 8 oz) | BMI 28.24 kg/m | BSA 1.84 m Gen: aao x 3, nad Neuro: no focal deficits Lungs: ctab Heart: rrr, no mrg ASSESSMENT AND PLAN: (M48.02) Cervical spinal stenosis (primary encounter diagnosis) Plan: oxyCODONE-Acetaminophen 5-325 MG Oral Tablet (Percocet) -continue meds from neuro (E11.9) Type 2 diabetes mellitus with hemoglobin A1c goal of less than 8.0% ([facility]) Plan: stable (E11.51) Type 2 diabetes mellitus with diabetic peripheral angiopathy without gangrene, without long-term current use of insulin ([facility]) Plan: stable (E78.5) Dyslipidemia Plan: stable (J44.9) COPD, group B, by GOLD 2017 classification ([facility]) Plan: stable --- follows with pulm (I10) HTN, goal below 130/80 Plan: @ goal (K58.1) Irritable bowel syndrome with constipation Plan: quiescent (K21.9) Gastroesophageal reflux disease without esophagitis Plan: quiescent (M79.18) Cervical myofascial pain syndrome Plan: continue rx (G43.809) Migraine variant Plan: continue rx (E66.3) Overweight (BMI 25.0-29.9) Plan: stable (F41.8) Depression with anxiety Plan: stable Follow up as needed. No other complaints were offered at this time. Cordell Yi MD documented in this encounter Plan of Treatment Upcoming Encounters Date Type Department Care Team (Late st Contact Info) Description 04/23/2023 9:20 AM EST Office Visit Sleep Disorders Ctr [facility] [address] [phone] Nilam Thayer, DO [address] [place] [address] 05/01/2023 10:00 AM EST Office Visit Otolaryngology [facility] [address] [address] Jerod Cowan, DO [address] [place] [address] 06/03/2023 9:20 AM EST Office Visit [facility] Practice [facility] [address] Monalisa Soto [facility] [address] 07/06/2023 10:00 AM EDT Office Visit Neurology [facility] 200 [facility] [place] [address] Obdulio Worthy MD 200 [facility] [place] [address] 08/24/2023 11:00 AM EDT Nurse Only Ancillary [facility] 132 [facility] [place] [address] [place], Nurse Annual Wellness [facility] [address] [facility] [address] Scheduled Procedures Name Priority Associated Diagnoses Date/Ti [...] 06/16/2019 LUNG CANCER SCREENING - USE SMARTSET 80[address] Completed 03/19/2021, 06/19/2020, 05/03/2019, Additional history exists Alpha-1 Antitrypsin Completed 02/23/2023 DXA Scan Discontinued GARDASIL-HPV IMMUNIZATION SERIES Aged Out No longer eligible based on patient's age to complete this topic MENINGOCOCCAL (MENACTRA/MENVEO) Aged Out No longer eligible based on patient's age to complete this topic documented as of this encounter Medical Devices Not on filedocumented as of this encounter Visit Diagnoses Diagnosis Cervical spinal stenosis- Primary Spinal stenosis in cervical region Type 2 diabetes mellitus with hemoglobin A1c goal of less than 8.0% ([facility]) Type 2 diabetes mellitus with diabetic peripheral angiopathy without gangrene, without long-term current use of insulin ([facility]) Dyslipidemia Other and unspecified hyperlipidemia COPD, group B, by GOLD 2017 classification ([facility]) HTN, goal below 130/80 Unspecified essential hypertension Irritable bowel syndrome with constipation Irritable bowel syndrome Gastroesophageal reflux disease without esophagitis Esophageal reflux Cervical myofascial pain syndrome Mylagia and myositis, unspecified Migraine variant Variants of migraine, not elsewhere classified, without mention of intractable migraine without mention of status migrainosus Overweight (BMI 25.0-29.9) Overweight Depression with anxiety Dysthymic disorder documented in this encounter Additional Health Concerns Infection Onset Date Last Indicated Resolved Time ESBL 02/23/2023 02/23/2023 documented as of this encounter Advance Directives Documents on File Type Date Recorded Patient Pageant Director Expl anation Advance Directives and Living Will 10/05/2021 ADVANCE DIRECTIVE / LIVING WILL Power of Gis Coordinator 10/05/2021 POWER OF A TTORNEY Care Teams Leather Whitener Relationship Specialty Start Date End Date Cordell Yi MD [address] [place] [address] PCP - General Family Medicine 06/23/20 documented as of this encounter"
--- OUTSIDE RECORDS SUMMARY | 2023-06-13 07:11 | External Medical Summary ---
Author Name Unknown Address Unknown Organization K01:[place] [place] [address] [facility] [address] [place] [address] Laboratory Report Ordering Provider Test Date Status SKYLERBELLE 04/06/2023 13:55:20 Final Observation Date Value Abnormality Reference (Units ) Status Erythrocyte sedimentation rate by Photometric method 04/06/2023 13:55:20 19 <30 (mm/hour) Final Performing Location [facility] [place] [address] [place] [address]
--- OUTSIDE RECORDS SUMMARY | 2023-06-13 07:11 | External Medical Summary | Summary of Care ---
Author Name Unknown Organization [facility] Address [address] [place] [facility] [place] [address] Phone [phone] Care Team Providers Care Heddler Name Role Phone Cordell Yi MD Primary Care Provider [phone] Reason for Visit * Reason Comments NEW PATIENT Migraine Headache Encounter Details Date Type Department Care Team (Late st Contact Info) Description 04/06/2023 1:40 PM EST Office Visit Neurology [facility] [address] [facility] [place] [address] Obdulio Worthy MD [address] [place] [address] Cervicalgia*; Migraine variant Allergies Active Allergy Reactions Criticality Noted Date [...] Kit 0 07/17/2021 Active OneTouch Delica Plus [id number] CHECK BLOOD SUGAR UP TO 4 TIMES [...] Tablet before bedtime. 180 Tablet 0 03/03/2023 4 Active Nortriptyline HCl 50 MG Oral Capsule (Pamelor) Take 1 Capsule by mouth at bedtime. 90 Capsule 3 03/10/2023 Active Albuterol Sulfate HFA 108 (90 Base) MCG/ACT Inhalation Aerosol SolutionIndications:C OPD, group B, by GOLD 2017 classification ([facility]) TAKE 2 PUFFS BY MOUTH EVERY 4 [...] mRNA, LNP-s, No Pre serve, 2-Dose Series (Cadigo) 06/25/2020,05/28/2020 Pneumococcal Conjugate Vacc, 13 Valent (Prevnar) [...] Sign Reading Time Taken Comments Blood Pressure 142/70 04/06/2023 1:23 PM EST Pulse 82 04/06/2023 1:23 PM EST Temperature 35.6 C (96.1 F) 04/06/2023 1:23 PM ES T Respiratory Rate 20 04/06/2023 1:23 PM EST Oxygen Saturation 96% 04/06/2023 1:23 PM EST Inhaled Oxygen Concentration - - Weight 69.9 kg (154 lb 1.6 oz) 04/06/2023 1:23 P M EST Height - - Body Mass Index 26.45 03/10/2023 5:17 PM EST documented in this encounter Progress Notes * Obdulio Worthy MD - 04/06/2023 1:51 PM EST CLINIC NOTES Neurology [facility] [place] [address] Jasmin Watters [id number] NEUROLOGY OUTPATIENT NOTE 04/06/2023 HISTORY: Jasmin is 76 years old and is referred to me by her primary care physician Dr. Clemons is a for evaluation of recent exacerbation of her underlying chronic headache syndrome which began at least 20-25 years ago was migrainous in nature episodic often associated with some neck discomfort and never really affiliated with any particular aura but over the years has resulted in a number of imaging studies including an MRI in 2009 which was negative for significant structural disease and because of some bitemporal tenderness over the past few years performance of C-reactive proteins and sedimentation rates all of which were unremarkable and did not lead to a temporal artery biopsy She does a history of neck trauma in the past which he thinks may have triggered these headaches but also has a strong positive family history for migraines in her mother so I think this is a mixtureof Genetics and perhaps post trauma and the issue is totally academic at this point In December while putting up some lattice she strained her neck had what sounds like a potential right upper cervical radicular syndrome lasting several days and when this resolved she was left witha occipital circumferential headache which was migratory sometimes is bitemporal sometimes occipital often hat like and in response to this her longstanding nortriptyline dose was dropped and she wasstarted on Cymbalta but became fearful about taking the medication due to reading about side effects and then was off all medications for several weeks. Dr. Edge put her back on nortriptyline abouta month ago raise the dose and she is only been on it now for a few weeks and thinks the headaches are little better but they still occur every day He also placed her on some baclofen but she did not take this on a regular basis was to take this at bedtime on a regular basis but did not. She often awakes in the morning with a headache and then as the day goes on headache disappears but she is concerned about what might be causing a In the past she has been treated with steroids for various issues and developed diabetes after a 3rd long course of steroids so she is quite reluctant to try a trial of steroids even though she is now monitoring herself for diabetes Other issues include hypertension for which she is taken an antihypertensive and she does talk about postural related orthostatic type dizziness but does not take her blood pressure all Otherwise she does not have any new active medical problems and despite the recent diagnosis of diabetes she really denies any symptoms of neuropathy in her feet or hands Past Medical History: Diagnosis Date Asthma, severity to be determined 1995 Asthma w/o status Benign neoplasm of colon 10/19/07 hyperplastic polyps--repeat 1-2 years Cervical myofascial pain syndrome 07/17/2021 Dyslipidemia 02/21/2022 Gastroesophageal reflux disease without esophagitis 06/25/2020 HTN, goal below 130/80 11/16/2014 Overweight (BMI 25.0-29.9) 05/26/2022 Tobacco use disorder Type 2 diabetes mellitus with hemoglobin A1c goal of less than 8.0% ([facility]) 08/03/2014 ICD-10 update of inactive term Vitamin D insufficiency 12/04/2022 Takes supplemental d3 Past Surgical History: Procedure Laterality Date DELIVERY 1979 and 1981 X 2 COLONOSCOPY W/ BLEEDING CONTROL hyperplastic polyps--repeat 1-2 years COLONOSCOPY, DIAGNOSTIC (RECTUM) 03/07/2019 hyperplastic polyp, diverticulosis, fair prep, repeat 3 yrs / [facility] COLONOSCOPY, DIAGNOSTIC (RECTUM) N/A 05/09/2022 [facility], colonoscopy, prep-fair , moderate diverticulosis in sigmoid colon & descending, internal hemorrhoids / no specimens collected / 3 year recall / CYSTOSCOPY 02/22/2008 EGD, FLEXIBLE, DIAGNOSTIC 07/02/2021 esophagitis, hiatal hernia / ESOPHAGOGASTRODUODENOSCOPY (EGD), FLEXIBLE, TRANSORAL, DIAGNOSTIC performed by Mary Avendaño MD at ENDOSCOPY [facility] FACE/SCALP SUBQ TUMOR REMOVAL, UNDER 2 CM Left 10/26/2017 10/26/2017 EXCISION FACE/SCALP SUBQ TUMOR, UNDER 2 CM performed by Gaurav Rodriguez MD at OR [facility] dx benign epidermoid cyst , ruptured and nflamed LAPAROSCOPY; CHOLECYSTECTOMY 10/17/2019 OTHER 1979 removed rib PROCEDURE - GENERAL Right 07/19/2021 excison of lesion on left side of neck REMOVAL OF TONSILS, AGE 12+ age 21 Tonsils Removal,12+ Y/O SURGICAL PROCEDURE ONLY Right 06/20/2022 Excision Right neck a cyst by DR. 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 During all periods of sleep. (Patient takingdifferently: Use 2 L/min(Oxygen) as directed at bedtime. During all periods of sleep.) 1 Each 0 Triamcinolone Acetonide 0.5 % [...] the neck as needed.) 350 g 1 GO Net SystemsTouch Verio w/Device Kit Use up to 4 times a day as needed E11.9 1 Kit 0 [employer] Net SystemsTouch Delica Plus [id number] CHECK BLOOD SUGAR UP TO 4 TIMES DAILY E11.9 200 Each 1 Fluticasone Propionate 50 MCG/ACT Nasal Suspension (Flonase) Administer 2 Sprays into each nostril in the morning. 16 g 5 Ondansetron HCl 4 MG Oral Tablet Take 1 Tablet by mouth every 6 hours as needed for Nausea. 30 Tablet 0 oxyCODONE-Acetaminophen 5-325 MG Oral Tablet (Percocet) Take 1 Tablet by mouth every 6 hours as needed for Pain, Moderate. 30 Tablet 0 OneTouch Verio In Vitro Strip (Glucose Blood) USE [...] Ellipta 200-62.5-25 MCG/ACT Aerosol Powder Breath Activated (Miskqghfscd-Poxcoiphsxst-Wsategtspk) Inhale 1 Puff by mouth in the [...] Tablet by mouth daily. 90 Tablet 1 Trelegy Ellipta 200-62.5-25 MCG/ACT Aerosol Powder Breath Activated (Usvqynndhqc-Fietztqmthwm-Vhoknmpnqa) inhale 1 inhalation by mouth daily 90 Each 3 Magnesium Oxide 400 MG Oral Capsule Take 1 Capsule by mouth in the morning. 30 Capsule 11 Riboflavin 400 MG Oral Tablet Take 1 Tablet by mouth in the morning. 30 Tablet 11 Vitamin D3 25 MCG (1000 UT) Oral Capsule Take 2 Capsules by mouth in the morning. Taking 2000 iu capsule. (Patient not taking: Reported on 04/06/2023) DULoxetine HCl 20 MG Oral Capsule Delayed Release Particles (Cymbalta) Take 1 Capsule by mouth in the morning. Do not cut, crush or chew. (Patient not taking: Reported on 04/06/2023) 30 Capsule 1 Current Facility-Administered Medications Medication Dose Route Frequency Provider Last Rate Last Admin Albuterol Sulfate (Proventil) (2.5 MG/3ML) 0.083% inhalation solution 2.5 mg 2.5 mg Nebulizer Once PRN Patricia Gusman, 2.5 mg at 05/01/22 1422 Review of patient's allergies indicates: Allergen Reactions Bactrim Nausea/vomiting Augmentin [Amoxicillin-Pot Clavulanate] Nausea/vomiting Clarithromycin Nausea/vomiting REVIEW OF SYSTEMS: With the exception of historical items included in the history of present illness above, a 12-point systems review was normal. PHYSICAL EXAM: BP 142/70 (BP Site: Right Arm, BP Position: Sitting, BP Cuff Size: Regular) | Pulse 82 | Temp 35.6 C (96.1 F) (Tympanic) | Resp 20 | Wt 69.9 kg (154 lb 1.6 oz) | SpO2 96% | BMI 26.45 kg/m | BSA 1.78 m She is awake alert oriented 3 spheres with normal eye movements facial motility strength facial sensation clear speech. Gait station coordination is normal no tremor tics choreiform activity drift orpronation sign and she can heel walk and toe walk and even tandem gait. Reflexes are all present and equal but a bit hypoactive in lower extremities toes downgoing no Dex signs are seen strengthtesting is normal specifically C5 through T1 innervated myotome groups and in lower extremities andsensation despite her diabetes again is intact to proprioception vibration and light touch she has no abnormal involuntary movements drift or pronation sign LABORATORY: I am going to obtain another sed rate and CRP just to be sure that at her age the re-emergence of chronic daily headaches does not indicate development of temporal arteritis but I franklydoubt it. IMAGING: I reviewed her cervical imaging studies from 2021 and find that there is plenty of room atthe craniocervical junction and there is really very minor if any cervical canal stenosis of the mid portion and not very much degenerative arthritic change for woman for age ASSESSMENT AND PLAN: Chronic daily headache syndrome likely transformed migraine possibly related to trauma in a woman with longstanding pre-existing migraine headaches of variable nature and duration Plan is to initiate riboflavin magnesium even though I doubt they are going to do very much to encourage her to take the baclofen 10 mg every night rather than once in a while, to continue the Pamelor and to get back to me in about a month for progress report. If her headaches persist at that time I may give her a very short course of prednisone she is now able to monitor her glucose levels and will be able to spot whether she is getting some hypoglycemic response and act accordingly She might be a candidate for with the injectable agents, possibly a trial of gabapentin and even a trial of low-dose Topamax for the hate to use as a woman of her age with a higher risk of cognitive impairment. Unfortunately she is really never tried a whole series of traditional migraine preventative treatments so before we get any of the injectable agents approved she would have to go through at least part of the insurance company required "scavenger can" of standard medications used to prevent migraines She will be seen back in clinic in 3 months and communicate by [employer] e-mail. I spent a total of 30-39 minutes (exact time 35 mins) on the date of service in preparation, delivery, and documentation of the care provided to Jasmin Santoro excluding any time spent in the performance of separately billed services. The above note was generated utilizing voice recognition technology may have spelling errors punctuation errors pronoun usage errors and syntax errors Obdulio Worthy MD documented in this encounter Nursing Notes * Gris Toro LPN - 04/06/2023 1:21 PM EST Patient verified identity by spelling of last name and date. Chief Complaint Patient presents with NEW PATIENT Migraine Headache documented in this encounter Plan of Treatment Upcoming Encounters Date Type Department Care Team (Late st Contact Info) Description 04/06/2023 2:30 PM EST Laboratory Laboratory [facility] [address] [place] [id number] [facility] [address] [place] [id number] Arrived 04/08/2023 8:20 AM EST Office Visit [facility] [address] [place] [address] Cordell Yi MD [address] [place] [address] 04/23/2023 9:20 AM EST Office Visit [facility] [address] [place] [phone] Nilam Thayer, DO [address] [place] [address] 05/01/2023 10:00 AM EST Office Visit Otolaryngology [facility] [address] [place] [address] Jerod Cowan, DO [address] [place] [address] 06/03/2023 9:20 AM EST Office Visit [facility] [address] [place] [address] Monalisa Soto CRNP [address] [place] [address] 07/06/2023 10:00 AM EDT Office Visit Neurology [facility] [address] [facility] [place], [place] [address] Obdulio Worthy MD [address] [place] [address] 08/24/2023 11:00 AM EDT Nurse Only Ancillary [facility] [address] [facility] [address] [facility], Nurse Annual Wellness [facility] [address] [facility] [place] [address] Pending Results Name Type Priority Associated Diagnoses Date /Time ERYTHROCYTE SEDIMENTATION RATE (ESR) Lab Routine Cervicalgia 04/06/2023 1:55 PM EST CRP (INFLAMMATORY MARKER) Lab Routine Cervicalgia 04/06/2023 1:55 PM EST Scheduled Procedures Name Priority Associated Diagnoses Date/Ti [...] 10/16/2021, Additional history exists B-12 02/24/2024 02/23/2023, 08/09/2021, 09/10/2020, Additional history exists GFR 02/24/2024 02/23/2023, 12/27, 02/17/2022, Additional history exists O2 ASSESSMENT COMPLETED IN PAST YEAR FOR COPD 03/03/2024 03/03/2023 COLONOSCOPY-EVERY 3 YRS AGES 18-100 05/09/2025 05/09/2022, 03/07/2019, 10/19/2007 DTaP,Tdap,and Td Vaccines (3 - Td or Tdap) 05/24/2028 05/24/2018, 10/23/2008 Pneumococcal Vaccine: 65+ Years Completed 01/27/2019, 03/21/2014 Zoster Vaccines Completed 11/07/2019, 06/16/2019 LUNG CANCER SCREENING - USE SMARTSET [id number] Completed 03/19/2021, 06/19/2020, 05/03/2019, Additional history exists Alpha-1 Antitrypsin Completed 02/23/2023 DXA Scan Discontinued GARDASIL-HPV IMMUNIZATION SERIES Aged Out No longer eligible based on patient's age to complete this topic MENINGOCOCCAL (MENACTRA/MENVEO) Aged Out No longer eligible based on patient's age to complete this topic documented as of this encounter Medical Devices Not on filedocumented as of this encounter Visit Diagnoses Diagnosis Cervicalgia- Primary Migraine variant Variants of migraine, not elsewhere classified, without mention of intractable migraine without mention of status migrainosus documented in this encounter Additional Health Concerns Infection Onset Date Last Indicated Resolved Time ESBL 02/23/2023 02/23/2023 documented as of this encounter Advance Directives Documents on File Type Date 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
[2023-06-13] MEDS ORDERED: NON-FORMULARY MEDICATION (Fluticasone-Umeclidin-Vilanter [Trelegy Ellipta] 200-62.5-25 mcg INH SCH (09:00)
[2023-06-13] MEDS: ATORVASTATIN 20 MG TAB PO SCH (09:17)
[2023-06-13] MEDS: PANTOprazole 40 MG TAB PO SCH (09:17)
[2023-06-13] MEDS: ASPIRIN 81 MG ECTAB PO SCH (09:17)
[2023-06-13] MEDS: FLUTICASONE FUROATE 200MCG 14 PUFFS/INHALER INH SCH (09:18)
[2023-06-13] MEDS: UMECLIDINIUM/VILANTEROL 62.5/25MCG 7 PUFFS/INHALER INH SCH (09:19)
--- NOTE | 2023-06-13 11:35 | Hospitalist Progress Note ---
Date of Service June 13, 2023 Assessment & Plan (1) NSTEMI (non-ST elevated myocardial infarction): (2) Acute heart failure with preserved ejection fraction (HFpEF): (3) Shortness of breath: Plan: Patient had presented with shortness of breath that has progressively worsened over the past 2 weeks and reported intermittent chest discomfort within the past week. She usually uses oxygen at 2 L/min at bedtime. She reported progressive symptoms despite outpatient prednisone therapy. On presentation was noted to have elevated high-sensitivity troponin of [address] depression in lead I and V4 to V6 Patient was started on IV heparin And aspirin. Home atorvastatin increased to 40 mg daily. Echocardiogram showed mild concentric LVH, small size inferior wall motion abnormality with hypokinesis of the basal segment of the inferior wall, EF of 55 to 60%, mild MR, grade 2 diastolic dysfunction Chest x-ray showed cardiomegaly with mild pulmonary edema and small bilateral pleural effusion. Patient got IV Lasix on admission with brisk diuresis Discussed with lawn care professional. Patient started on metoprolol succinate. Cardiology plan for cardiac catheterization on Thursday. Will keep n.p.o. past midnight tomorrow night (4) Diabetes mellitus, type 2: Plan: Stable. Hold metformin and continue with basal bolus insulin while hospitalized. (5) Migraine: Plan: Chronic Hold home ibuprofen at this time No headache at this time (6) Hypertension: Plan: Continue home losartan and monitor (7) Chronic obstructive pulmonary disease: Plan: Not in exacerbation. Cont home inhalers. (8) Nocturnal hypoxemia: Plan: Per records she is chronically on 2-3 LPM at night for treatment of COPD. Cont oxygen support as needed, with worsening hypoxia likely related to pleural effusions/pulm edema mentioned above. DVT ppx: heparin gtt Full Code Updated daughters at bedside I spent a total of 55 minutes coordinating, documenting and providing care for this patient excluding time spent in performance of separately billed services Admission and Anticipated Discharge Date Admission Date: June 12, 2023 Subjective Patient seen and examined. Reports shortness of breath is improved. Currently denies any chest pain Denies dizziness, headache, nausea, vomiting, abdominal pain, diarrhea, fever, chills, dysuria Reports leg swelling is improved with diuresis. Physical Exam Constitutional: + well hydrated; no acute distress Eyes: PERRL, conjunctivae normal, anicteric sclerae ENMT: external ear and nose normal, oropharynx normal Respiratory: normal respiratory effort; no respiratory distress Auscultation: + diminished lung sounds Cardiovascular: Rate/Rhythm: regular rate and regular rhythm S1 S2 Gastrointestinal (Abdomen): normal bowel sounds, soft, nontender, no hepatosplenomegaly Musculoskeletal: No pedal edema Neurologic: PERRL, EOMI, accommodation nl, no face palsy, no dysarthria Psychiatric: A+Ox3, euthymic affect Results & Data Results & Data Vital Signs (Past 12 Hours) Vital Signs Temp Pulse Resp BP Pulse Ox O2 Del Method O2 Flow Rate 06/13/23 08:21 36.8 C 86 18 115/56 L 92 Nasal Cannula 2 06/13/23 04:06 36.7 C 85 20 96/58 L 92 Nasal Cannula 2 06/13/23 01:33 Nasal Cannula 2 06/13/23 00:14 36.8 C 85 22 102/62 92 Nasal Cannula 2 Laboratory Results Abnormal lab results 06/12/23 06/12/23 06/13/23 Range/Units 21:05 Unknown 02:10 RBC (4.20-5.40) M/uL Hgb (12.0-16.0) g/dl Hct (37.0-47.0) % Sodium (136-145) mmol/L BUN/Creatinine Ratio (10-20) Glucose (70-99(Fasting)) mg/dl POC Glucose 279 H (70-99) mg/dl Hemoglobin A1c (4.5-5.6) % Troponin I High Sens 3514.2 H* 3179.9 H* (0-14) pg/ml 06/13/23 06/13/23 06/13/23 Range/Units 03:39 07:29 11:12 RBC 3.76 L (4.20-5.40) M/uL Hgb 11.0 L (12.0-16.0) g/dl Hct 33.7 L (37.0-47.0) % Sodium 134 L (136-145) mmol/L BUN/Creatinine Ratio 27.1 H (10-20) Glucose 184 H (70-99(Fasting)) mg/dl POC Glucose 145 H 167 H (70-99) mg/dl Hemoglobin A1c 8.4 H (4.5-5.6) % Troponin I High Sens 3056.0 H* (0-14) pg/ml
--- NOTE | 2023-06-13 11:59 | Cardiology Consultation ---
Date of Consultation June 13, 2023 Assessment & Plan (1) STEMI (ST elevation myocardial infarction): (2) Acute heart failure with preserved ejection fraction (HFpEF): Plan Report of chest x-ray reviewed, image reviewed independently. Patient with findings of mild pulmonary edema and small bilateral pleural effusions. EKG tracings performed on presentation and again this morning, total of 3 tracings reveal sinus rhythm, in the 80s. And age undetermined inferior infarct pattern limited to lead III is present with Q waves in lead III, that is relatively unchanged compared to a previous tracing dating back to September,. There however has been interval development of ST segment depression in the lateral leads, with 1 to 1.[address] depression in lead I, and V4V6. The patient's high-sensitivity troponin was elevated on presentation at 3, 508 and is since trended down to 3, 056 PG per mL. LDL cholesterol 101 mg/dL. Bedside echocardiogram performed 06/13/2023 and interpreted independently revealing a small sized wall motion abnormality of the basal inferior septum, preserved LVEF of 55-60%, mild aortic valve sclerosis without stenosis and grade II diastolic dysfunction. Medication therapy: Continue aspirin 81 mg daily, unfractionated heparin in fusion, atorvastatin 40 mg daily, losartan 25 mg daily at bedtime. Will wean topical nitroglycerin at this time and add low-dose metoprolol succinate 25 mg daily. Patient received a dose of furosemide 40 mg in the emergency room yesterday, will hold off on further diuretics today, will likely proceed with another dose on 06/14/2023. I think it is reasonable to advance patient's diet. No plans for emergent cardiac catheterization today given lack of current chest discomfort, will likely need to be performed this hospital stay. History of Present Illness Attending Physician: Izabella Marie MD History of Present Illness Jasmin Watters is a 77-year-old female seen in cardiology consultation per the request of Dr. Benedict for evaluation of suspected non-ST segment elevation myocardial infarction. Patient does not have any past cardiac history. She follows with pulmonary medicine, Dr. Riley, with history of COPD and severe persistent asthma. Although she has an oxygen concentrator at home, she has not utilized it as of recently during the day, only at night. I just there is she presented via the emergency department yesterday 06/12/2023 with chief complaint of shortness of breath. She notes that the shortness of breath has been progressive over the last 2 weeks getting worse last weekend, a week ago. She also described having intermittent chest discomfort a week ago but none since. At the time my assessment in room 207, patient was resting comfortably, with no complaints. Denies resting shortness of breath denies chest discomfort. Telemetry reveals sinus rhythm in the 80s. Allergies Allergy/AdvReac Type Severity Reaction Status Date / Time Bactrim Allergy Intermediate GI SYMPTOMS Verified 12/11/16 20:08 sulfamethoxazole AdvReac Intermediate GI SYMPTOMS Verified 03/31/23 14:00 trimethoprim AdvReac Intermediate GI SYMPTOMS Verified 03/31/23 14:00 clarithromycin AdvReac Mild NAUSEA AND Verified 03/31/23 14:00 VOMITING Home Medications Medication Instructions Recorded Confirmed Type losartan 25 mg tablet 25 mg PO HS 03/01/19 06/12/23 History ibuprofen 200 mg tablet (Advil) 200 mg PO QID PRN Pain 03/07/19 06/12/23 History ipratropium 0.5 mg-albuterol 3 mg 3 ml inhalation Q6H PRN wheezing, 06/21/19 06/12/23 Rx (2.5 mg base)/3 mL nebulization dyspnea, cough #90 mL soln oxycodone-acetaminophen 5 mg-325 1 tab PO Q6H PRN pain #20 tabs 10/17/19 06/12/23 Rx mg tablet (Percocet) omeprazole 20 mg tablet,delayed 20 mg PO QAM 06/22/20 06/12/23 History release Oxygen Home [id number] #1 ea 06/05/22 06/12/23 Rx metformin 500 mg tablet 500 mg PO BID 03/31/23 06/12/23 History nortriptyline 10 mg capsule 50 mg PO HS 03/31/23 06/12/23 History albuterol sulfate 90 mcg/actuation 2 puff inhalation Q4H PRN Wheezing 04/03/23 06/12/23 Rx aerosol inhaler #6.7 grams fluticasone fur. 200 mcg-umeclid 1 inh inhalation DAILY #90 puffs 04/03/23 06/12/23 Rx 62.5 mcg-vilant 25 mcg inhalat.powder (Trelegy Ellipta) atorvastatin 20 mg tablet 20 mg PO QAM 06/12/23 06/12/23 History baclofen 10 mg tablet 10 mg PO HS 06/12/23 06/12/23 History lubiprostone 24 mcg capsule 24 mcg PO BID 06/12/23 06/12/23 History (Amitiza) prednisone 10 mg tablet See Rx Instructions .Route .COMPLEX 06/12/23 06/12/23 History Patient History Medical History Nocturnal hypoxemia Cervical spinal stenosis per [facility] record Cervical myofascial pain syndrome per s record GERD (gastroesophageal reflux disease) Asthma-COPD overlap syndrome inh and nebulizer prn Thoracic outlet syndrome hx Heartburn hx Diabetes mellitus, type 2 oral med Migraine hx On home oxygen therapy 3L/MIN NC HS + WHILE SLEEPING Chronic obstructive pulmonary disease Hypertension Surgical History History of open reduction and internal fixation (ORIF) procedure 1973-fix compound fx rt leg. Hx laparoscopic cholecystectomy History of esophagogastroduodenoscopy (EGD) History of removal of cyst behind left ear History of oral surgery gum sx History of tooth extraction all top teeth; getting 7 teeth removed on 05/08/22 History of surgery RIB REMOVAL FOR THORACIC OUTLET SYNDROME History of section X 2 History of tonsillectomy History of colonoscopy Family History Other No family history of adverse response to anesthesia Social History Smoking Status: Former smoker Tobacco Type: Cigarettes Age Started Using Tobacco: 19; Age Quit Using Tobacco: 69; packs per day: 1; Second Hand Exposure: No; Do You Dip or Chew Tobacco: No; Tobacco Cessation Education Requested by Patient: No Hx Alcohol Use: No Hx Substance Use: No Preferred Language: Scottish Communication Ability: Effective Croze Cutter Required: No Beliefs That Will Affect Care: None Current Living Situation: Alone Other Information That Helps Us Care for You: No Feels Safe at Home: Yes Safety Concerns: Feels Safe At This Time Assistive Devices: Glasses and Oxygen - at Night Review of Systems Review of Systems: All systems reviewed & are unremarkable except as noted in HPI & below Physical Exam Constitutional: WD/WN, vitals as above Respiratory: no cough and not tachypneic Auscultation: + diminished lung sounds (Mildly decreased breath sounds bilaterally at the bases) and + wheezes (mild diffuse inspiratory wheezing.); no crackles Cardiovascular: Rate/Rhythm: regular rate and regular rhythm Heart Sounds: + murmur (1/6 systolic murmur) Extremities: no edema Gastrointestinal (Abdomen): normal bowel sounds, soft, nontender, no hepatosplenomegaly Results & Data Vital Signs (Past 12 Hours) Vital Signs Temp Pulse Resp BP Pulse Ox O2 Del Method O2 Flow Rate 06/13/23 08:21 36.8 C 86 18 115/56 L 92 Nasal Cannula 2 06/13/23 04:06 36.7 C 85 20 96/58 L 92 Nasal Cannula 2 06/13/23 01:33 Nasal Cannula 2 06/13/23 00:14 36.8 C 85 22 102/62 92 Nasal Cannula 2 Laboratory Results Cardiac Enzymes 06/12/23 06/12/23 06/12/23 Range/Units 15:08 21:05 Unknown AST 14 (13-39) U/L Troponin I High Sens 3508.2 H* 3514.2 H* 3179.9 H* (0-14) pg/ml B-Natriuretic Peptide 1158 H (0-100) pg/ml 06/13/23 Range/Units 03:39 AST (13-39) U/L Troponin I High Sens 3056.0 H* (0-14) pg/ml B-Natriuretic Peptide (0-100) pg/ml Coagulation 06/12/23 06/12/23 Range/Units 15:08 21:05 PT 10.9 (9.0-12.0) Seconds APTT 26 (21-31) Seconds B-Natriuretic Peptide 1158 H (0-100) pg/ml CBC 06/12/23 06/13/23 Range/Units 15:08 03:39 WBC 15.24 H 8.96 (4.8-10.8) K/ul RBC 3.92 L 3.76 L (4.20-5.40) M/uL Hgb 11.5 L 11.0 L (12.0-16.0) g/dl Hct 35.6 L 33.7 L (37.0-47.0) % Plt Count 383 346 (130-400) K/uL Neut # (Auto) 12.88 H (1.40-6.50) K/uL Lymph # (Auto) 1.15 L (1.20-3.40) K/uL Tift # (Auto) 1.02 H (0.11-0.59) K/uL Eos # (Auto) 0.07 (0.00-0.50) K/uL Baso # (Auto) 0.05 (0.00-0.20) K/uL Comprehensive Metabolic Panel 06/12/23 06/13/23 Range/Units 15:08 03:39 Sodium 136 134 L (136-145) mmol/L Potassium 4.0 3.7 (3.5-5.1) mmol/L Chloride 101 99 (98-107) mmol/L Carbon Dioxide 27 27 (21-32) mmol/L BUN 23 23 (6-23) mg/dl Creatinine 0.75 0.85 (0.6-1.2) mg/dl Glucose 168 H 184 H (70-99(Fasting)) mg/dl Calcium 9.3 8.6 (8.6-10.3) mg/dl AST 14 (13-39) U/L ALT 21 (7-52) U/L Alkaline Phosphatase 130 H (34-104) U/L Total Protein 6.9 (6.0-8.3) gm/dl Albumin 3.6 (3.4-5.0) gm/dl
[2023-06-13] MEDS: METOPROLOL SUCC 25MG EXT REL TAB PO SCH (12:38)
--- NOTE | 2023-06-13 16:24 | Electrocardiogram Report ---
Test Reason : Blood Pressure : / mmHG Vent. Rate : 089 BPM Atrial Rate : 089 BPM P-R Int : 120 ms QRS Dur : 096 ms QT Int : 340 ms P-R-T Axes : 052 -16 081 degrees QTc Int : 413 ms Normal sinus rhythm Inferior infarct (cited on or before 12-JUN-2023) Marked ST abnormality, possible lateral subendocardial injury Abnormal ECG When compared with ECG of 12-JUN-2023 14:59, Nonspecific T wave abnormality has replaced inverted T waves in Inferior leads Confirmed by Paras Gonzalez ([id number]) on 06/13/2023 4:24:35 PM Referred By: REFERRED SELF Confirmed By:Paras Gonzalez
--- NOTE | 2023-06-13 17:47 | Electrocardiogram Report ---
Test Reason : Blood Pressure : / mmHG Vent. Rate : 086 BPM Atrial Rate : 086 BPM P-R Int : 120 ms QRS Dur : 096 ms QT Int : 374 ms P-R-T Axes : 059 -10 074 degrees QTc Int : 447 ms Normal sinus rhythm Inferior infarct (cited on or before 12-JUN-2023) Abnormal ECG When compared with ECG of 12-JUN-2023 16:32, (unconfirmed) Questionable change in initial forces of Inferior leads Confirmed by Paras Gonzalez ([id number]) on 06/13/2023 5:46:39 PM Referred By: REFERRED SELF Confirmed By:Paras Gonzalez
--- NOTE | 2023-06-13 18:16 | Electrocardiogram Report ---
Test Reason : Blood Pressure : / mmHG Vent. Rate : 084 BPM Atrial Rate : 084 BPM P-R Int : 120 ms QRS Dur : 096 ms QT Int : 366 ms P-R-T Axes : 059 -15 095 degrees QTc Int : 432 ms Normal sinus rhythm Cannot rule out Inferior infarct (cited on or before 12-JUN-2023) Abnormal ECG When compared with ECG of 12-JUN-2023 21:07, (unconfirmed) No significant change was found Confirmed by Paras Gonzalez ([id number]) on 06/13/2023 6:16:19 PM Referred By: REFERRED SELF Confirmed By:Paras Gonzalez
[2023-06-14 05:21] LABS: Hematocrit (blood only) 34.4 % (37.0-47.0); Hemoglobin 11.4 g/dl (12.0-16.0); Mean Corpuscular Hemoglobin 29.6 pg (25.0-34.0); Mean Corpuscular Hgb Conc 33.1 g/dL (32.0-36.0); Mean Corpuscular Volume 89.4 fL (80.0-100.0); Mean Platelet Volume 9.5 fL (9.4-12.4); Platelet Count 368 K/uL (130-400); RDW Coefficient of Variation 12.8 % (11.5-14.5); RDW Standard Deviation 41.7 fL (36.4-46.3); Red Blood Count 3.85 M/uL (4.20-5.40); White Blood Count 7.58 K/ul (4.8-10.8)
[2023-06-14 05:42] LABS: BUN Creatinine Ratio 21.5 (10-20); Calcium 8.7 mg/dl (8.6-10.3); Creatinine Clr Calc Pharmacy 51.8 ml/min; Est GFR (African American) 69.2 ml/min; Est GFR (Non-African American) 59.7 ml/min; Magnesium 1.9 mg/dl (1.7-2.4); Phosphorus 3.5 mg/dl (2.5-4.9); Potassium 4.1 mmol/L (3.5-5.1)
[2023-06-14 05:53] LABS: ANTI-Xa, UFH(UnfractionatedHep 0.18 IU/ml (0.3-0.7)
[2023-06-14] MEDS: HEPARIN SOD (PORCINE) 1000 UNIT/ML IV ONE (07:16)
[2023-06-14] MEDS: ATORVASTATIN 40 MG TAB PO SCH (08:19)
[2023-06-14 13:36] LABS: ANTI-Xa, UFH(UnfractionatedHep 0.46 IU/ml (0.3-0.7)
--- NOTE | 2023-06-14 13:57 | Hospitalist Progress Note ---
Date of Service June 14, 2023 Assessment & Plan (1) NSTEMI (non-ST elevated myocardial infarction): (2) Acute heart failure with preserved ejection fraction (HFpEF): (3) Shortness of breath: Plan: Patient had presented with shortness of breath that has progressively worsened over the past 2 weeks and reported intermittent chest discomfort within the past week. She usually uses oxygen at 2 L/min at bedtime. She reported progressive symptoms despite outpatient prednisone therapy. On presentation was noted to have elevated high-sensitivity troponin of [address] depression in lead I and V4 to V6 Patient was started on IV heparin And aspirin. Home atorvastatin increased to 40 mg daily. Echocardiogram showed mild concentric LVH, small size inferior wall motion abnormality with hypokinesis of the basal segment of the inferior wall, EF of 55 to 60%, mild MR, grade 2 diastolic dysfunction Chest x-ray showed cardiomegaly with mild pulmonary edema and small bilateral pleural effusion. Patient got IV Lasix on admission with brisk diuresis Discussed with drafter topographical. Patient was started on metoprolol succinate 25mg. Cardiology plan for cardiac catheterization tomorrow. Will keep n.p.o. past midnight (4) Diabetes mellitus, type 2: Plan: Stable. Hold metformin and continue with basal bolus insulin while hospitalized. (5) Migraine: Plan: Chronic Hold home ibuprofen at this time No headache at this time (6) Hypertension: Plan: Continue home losartan and monitor (7) Chronic obstructive pulmonary disease: Plan: Not in exacerbation. Cont home inhalers. (8) Nocturnal hypoxemia: Plan: Per records she is chronically on 2-3 LPM at night for treatment of COPD. Cont oxygen support as needed, with worsening hypoxia likely related to pleural effusions/pulm edema mentioned above. DVT ppx: heparin gtt Full Code Updated daughters at bedside I spent a total of 45 minutes coordinating, documenting and providing care for this patient excluding time spent in performance of separately billed services Admission and Anticipated Discharge Date Admission Date: June 12, 2023 Subjective Patient seen and examined. Reports feeling better Reports mild cough Reports shortness of breath is improved. Denies any chest pain Denies dizziness, headache, nausea, vomiting, abdominal pain, diarrhea, fever, chills, dysuria Physical Exam Constitutional: + well hydrated; no acute distress Eyes: PERRL, conjunctivae normal, anicteric sclerae ENMT: external ear and nose normal, oropharynx normal Respiratory: normal respiratory effort; no respiratory distress Auscultation: + diminished lung sounds Cardiovascular: Rate/Rhythm: regular rate and regular rhythm S1 S2 Gastrointestinal (Abdomen): normal bowel sounds, soft, nontender, no hepatosplenomegaly Musculoskeletal: No pedal edema Neurologic: PERRL, EOMI, accommodation nl, no face palsy, no dysarthria Psychiatric: A+Ox3, euthymic affect Results & Data Results & Data Vital Signs (Past 12 Hours) Vital Signs Temp Pulse Resp BP Pulse Ox O2 Del Method O2 Flow Rate 06/14/23 11:40 37.2 C 80 22 134/76 90 Nasal Cannula 1.5 06/14/23 11:24 Nasal Cannula 2 06/14/23 08:00 36.3 C L 22 L 20 99/65 L 90 Nasal Cannula 1.5 06/14/23 03:17 37.4 C 80 18 99/49 L 91 Nasal Cannula 2 Laboratory Results Abnormal lab results 06/13/23 06/13/23 06/14/23 Range/Units 16:25 21:11 04:27 RBC 3.85 L (4.20-5.40) M/uL Hgb 11.4 L (12.0-16.0) g/dl Hct 34.4 L (37.0-47.0) % Heparin Anti-Xa, Unfract 0.18 L (0.3-0.7) IU/ml Sodium 135 L (136-145) mmol/L BUN/Creatinine Ratio 21.5 H (10-20) Glucose 172 H (70-99(Fasting)) mg/dl POC Glucose 120 H 133 H (70-99) mg/dl 06/14/23 06/14/23 06/14/23 Range/Units 07:16 11:37 15:14 RBC (4.20-5.40) M/uL Hgb (12.0-16.0) g/dl Hct (37.0-47.0) % Heparin Anti-Xa, Unfract (0.3-0.7) IU/ml Sodium (136-145) mmol/L BUN/Creatinine Ratio (10-20) Glucose (70-99(Fasting)) mg/dl POC Glucose 152 H 133 H 197 H (70-99) mg/dl
--- NOTE | 2023-06-14 15:50 | Cardiology Progress Note ---
Date of Service June 14, 2023 Assessment & Plan (1) STEMI (ST elevation myocardial infarction): (2) Acute heart failure with preserved ejection fraction (HFpEF): Plan High-sensitivity troponin levels:3,508 -->3,514-->3,179-->3,056 pg/ml. EKG 06/14/2023 interpreted independently: Sinus rhythm at 71 bpm, age- indeterminate inferior infarct pattern noted, subtle lateral ST depression, slightly improved compared to previous. LDL cholesterol 101 mg/dL. Bedside echocardiogram performed 06/13/2023 and interpreted independently revealing a small sized wall motion abnormality of the basal inferior septum, preserved LVEF of 55-60%, mild aortic valve sclerosis without stenosis and grade II diastolic dysfunction. Medication therapy: Continue aspirin 81 mg daily, unfractionated heparin infusion, atorvastatin 40 mg daily, losartan 25 mg daily at bedtime, metoprolol succinate 25 mg daily. Volume status stable. Will hold off on diuretic therapy at present. Will make n.p.o. after midnight. Hold heparin at 4 AM on 06/15/2023 for planned cardiac catheterization 06/15/2023 when scheduling allows. Patient agreeable to procedure. Admission and Anticipated Discharge Date Admission Date: June 12, 2023 Subjective Patient seen in cardiology follow-up of chest pain, non-STEMI. She feels comfortable. Heparin infusion ongoing. Remains on supplemental oxygen, 1.5 L/min nasal cannula oxygen. Telemetry reveals sinus rhythm with rate in the 80s. Physical Exam Constitutional: WD/WN, vitals as above Respiratory: no cough and not tachypneic Auscultation: + diminished lung sounds (Mildly decreased breath sounds bilaterally at the bases) and + wheezes (mild diffuse inspiratory wheezing.); no crackles Cardiovascular: Rate/Rhythm: regular rate and regular rhythm Heart Sounds: + murmur (1/6 systolic murmur) Extremities: no edema Gastrointestinal (Abdomen): normal bowel sounds, soft, nontender, no hepatosplenomegaly Results & Data Vital Signs (Past 12 Hours) Vital Signs Temp Pulse Pulse Resp BP Pulse Ox O2 Del Method 06/14/23 11:40 37.2 C 80 22 134/76 90 Nasal Cannula 06/14/23 11:24 Nasal Cannula 06/14/23 08:00 75 06/14/23 08:00 36.3 C L 22 L 20 99/65 L 90 Nasal Cannula O2 Flow Rate 06/14/23 11:40 1.5 06/14/23 11:24 2 06/14/23 08:00 06/14/23 08:00 1.5 Laboratory Results CBC 06/14/23 Range/Units 04:27 WBC 7.58 (4.8-10.8) K/ul RBC 3.85 L (4.20-5.40) M/uL Hgb 11.4 L (12.0-16.0) g/dl Hct 34.4 L (37.0-47.0) % Plt Count 368 (130-400) K/uL Comprehensive Metabolic Panel 06/14/23 Range/Units 04:27 Sodium 135 L (136-145) mmol/L Potassium 4.1 (3.5-5.1) mmol/L Chloride 100 (98-107) mmol/L Carbon Dioxide 28 (21-32) mmol/L BUN 20 (6-23) mg/dl Creatinine 0.93 (0.6-1.2) mg/dl Glucose 172 H (70-99(Fasting)) mg/dl Calcium 8.7 (8.6-10.3) mg/dl Intake and Output 06/14/23 06/14/23 06/14/23 06:59 14:59 22:59 Intake Total 363.033 / 705.866 Balance 363.033 / 705.866 Intake: IV 243.033 / 585.866 Heparin Sodium/Dextrose 25,000 243.033 / 585.866 units In 500 ml @ 1,300 UNITS/ HR 26 mls/hr IV .[id number] [facility] Rx #:[id number] Oral 120 / 120 Other: # Unmeasured Voids 1 Weight 77.5 kg Weight Measurement Method Built in [facility]
[2023-06-15] MEDS: STOP HEPARIN DRIP ORDER ONE (03:50)
[2023-06-15 06:23] LABS: Hemoglobin 11.5 g/dl (12.0-16.0); Mean Corpuscular Hgb Conc 31.9 g/dL (32.0-36.0); Mean Corpuscular Volume 90.7 fL (80.0-100.0); Mean Platelet Volume 9.1 fL (9.4-12.4); Platelet Count 378 K/uL (130-400); RDW Coefficient of Variation 12.4 % (11.5-14.5); RDW Standard Deviation 41.2 fL (36.4-46.3); Red Blood Count 3.97 M/uL (4.20-5.40); White Blood Count 7.59 K/ul (4.8-10.8)
[2023-06-15 06:43] LABS: BUN Creatinine Ratio 18.4 (10-20); Calcium 8.6 mg/dl (8.6-10.3); Est GFR (African American) 61.2 ml/min; Est GFR (Non-African American) 52.8 ml/min; Potassium 4.4 mmol/L (3.5-5.1)
--- NOTE | 2023-06-15 06:43 | Electrocardiogram Report ---
Test Reason : Blood Pressure : / mmHG Vent. Rate : 071 BPM Atrial Rate : 071 BPM P-R Int : 126 ms QRS Dur : 106 ms QT Int : 384 ms P-R-T Axes : 057 -17 034 degrees QTc Int : 417 ms Normal sinus rhythm Cannot rule out Inferior infarct (cited on or before 12-JUN-2023) Abnormal ECG When compared with ECG of 13-JUN-2023 06:04, No significant change Confirmed by Paras Gonzalez ([id number]) on 06/15/2023 6:42:56 AM Referred By: REFERRED SELF Confirmed By:Paras Gonzalez
[2023-06-15 07:13] LABS: ANTI-Xa, UFH(UnfractionatedHep < 0.10 IU/ml (0.3-0.7)
--- NOTE | 2023-06-15 09:18 | Cardiology Progress Note ---
Date of Service June 15, 2023 Assessment & Plan (1) STEMI (ST elevation myocardial infarction): (2) Acute heart failure with preserved ejection fraction (HFpEF): Plan High-sensitivity troponin levels:3,508 -->3,514-->3,179-->3,056 pg/ml. EKG 06/14/2023 interpreted independently: Sinus rhythm at 71 bpm, age- indeterminate inferior infarct pattern noted, subtle lateral ST depression, slightly improved compared to previous. LDL cholesterol 101 mg/dL. Bedside echocardiogram performed 06/13/2023 and interpreted independently revealing a small sized wall motion abnormality of the basal inferior septum, preserved LVEF of 55-60%, mild aortic valve sclerosis without stenosis and grade II diastolic dysfunction. Medication therapy: Continue aspirin 81 mg daily, unfractionated heparin infusion, atorvastatin 40 mg daily, losartan 25 mg daily at bedtime, metoprolol succinate 25 mg daily. Volume status stable. Will hold off on diuretic therapy at present. Heparin infusion held as of 4 am on 06/15/23. Cardiac cath when scheduling permits. Patient agreeable to procedure. Admission and Anticipated Discharge Date Admission Date: June 12, 2023 Subjective Patient seen in cardiology follow up. Rested well. Denies chest pain or current SOB. Telemetry reveals SR in the 70s. Physical Exam Constitutional: WD/WN, vitals as above Respiratory: no cough and not tachypneic Auscultation: + diminished lung sounds (Mildly decreased breath sounds bilaterally at the bases); no crackles and no wheezes Cardiovascular: Rate/Rhythm: regular rate and regular rhythm Heart Sounds: + murmur (1/6 systolic murmur) Extremities: no edema Gastrointestinal (Abdomen): normal bowel sounds, soft, nontender, no hepatosplenomegaly Results & Data Vital Signs (Past 12 Hours) Vital Signs Temp Pulse Pulse Resp BP Pulse Ox O2 Del Method 06/15/23 08:37 36.7 C 77 18 137/65 92 Nasal Cannula 06/15/23 03:24 37.0 C 81 17 101/59 L 91 Nasal Cannula 06/15/23 02:00 77 06/14/23 23:49 36.9 C 82 17 124/54 L 93 Nasal Cannula 06/14/23 23:38 Nasal Cannula O2 Flow Rate 06/15/23 08:37 2.0 06/15/23 03:24 2 06/15/23 02:00 06/14/23 23:49 2 06/14/23 23:38 1.5 Laboratory Results CBC 06/15/23 Range/Units 05:33 WBC 7.59 (4.8-10.8) K/ul RBC 3.97 L (4.20-5.40) M/uL Hgb 11.5 L (12.0-16.0) g/dl Hct 36.0 L (37.0-47.0) % Plt Count 378 (130-400) K/uL Comprehensive Metabolic Panel 06/15/23 Range/Units 05:33 Sodium 137 (136-145) mmol/L Potassium 4.4 (3.5-5.1) mmol/L Chloride 102 (98-107) mmol/L Carbon Dioxide 28 (21-32) mmol/L BUN 19 (6-23) mg/dl Creatinine 1.03 (0.6-1.2) mg/dl Glucose 159 H (70-99(Fasting)) mg/dl Calcium 8.6 (8.6-10.3) mg/dl Intake and Output 06/14/23 06/15/23 06/15/23 22:59 06:59 14:59 Intake Total 496.967 / 758.267 261.3 / 758.267 Balance 496.967 / 758.267 261.3 / 758.267 Intake: IV 256.967 / 518.267 261.3 / 518.267 Heparin Sodium/Dextrose 25,000 256.967 / 518.267 261.3 / 518.267 units In 500 ml @ 1,300 UNITS/ HR 26 mls/hr IV .[id number] [facility] Rx #:[id number] Oral 240 / 240 Other: # Unmeasured Voids 1 1 Weight 78.2 kg Weight Measurement Method Built in [facility]
--- NOTE | 2023-06-15 10:59 | Hospitalist Progress Note ---
Date of Service June 15, 2023 Assessment & Plan (1) NSTEMI (non-ST elevated myocardial infarction): (2) Acute heart failure with preserved ejection fraction (HFpEF): (3) Shortness of breath: Plan: Patient had presented with shortness of breath that has progressively worsened over the past 2 weeks and reported intermittent chest discomfort within the past week. She usually uses oxygen at 2 L/min at bedtime. She reported progressive symptoms despite outpatient prednisone therapy. On presentation was noted to have elevated high-sensitivity troponin of [address] depression in lead I and V4 to V6 Patient was started on IV heparin And aspirin. Home atorvastatin increased to 40 mg daily. Echocardiogram showed mild concentric LVH, small size inferior wall motion abnormality with hypokinesis of the basal segment of the inferior wall, EF of 55 to 60%, mild MR, grade 2 diastolic dysfunction Chest x-ray showed cardiomegaly with mild pulmonary edema and small bilateral pleural effusion. 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 Recs noted Patient was started on metoprolol succinate 25mg. Plan for cardiac catheterization today Will follow up procedure Wean oxygen Incentive spirometry/flutter Will get 2 step prior to dc (4) Diabetes mellitus, type 2: Plan: Stable. Hold metformin and continue with basal bolus insulin/ISS while hospitalized. (5) Migraine: Plan: Chronic Hold home ibuprofen at this time No headache at this time (6) Hypertension: Plan: Continue home losartan and monitor (7) Chronic obstructive pulmonary disease: Plan: Not in exacerbation. Cont home inhalers. (8) Nocturnal hypoxemia: Plan: Per records she is chronically on 2-3 LPM at night for treatment of COPD. Also reports she uses this for her migraine headache as well DVT ppx: Off heparin gtt for procedure Full Code Updated daughter at bedside I spent a total of 45 minutes coordinating, documenting and providing care for this patient excluding time spent in performance of separately billed services Admission and Anticipated Discharge Date Admission Date: June 12, 2023 Subjective Patient seen and examined. Reports feeling better each day Reports mild cough Reports shortness of breath has resolved Denies any chest pain Denies any other complaints Physical Exam Constitutional: + well hydrated; no acute distress Eyes: PERRL, conjunctivae normal, anicteric sclerae ENMT: external ear and nose normal, oropharynx normal Respiratory: normal respiratory effort; no respiratory distress Auscultation: + diminished lung sounds Cardiovascular: Rate/Rhythm: regular rate and regular rhythm S1 S2 Gastrointestinal (Abdomen): normal bowel sounds, soft, nontender, no hepatosplenomegaly Musculoskeletal: No pedal edema Neurologic: PERRL, EOMI, accommodation nl, no face palsy, no dysarthria Psychiatric: A+Ox3, euthymic affect Results & Data Results & Data Vital Signs (Past 12 Hours) Vital Signs Temp Pulse Pulse Resp BP Pulse Ox O2 Del Method 06/15/23 08:37 36.7 C 77 18 137/65 92 Nasal Cannula 06/15/23 07:00 72 06/15/23 03:24 37.0 C 81 17 101/59 L 91 Nasal Cannula 06/15/23 02:00 77 06/14/23 23:49 36.9 C 82 17 124/54 L 93 Nasal Cannula 06/14/23 23:38 Nasal Cannula O2 Flow Rate 06/15/23 08:37 2.0 06/15/23 07:00 06/15/23 03:24 2 06/15/23 02:00 06/14/23 23:49 2 06/14/23 23:38 1.5 Laboratory Results Abnormal lab results 06/14/23 06/14/23 06/15/23 Range/Units 15:14 19:51 05:33 RBC 3.97 L (4.20-5.40) M/uL Hgb 11.5 L (12.0-16.0) g/dl Hct 36.0 L (37.0-47.0) % MCHC 31.9 L (32.0-36.0) g/dL MPV 9.1 L (9.4-12.4) fL Heparin Anti-Xa, Unfract < 0.10 L (0.3-0.7) IU/ml Glucose 159 H (70-99(Fasting)) mg/dl POC Glucose 197 H 154 H (70-99) mg/dl 06/15/23 Range/Units 11:22 RBC (4.20-5.40) M/uL Hgb (12.0-16.0) g/dl Hct (37.0-47.0) % MCHC (32.0-36.0) g/dL MPV (9.4-12.4) fL Heparin Anti-Xa, Unfract (0.3-0.7) IU/ml Glucose (70-99(Fasting)) mg/dl POC Glucose 139 H (70-99) mg/dl
--- NOTE | 2023-06-15 11:03 | Electrocardiogram Report ---
Test Reason : Blood Pressure : / mmHG Vent. Rate : 076 BPM Atrial Rate : 076 BPM P-R Int : 124 ms QRS Dur : 106 ms QT Int : 388 ms P-R-T Axes : 068 014 -10 degrees QTc Int : 436 ms Normal sinus rhythm Inferior infarct (cited on or before 12-JUN-2023) Abnormal ECG Confirmed by Perez Franco ([id number]) on 06/15/2023 11:02:52 AM Referred By: REFERRED SELF Confirmed By:Facundo Franco
[2023-06-15] MEDS: niCARdipine HCL INJ 2.5 MG/ML 10 ML AMP ONE (14:43)
[2023-06-15] MEDS: NITROGLYCERIN/D5W 100MCG/ML 20ML SYR ONE (14:43)
[2023-06-15] MEDS: MIDAZOLAM HCL 1 MG/ML 2ML VIAL ONE (15:00)
[2023-06-15] MEDS: HEPARIN (PORCINE) 1000 UNIT/ML 10 ML (CATH LAB USE ONLY) ONE (15:00)
[2023-06-15] MEDS: OPTIRAY 350 ONE (15:01)
[2023-06-15] MEDS: IODIXANOL (VISIPAQUE) 320 MG/ML 100ML IV ONE (15:01)
[2023-06-15] MEDS: fentaNYL citrate PF 100 MCG/2 ML VIAL ONE (15:01)
--- NOTE | 2023-06-15 15:20 | Pre Anesthesia Assessment ---
Date of Service June 15, 2023 Pre Sedation Assessment Vital Signs Temp Pulse Pulse Pulse Resp BP Pulse Ox 06/15/23 15:13 78 14 129/68 94 06/15/23 14:12 157/86 H 82 L 06/15/23 11:20 36.8 C 78 18 126/67 94 06/15/23 08:37 36.7 C 77 18 137/65 92 06/15/23 07:00 72 06/15/23 03:24 37.0 C 81 17 101/59 L 91 06/15/23 02:00 77 06/14/23 23:49 36.9 C 82 17 124/54 L 93 06/14/23 23:38 06/14/23 19:43 36.4 C L 74 17 120/57 L 92 06/14/23 18:26 90 06/14/23 16:00 36.8 C 80 20 130/69 94 O2 Del Method O2 Flow Rate 06/15/23 15:13 Room Air 06/15/23 14:12 Room Air 06/15/23 11:20 Nasal Cannula 2 06/15/23 08:37 Nasal Cannula 2.0 06/15/23 07:00 06/15/23 03:24 Nasal Cannula 2 06/15/23 02:00 06/14/23 23:49 Nasal Cannula 2 06/14/23 23:38 Nasal Cannula 1.5 06/14/23 19:43 Nasal Cannula 2 06/14/23 18:26 06/14/23 16:00 Nasal Cannula 2 Cardiovascular RRR, no murmur, no edema Respiratory normal respiratory effort, lungs clear to auscultation Pre-Sedation Airway Assessment Smoking Status: Former smoker Hx Sleep Apnea: No Short, Thick Neck: No Thyromental Distance: > or= 3.5 Finger Breadths Oral Cavity: + Dentures Mallampati Class: III ASA: ASA4 NPO Status Date of Last Intake of Fluids: 06/14/23 Time of Last Intake of Fluids: 18:00 Date of Last Intake of Solid Food: 06/14/23 Time of Last Intake of Solid Foods: 18:00 Notes The planned sedation has been discussed with the patient. Informed Consent was obtained. I have identified the patient, determined the appropriateness of sedation and have assessed the patient immediately prior to the procedure. All medicine(s) and interventions are by my order. [facility] [place] Procedure Codes (Charges) Indication for Procedure Indication for procedure: NSTEMI Sedation/Anesthesia Procedure 1: Sedation/Anesthesia: 88421 Mod Sedation by the same physician;Init15 Min Child Age 5 & Up (INITIAL 15 MIN, start 1451, and 1503)
--- NOTE | 2023-06-15 16:02 | Communication Note ---
Date of Service: June 15, 2023 Cardiac catheterization films reviewed with Dr. Restrepo and images reviewed independently with findings of a chronic total occlusion of the mid right co ronary artery, severe stenosis of the proximal circumflex coronary artery, and serial high-grade stenosis of the mid and distal LAD and second diagonal. In the catheterization holding area, I discussed the results with patient, her daughter, Lois, and her daughter , Roxane. Recommend transfer to tertiary center for consideration of CABG versus high risk multivessel PCI. Patient/family agreeable. Bonnie Nixon,
--- NOTE | 2023-06-15 17:43 | Discharge Summary ---
Date of Service June 15, 2023 Admission HPI Per Admitting Provider The patient is a 77 yo F with no known cardiac history who presents with shortness of breath. She is requiring oxygen which she doesn't normally use during the day at home, but is on it at 2LPM at night for COPD. She reports SOB that has been progressive over the past two weeks, getting worse over the weekend. The weekend worsening was also associated with intermittent chest discomfort. that lasted SAt and Sun and then resolved. She reports that on Thursday, there was no further chest pain but her breathing got worse. She reports no increased cough outside of her usual sputum production and no fevers or chills. Nasal swab is negative today for viral illness. She reports her chest pain was in the left anterior chest wall and travelled to her left shoulder. Denies palpitations. It wasn't clear what was making the chest pain worse or better per history but it was described as intermittent. Pt reports normal appetite and normal BMs. She has had fatigue and difficulty sleeping 2/2 headaches at home that have been persistent since Jan. She takes 4-6 Advil or 4 Aleve per day to treat the headache but that typically won't completely help and she has to rely on oxycodone, but doesn't use this daily. As a result of the shortness of breath, she went to urgent care on and received a course of prednisone. She reports taking prednisone 50mg on and Thu with no improvement, and with breathing worsening she decided to come to the ER. Denies active chest pain at this time. She is still reporting some SOB as if she cannot take a full breath in. She reports using Nicorette lozenges approx 10 radha of 4mg daily since quitting smoking several years ago. She drinks two cups of coffee daily. She is a diabetic on metformin and has HTN and hyperlipidemia. CXR today reveals mild pulmonary edema and bilateral pleural effusions which are new. She does have a slight increase in her WBC count which may be from the prednisone or some other active inflammation. She was given one dose of Lasix 40mg IV and had 1800cc out in response to this. Admission Exam Per Admitting Provider CONSTITUTIONAL: WNWD, vitals as above, generally well-appearing, NAD EYES: normal conjunctivae, no scleral icterus ENT: external ear and nose normal, MMM RESPIRATORY: clear to auscultation bilaterally with mild crackles at the bases. No wheezing or rales or rhonchi, normal respiratory effort. CARDIOVASCULAR: regular rate and rhythm, S1 and 2 heard without murmurs, gallops or rubs, no JVD, no peripheral edema CHEST: inspection of chest was normal GASTROINTESTINAL: normal bowel sounds, soft, nontender, ND, no guarding MUSCULOSKELETAL: strength 5/5 throughout, head is normocephalic and atraumatic SKIN: warm and dry NEUROLOGIC: CN 2-12 grossly intact, no sensory deficit, normal cognition, normal speech, no tremor PSYCHIATRIC: alert cooperative and oriented to person, place and time. Euthymic mood, makes good eye contact, language grossly intact, recent and remote memory grossly intact. Intermittent confusion noted on occasion, but mostly clear. Principal Diagnosis Mutivessel Coronary Artery Disease Non ST elevated myocardial infarction Acute heart failure with preserved ejection fraction Discharge Exam Constitutional + well hydrated; no acute distress Eyes PERRL, conjunctivae normal, anicteric sclerae ENMT external ear and nose normal, oropharynx normal Respiratory normal respiratory effort; no respiratory distress Auscultation: + diminished lung sounds Cardiovascular Rate/Rhythm: regular rate and regular rhythm S1 S2 Gastrointestinal (Abdomen) normal bowel sounds, soft, nontender, no hepatosplenomegaly Musculoskeletal No pedal edema Neurologic PERRL, EOMI, accommodation nl, no face palsy, no dysarthria Psychiatric A+Ox3, euthymic affect Discharge Data Allergies Allergy/AdvReac Type Severity Reaction Status Date / Time Bactrim Allergy Intermediate GI SYMPTOMS Verified 12/11/16 20:08 sulfamethoxazole AdvReac Intermediate GI SYMPTOMS Verified 03/31/23 14:00 trimethoprim AdvReac Intermediate GI SYMPTOMS Verified 03/31/23 14:00 clarithromycin AdvReac Mild NAUSEA AND Verified 03/31/23 14:00 VOMITING Consultations 06/12/23 16:17 ED Decision to Admit Stat 06/13/23 01:14 Consult Cardiology Routine Procedures Performed Operation Date: 06/15/23 12:30 Actual Procedures s Cineradiography w/Routine Exam - Tom Restrepo MD, PhD p Cath, Left with Cors and Vent - Tom Restrepo MD, PhD Ordered Studies 06/15/23 06:49 CL Cath Imgs for PACS use only Routine Hospital Course (1) NSTEMI (non-ST elevated myocardial infarction): (2) Acute heart failure with preserved ejection fraction (HFpEF): (3) Shortness of breath: Patient had presented with shortness of breath that has progressively worsened over the past 2 weeks and reported intermittent chest discomfort within the past week. She usually uses oxygen at 2 L/min at bedtime. She reported progressive symptoms despite outpatient prednisone therapy. On presentation was noted to have elevated high-sensitivity troponin of [address] depression in lead I and V4 to V6 Patient was started on IV heparin And aspirin. Home atorvastatin increased to 40 mg daily. Echocardiogram showed mild concentric LVH, small size inferior wall motion abnormality with hypokinesis of the basal segment of the inferior wall, EF of 55 to 60%, mild MR, grade 2 diastolic dysfunction Chest x-ray showed cardiomegaly with mild pulmonary edema and small bilateral pleural effusion. Patient got IV Lasix on admission with brisk diuresis Patient was started on metoprolol succinate 25mg. Cardiac catheterization today showed chronic total occlusion of the mid right coronary artery, severe stenosis of the proximal circumflex coronary artery, and serial high-grade stenosis of the mid and distal LAD and second diagonal. Staff Air Defense Officer recommended transfer to tertiary center for CABG vs high risk multivessel PCI Patient accepted to [facility] for eval Will be transferred with IV heparin drip running with ACLS ground transport (4) Diabetes mellitus, type 2: Takes metformin at home HbA1c 8.4 (5) Migraine: Chronic Stopped home ibuprofen at this time No headache at this time Also uses oxygen prn migraine (6) Hypertension: Continue home losartan (7) Chronic obstructive pulmonary disease: Not in exacerbation. Cont home inhalers. (8) Nocturnal hypoxemia: Per records she is chronically on 2-3 LPM at night for treatment of COPD. Total Time Total Time Spent Total Time Spent (In Minutes): 40 Total Time Includes: Examination of the Patient, Discharge Planning, Medication Reconciliation and Communication With Other Providers Discharge Plan Discharge Items Patient Disposition: Transfer Acute Care Hospital Reason For Visit: SHORTNESS OF BREATH Discharge Diagnosis: Mutivessel Coronary Artery Disease Non ST elevated myocardial infarction Acute heart failure with preserved ejection fraction Activity: As commented below Non-emergency contact: Primary Care Provider Call non-emergency contact if: you have any medication questions and your symptoms worsen Follow-up/Referrals: Cordell Yi MD [Primary Care Provider] - Diet: Carb Consistent or DM2 and Heart Healthy Addtl Attending Provider Instructions: Mrs Watters You came to the hospital with shortness of breath. You were extensively evaluated. You had a cardiac catheterization and found to have multivessel coronary artery disease. You are being transferred to [facility] for evaluation for possible cardiac bypass vs multivessel intervention. It was a pleasure taking care of you. Pending Studies at Discharge: No Stand-Alone Forms: My [facility] Skilled Items Patient informed of condition?: Yes DNR: No Discharge Level of Care: Other Communicable Disease: No Discharge Prognosis: Stable Lines: Peripheral IV Urinary Catheter: No Medications and DC Order Prescriptions: New metoprolol succinate 25 mg Tablet Extended Release 24 Hr 25 mg PO QAM Qty: 60 0RF aspirin 81 mg Tablet,Delayed Release (Dr/Ec) 81 mg PO QAM Qty: 30 0RF Continued ipratropium-albuterol 0.5 mg-3 mg(2.5 mg base)/3 mL solution for nebulization 3 ml INH Q6H PRN (Reason: wheezing, dyspnea, cough ) Qty: 90 3RF Patient Comments: not used in long time (DME) Oxygen Home E0424 Liters Per Minute See Rx Instructions .Route Qty: 1 0RF Rx Instructions: 2LPM at night omeprazole 20 mg tablet,delayed release (DR/EC) 20 mg PO QAM Trelegy Ellipta 200-62.5-25 mcg blister with device 1 inh inhalation DAILY Qty: 90 3RF albuterol sulfate 90 mcg/actuation HFA aerosol inhaler 2 puff INHALATION Q4H PRN (Reason: Wheezing) Qty: 6.7 3RF oxycodone-acetaminophen [Percocet] 5-325 mg tablet 1 tab PO Q6H PRN (Reason: pain) Qty: 20 0RF losartan 25 mg Tablet 25 mg PO HS metformin 500 mg tablet 500 mg PO BID nortriptyline 10 mg capsule 50 mg PO HS baclofen 10 mg tablet 10 mg PO HS lubiprostone [Amitiza] 24 mcg capsule 24 mcg PO BID Changed atorvastatin 20 mg tablet 40 mg PO QAM Qty: 60 0RF Discontinued ibuprofen [Advil] 200 mg Tablet 200 mg PO QID PRN (Reason: Pain) prednisone 10 mg tablet See Rx Instructions .ROUTE .COMPLEX Patient Comments: Stopped taking, felt like it wasnt working Rx Instructions: tapering dose, but pt stopped taking. Discharge Orders: Discharge Order (Routine); Ordered 06/15/23 Ordered By: Izabella Miller/Other Patient Handouts: Managing Type 2 Diabetes Admission Data Admit Date/Time: 06/12/23 18:42 Attending Provider: Izabella Marie I. Admit Provider: Reha Benedict Primary Care Provider: Cordell Yi Other Providers: Rhea Benedict; Tom Nixon
[2023-06-15] MEDS ORDERED: Heparin IV Adult Wt-Based Standard *NO* INITIAL Bolus Protocol IV SCH (17:45)
--- NOTE | 2023-06-15 18:17 | Cardiac Catheterization ---
[facility] Data: Pool Nurse Cardiac Status Clinical evaluation leading to the procedure CAD Presenation: Non STEMI Diagnostic Physicians Name: Tom Restrepo MD, PhD Closure Device Recommendations: CABG Cardiac Cath Procedure Full Procedure Date June 15, 2023 Pre-Procedure Diagnosis Pre-Procedure Diagnosis: Non STEMI AUC Score AUC Score: 07 Post-Procedure Diagnosis Post-Procedure Diagnosis: Severe CAD Procedure(s) Performed Procedure(s) Performed: Coronary Angiography, Left Heart Cath and LV Angiography Independent Crop Consultant Tom Restrepo MD, PhD Estimated Blood Loss Estimated Blood Loss: 5 mL Medication(s) Medication(s): Fentanyl, Heparin, Lidocaine 1%, Nicardipine, Nitroglycerin and Versed Summary of Findings Brief description: Patient was brought to the cardiac catheterization suite where she was shaved and prepped in a sterile fashion. Sedated using IV Versed and fentanyl. Soft tissues of the right wrist were anesthetized using 2 mL of 1% Xylocaine. The right radial artery was accessed with a modified Seldinger technique and a 6 Gambian radial artery glide sheath was placed. All catheters were advanced and exchanged over a 0.035 J-tip wire. Patient was provided anticoagulation with IV heparin and antispasmodics including nicardipine and nitroglycerin. Left coronary angiography in orthogonal views with a 5 [place] Polvadera 4 diagnostic catheter. Right coronary angiography in orthogonal views with a 5 [place] Polvadera 4 diagnostic catheter. Left heart cath and left ventriculogram were performed with a 5 Gambian pigtail catheter. All diagnostic catheters were removed. Radial artery sheath was removed. Hemostasis was obtained using the TR band. Patient was hemodynamically stable and asymptomatic. She was returned to the recovery area. This ended the case. Coronary angiography findings: [id number] vessel trifurcating into LAD, circumflex, and ramus. No disease. [id number] and transapical. Proximal segment is normal and gives a normal septal branch. There is a small first diagonal with ostial 99% stenosis. Mid segment is calcified with diffuse disease of up to 90%. At the second diagonal ostium there is 95 to 99% stenosis extending into the early distal vessel. There is a medium caliber branching second diagonal with proximal 80 to 90% stenosis. LCx-proximal eccentric 90% stenosis. It gives a medium to large caliber branching OM1 which has mild luminal irregularities. The mid and distal AV groove circumflex paper and then terminate in a small posterolateral branch. Ramus-small caliber branching vessel with severe disease. KGM-[id number]-[id number] and moderately calcified vessel. Proximal segment of 50 to 70% narrowing followed by a focal 80 to 90% stenosis. Mid segment is calcified with an 80% stenosis. The distal vessel is 100% occluded. It bifurcates into the PDA and posterolateral branches which fills via left to right collateralization. They are relatively large in caliber. LVEF-40 to 45% Akinesis of the inferior myocardium. Anterior and apical myocardium appear normal in motion. 1-2+ mitral regurgitation Summary: 1. Severe multivessel coronary disease as described. 2. Mildly to moderately reduced EF in OSEGUERA projection by left ventriculogram. Akinetic inferior myocardium consistent with occluded RCA. 3. Elevated left ventricular filling pressure. 4. Refer to tertiary center regarding coronary artery bypass grafting versus complex multivessel PCI. 5. Guideline directed medical therapy for secondary prevention of coronary artery disease per primary decorator mannequin Hemodynamics Rest Ao:: 113/64 mmHg Final Ao: 106/58 mmHg LV: 113/15 mmHg, LVEDP 27 mmHg Recommendations Recommendations: CABG Radiation Exposure (mGy) 710 mGy, fluoroscopy time 2.0 minutes Contrast (mls) 65 mL Anesthesia 1 mg IV Versed, 25 mcg IV fentanyl. Start 1451, End 1503 Procedural Complication(s) None Disposition Pool Nurse Holding/Recovery I attest to the content of the Intraoperative Record and any orders documented therein. Any exceptions are noted below. [facility] Card Cath Procedure Codes Cardiac Catheterization Procedure 1: Cardiovascular Cath Procedures: 65311 Coronaries and LHC (+/-LV) Moderate Sedation Procedure 1: Sedation/Anesthesia: 41681 Mod Sedation by the same physician;Init15 Min Child Age 5 & Up (Initial 15 min. Start 1451, and 1503) PG Care Time/CCT Total # of Minutes Spent Total Time Spent with Patient: Total time spent is greater than 50% in coordination of care (as documented) at patient's floor/unit and/or counseling patient:
[2023-06-15] MEDS: HEPARIN SODIUM/DEXTROSE 25,000 UNITS/500 ML BAG IV SCH (18:35)
[2023-06-15 21:47] LABS: Influenza A virus by PCR Negative (Neg); Influenza B virus by PCR Negative (Neg); RSV by PCR Negative (Neg); SARS CoV2 RNA(COVID-19) Ceph NEGATIVE (Negative)
[2023-06-16 01:01] LABS: ANTI-Xa, UFH(UnfractionatedHep 0.16 IU/ml (0.3-0.7)
== END 2023-06-16 00:55 | disposition short-term general hospital (02) | DRG 280 ==
LOC: ED 13:48 → EDINP 18:42 → SUATTDRO 18:42 → 2E 21:03